=== PATIENT | female | born 1990 | race Caucasian/White ===

== ENCOUNTER 2017-07-22 17:06 | Inpatient (IN) | payer OTHER ==
[2017-07-22] MEDS: SOD CHLORIDE 0.9% 500 ML IV (18:46)
[2017-07-22 18:48] LABS: ADD UMIC NO; UR ASCORBIC ACID NEGATIVE (NEGATIVE); UR BILIRUBIN (Dip) 2+ mg/dL (NEGATIVE); UR BLOOD (Dip) NEGATIVE (NEGATIVE); UR CLARITY CLEAR (CLEAR); UR COLOR AMBER (YELLOW); UR GLUCOSE (Dip) NEGATIVE (NEGATIVE); UR KETONES (Dip) NEGATIVE (NEGATIVE); UR LEUKOCYTE ESTERASE (Dip) NEGATIVE Leu/ul (NEGATIVE); UR NITRITE (Dip) NEGATIVE (NEGATIVE); UR SPECIFIC GRAVITY (Dip) 1.013 (1.003-1.030); UR TOTAL PROTEIN (Dip) NEGATIVE (NEGATIVE); UR UROBILINOGEN (Dip) 1+ mg/dL (NEGATIVE)
[2017-07-22 18:49] LABS: ADD MAN DIFF? NO
[2017-07-22 18:52] LABS: WHITE BLOOD COUNT 7.3 10^3/ul (4.8-10.8)
[2017-07-22 18:52] LABS: BASOPHILS % 0.4 % (0.0-2.0); EOSINOPHILS # 0.1 10^3/ul (0.0-0.5); EOSINOPHILS % 0.7 % (0.0-7.0); HEMATOCRIT 25.1 % (37.0-47.0); HEMOGLOBIN 8.4 g/dl (12.0-16.0); LYMPHOCYTES # 1.6 10^3/ul (0.8-2.9); LYMPHOCYTES % 21.1 % (15.0-51.0); MEAN CORPUSCULAR HEMOGLOBIN 32.1 pg (29.0-33.0); MEAN CORPUSCULAR HGB CONC 33.5 g/dl (32.0-37.0); MEAN CORPUSCULAR VOLUME 95.8 fl (82.0-101.0); MEAN PLATELET VOLUME 10.7 fl (7.4-10.4); MONOCYTE # 0.9 10^3/ul (0.3-0.9); MONOCYTES % 11.9 % (0.0-11.0); NEUTROPHIL # 4.8 10^3/ul (1.6-7.5); NEUTROPHILS % 65.4 % (39.0-77.0); PLATELET COUNT 130 10^3/UL (140-415); RED BLOOD COUNT 2.62 10^6/ul (4.20-5.40); RED CELL DISTRIBUTION WIDTH 19.2 % (11.5-14.5)
[2017-07-22 18:54] LABS: POSITIVE DIFF @See below
[2017-07-22 19:12] LABS: ALANINE AMINOTRANSFERASE 34 IU/L (13-69); ALBUMIN 3.2 g/dl (3.3-4.9); ALBUMIN/GLOBULIN RATIO 0.84; ALKALINE PHOSPHATASE 199 IU/L (42-121); ANION GAP 19 (8-16); ASPARTATE AMINO TRANSFERASE 57 IU/L (15-46); BILIRUBIN,INDIRECT 4.4 mg/dl (0-1.1); BILIRUBIN,TOTAL 15.3 mg/dl (0.2-1.3); BLOOD UREA NITROGEN 3 mg/dl (7-20); CALCIUM 9.1 mg/dl (8.4-10.2); CARBON DIOXIDE 21 mmol/L (21-31); CHLORIDE 102 mmol/L (97-110); CREATININE 0.75 mg/dl (0.44-1.00); GLUCOSE 91 mg/dl (70-220); INR 2.75; LIPASE 28 U/L (23-300); POTASSIUM 4.7 mmol/L (3.5-5.1); PROTIME 29.5 Sec (12.2-14.2); PT RATIO 2.3; SODIUM 137 mmol/L (135-144)
[2017-07-22 19:13] LABS: AMMONIA 48 umol/l (9-30)
[2017-07-22 19:15] LABS: LACTIC ACID 3.4 mmol/L (0.5-2.0)
[2017-07-22 19:23] LABS: TROPONIN-I 0.014 ng/ml (0.00-0.12)
[2017-07-22] MEDS: LACTULOSE 30ML CUP PO (19:28)
[2017-07-22] MEDS: KETOCONAZOLE 2% 15 GM CR TOP (20:15)
[2017-07-22] MEDS ORDERED: traMADol 50 MG TAB PO (22:30)
[2017-07-23] MEDS: PANTOPRAZOLE (EC) 40 MG TAB PO ×2 (06:00→07:30)
[2017-07-23] MEDS: LACTULOSE 30ML CUP PO ×6 (06:00→22:00)
[2017-07-23] MEDS: LEVOTHYROXINE 50 MCG TAB PO ×2 (07:00→07:29)
[2017-07-23 07:12] LABS: AMMONIA 46 umol/l (9-30)
[2017-07-23 07:18] LABS: ANION GAP 13 (8-16); BLOOD UREA NITROGEN 3 mg/dl (7-20); CALCIUM 9.2 mg/dl (8.4-10.2); CARBON DIOXIDE 23 mmol/L (21-31); CHLORIDE 106 mmol/L (97-110); CREATININE 0.69 mg/dl (0.44-1.00); GLUCOSE 75 mg/dl (70-220); POTASSIUM 4.7 mmol/L (3.5-5.1); SODIUM 137 mmol/L (135-144)
[2017-07-23] MEDS: FUROSEMIDE 40 MG INJ IV (07:33)
[2017-07-23] MEDS: THIAMINE 100 MG TAB PO (08:19)
[2017-07-23] MEDS: PROPRANOLOL 20 MG TAB PO ×2 (08:19→21:00)
[2017-07-23] MEDS: SPIRONOLACTONE 50 MG TAB PO (08:19)
[2017-07-23] MEDS: RIFAXIMIN 550 MG TAB PO ×2 (08:19→21:00)
[2017-07-23] MEDS: FOLIC ACID 1 MG TAB PO (08:19)
[2017-07-23] MEDS ORDERED: SOD CHLORIDE 0.9% 1,000 ML IV (23:00)
[2017-07-24] MEDS: SOD CHLORIDE 0.9% 500 ML IV ×3 (00:38→20:15)
[2017-07-24 05:49] LABS: AADO2 Arterial 187.3 mmHg (7.0-24.0); Allen Test ACCEPTAB; Arterial Blood Gas Oxygen Sat 97.6 mmHG (95.0-98.0); Arterial COHb 0.6 % (0.0-3.0); Arterial HCO3 21.6 mmol/L (22.0-26.0); Arterial MetHb 0 % (0.0-1.5); Arterial Total Hemglobin 9.4 g/dl (12.0-18.0); Arterial pCO2 28.5 mmhg (35-45); MODE NASAL CANNULA; Site Left Radial
[2017-07-24 06:19] LABS: ADD MAN DIFF? NO
[2017-07-24 06:21] LABS: WHITE BLOOD COUNT 9.9 10^3/ul (4.8-10.8)
[2017-07-24 06:21] LABS: BASOPHILS % 0.3 % (0.0-2.0); EOSINOPHILS % 0.1 % (0.0-7.0); HEMATOCRIT 25.3 % (37.0-47.0); HEMOGLOBIN 8.6 g/dl (12.0-16.0); LYMPHOCYTES # 2.7 10^3/ul (0.8-2.9); LYMPHOCYTES % 27.2 % (15.0-51.0); MEAN CORPUSCULAR HEMOGLOBIN 32.3 pg (29.0-33.0); MEAN CORPUSCULAR VOLUME 95.1 fl (82.0-101.0); MONOCYTE # 1.3 10^3/ul (0.3-0.9); MONOCYTES % 13.1 % (0.0-11.0); NEUTROPHIL # 5.7 10^3/ul (1.6-7.5); NEUTROPHILS % 57.6 % (39.0-77.0); PLATELET COUNT 204 10^3/UL (140-415); RED BLOOD COUNT 2.66 10^6/ul (4.20-5.40); RED CELL DISTRIBUTION WIDTH 19.7 % (11.5-14.5)
[2017-07-24 06:49] LABS: ALANINE AMINOTRANSFERASE 39 IU/L (13-69); ALBUMIN 3.4 g/dl (3.3-4.9); ALBUMIN/GLOBULIN RATIO 0.77; ALKALINE PHOSPHATASE 199 IU/L (42-121); ANION GAP 19 (8-16); ASPARTATE AMINO TRANSFERASE 90 IU/L (15-46); BILIRUBIN,INDIRECT 5.1 mg/dl (0-1.1); BILIRUBIN,TOTAL 17.2 mg/dl (0.2-1.3); BLOOD UREA NITROGEN 6 mg/dl (7-20); CALCIUM 9.7 mg/dl (8.4-10.2); CARBON DIOXIDE 22 mmol/L (21-31); CHLORIDE 105 mmol/L (97-110); CREATININE 0.92 mg/dl (0.44-1.00); GLUCOSE 72 mg/dl (70-220); POTASSIUM 4.3 mmol/L (3.5-5.1); SODIUM 142 mmol/L (135-144); TOTAL PROTEIN 7.8 g/dl (6.1-8.1)
[2017-07-24] MEDS: BISACODYL 10 MG SUPP PR (06:51)
[2017-07-24] MEDS: FUROSEMIDE 40 MG INJ IV (06:59)
[2017-07-24 07:02] LABS: AMMONIA 66 umol/l (9-30)
[2017-07-24] MEDS: PANTOPRAZOLE (EC) 40 MG TAB PO (12:58)
[2017-07-24] MEDS: RIFAXIMIN 550 MG TAB PO ×2 (12:58→21:36)
[2017-07-24] MEDS: THIAMINE 100 MG TAB PO (12:58)
[2017-07-24] MEDS: SPIRONOLACTONE 50 MG TAB PO (12:59)
[2017-07-24] MEDS: LEVOTHYROXINE 50 MCG TAB PO (12:59)
[2017-07-24] MEDS: PROPRANOLOL 20 MG TAB PO ×2 (12:59→21:45)
[2017-07-24] MEDS: LACTULOSE 30ML CUP PO ×2 (13:00→21:36)
[2017-07-24] MEDS: FOLIC ACID 1 MG TAB PO (13:00)
[2017-07-25] MEDS: SOD CHLORIDE 0.9% 500 ML IV ×2 (06:15→21:09)
[2017-07-25] MEDS: PANTOPRAZOLE (EC) 40 MG TAB PO (06:48)
[2017-07-25] MEDS: LACTULOSE 30ML CUP PO ×4 (06:48→21:06)
[2017-07-25] MEDS: FUROSEMIDE 40 MG INJ IV (06:50)
[2017-07-25 08:17] LABS: ADD MAN DIFF? NO
[2017-07-25 08:20] LABS: WHITE BLOOD COUNT 8.7 10^3/ul (4.8-10.8)
[2017-07-25 08:20] LABS: BASOPHILS % 0.5 % (0.0-2.0); EOSINOPHILS # 0.1 10^3/ul (0.0-0.5); EOSINOPHILS % 0.6 % (0.0-7.0); HEMATOCRIT 27.1 % (37.0-47.0); HEMOGLOBIN 9.2 g/dl (12.0-16.0); LYMPHOCYTES # 2.2 10^3/ul (0.8-2.9); LYMPHOCYTES % 25.8 % (15.0-51.0); MEAN CORPUSCULAR HEMOGLOBIN 31.7 pg (29.0-33.0); MEAN CORPUSCULAR HGB CONC 33.9 g/dl (32.0-37.0); MEAN CORPUSCULAR VOLUME 93.4 fl (82.0-101.0); MEAN PLATELET VOLUME 10.8 fl (7.4-10.4); MONOCYTES % 11.9 % (0.0-11.0); NEUTROPHIL # 5.1 10^3/ul (1.6-7.5); NEUTROPHILS % 59.2 % (39.0-77.0); PLATELET COUNT 182 10^3/UL (140-415); RED CELL DISTRIBUTION WIDTH 19.9 % (11.5-14.5)
[2017-07-25 09:09] LABS: ANION GAP 20 (8-16); BLOOD UREA NITROGEN 9 mg/dl (7-20); CALCIUM 9.2 mg/dl (8.4-10.2); CARBON DIOXIDE 22 mmol/L (21-31); CHLORIDE 106 mmol/L (97-110); GLUCOSE 90 mg/dl (70-220); POTASSIUM 3.6 mmol/L (3.5-5.1); SODIUM 144 mmol/L (135-144)
[2017-07-25] MEDS: PROPRANOLOL 20 MG TAB PO ×2 (10:53→22:14)
[2017-07-25] MEDS: SPIRONOLACTONE 50 MG TAB PO (10:54)
[2017-07-25] MEDS: RIFAXIMIN 550 MG TAB PO ×2 (10:54→22:23)
[2017-07-25] MEDS: FOLIC ACID 1 MG TAB PO (10:54)
[2017-07-25] MEDS: THIAMINE 100 MG TAB PO (10:54)
[2017-07-25] MEDS: MEROPENEM 1 GM/50ML(PMX) 50 ML IVPB ×2 (10:55→22:00)
[2017-07-25] MEDS: D5W-0.45 NACL + KCL 20 MEQ 1,000 ML IV ×2 (10:57→21:10)
[2017-07-25] MEDS: LEVOTHYROXINE 50 MCG TAB PO (10:58)
[2017-07-26] MEDS: LACTULOSE 30ML CUP PO ×6 (01:05→21:37)
[2017-07-26] MEDS: SOD CHLORIDE 0.9% 500 ML IV (02:45)
[2017-07-26] MEDS: FUROSEMIDE 40 MG INJ IV (05:36)
[2017-07-26] MEDS: PANTOPRAZOLE (EC) 40 MG TAB PO (05:36)
[2017-07-26 05:46] LABS: ADD MAN DIFF? NO
[2017-07-26 05:50] LABS: WHITE BLOOD COUNT 5.6 10^3/ul (4.8-10.8)
[2017-07-26 05:50] LABS: ABNORMAL IP MESSAGE 1; BASOPHILS % 0.2 % (0.0-2.0); EOSINOPHILS % 0.5 % (0.0-7.0); HEMATOCRIT 15.8 % (37.0-47.0); LYMPHOCYTES # 1.4 10^3/ul (0.8-2.9); LYMPHOCYTES % 24.2 % (15.0-51.0); MEAN CORPUSCULAR HEMOGLOBIN 33.1 pg (29.0-33.0); MEAN CORPUSCULAR HGB CONC 32.3 g/dl (32.0-37.0); MEAN CORPUSCULAR VOLUME 102.6 fl (82.0-101.0); MEAN PLATELET VOLUME 10.6 fl (7.4-10.4); MONOCYTE # 0.7 10^3/ul (0.3-0.9); MONOCYTES % 11.6 % (0.0-11.0); NEUTROPHIL # 3.5 10^3/ul (1.6-7.5); NEUTROPHILS % 62.1 % (39.0-77.0); NUCLEATED RED BLOOD CELLS% 0.4 /100WBC (0.0-0.0); PLATELET COUNT 90 10^3/UL (140-415); RED BLOOD COUNT 1.54 10^6/ul (4.20-5.40)
[2017-07-26 06:13] LABS: POSITIVE DIFF @See below
[2017-07-26 06:17] LABS: HEMOGLOBIN 5.1 g/dl (12.0-16.0)
[2017-07-26 06:19] LABS: PATH REVIEWED BY Y
[2017-07-26 07:03] LABS: ANISOCYTOSIS 1+ (0-0); BAND NEUTROPHILS #M 0.1 10^3/ul (0.0-0.6); BAND NEUTROPHILS % (M) 3 % (0-4); BURR CELLS 3+ (0-0); EOSINOPHILS % (M) 1 % (0-7); GIANT THROMBO% (M) 1 % (0-0); LYMPHOCYTES #M 0.9 10^3/ul (0.8-2.9); LYMPHOCYTES % (M) 17 % (15-51); METAMYELOCYTES %M 1 % (0-0); MONOCYTES % (M) 1 % (0-11); PLATELET ESTIMATE DECREASED; POIKILOCYTOSIS 3+ (0-0); POLYCHROMASIA 3+ (0-0); REACTIVE LYMPHOCYTES% (M) 1 % (0-0); SEG NEUT #M 4.3 10^3/ul (1.7-7.5); SEGMENTED NEUTROPHILS (M) % 76 % (39-77); SMUDGE%M 6 % (0-0)
[2017-07-26 07:23] LABS: ANION GAP 17 (8-16); BLOOD UREA NITROGEN 10 mg/dl (7-20); CALCIUM 8.5 mg/dl (8.4-10.2); CARBON DIOXIDE 21 mmol/L (21-31); CHLORIDE 110 mmol/L (97-110); CREATININE 1.16 mg/dl (0.44-1.00); GLUCOSE 139 mg/dl (70-220); POTASSIUM 3.3 mmol/L (3.5-5.1); SODIUM 145 mmol/L (135-144)
[2017-07-26] MEDS: LEVOTHYROXINE 50 MCG TAB PO (08:00)
[2017-07-26] MEDS: THIAMINE 100 MG TAB PO (09:11)
[2017-07-26] MEDS: SPIRONOLACTONE 50 MG TAB PO (09:12)
[2017-07-26] MEDS: FOLIC ACID 1 MG TAB PO (09:12)
[2017-07-26] MEDS: RIFAXIMIN 550 MG TAB PO ×2 (09:12→21:38)
[2017-07-26] MEDS: MEROPENEM 1 GM/50ML(PMX) 50 ML IVPB ×2 (09:48→21:38)
[2017-07-26] MEDS: PROPRANOLOL 20 MG TAB PO ×2 (09:48→21:37)
[2017-07-26 11:02] LABS: ADD MAN DIFF? NO
[2017-07-26 11:04] LABS: BASOPHILS % 0.2 % (0.0-2.0); EOSINOPHILS % 0.5 % (0.0-7.0); HEMATOCRIT 21.8 % (37.0-47.0); LYMPHOCYTES # 2.1 10^3/ul (0.8-2.9); MEAN CORPUSCULAR HEMOGLOBIN 32.9 pg (29.0-33.0); MEAN CORPUSCULAR HGB CONC 34.9 g/dl (32.0-37.0); MEAN CORPUSCULAR VOLUME 94.4 fl (82.0-101.0); MEAN PLATELET VOLUME 11.7 fl (7.4-10.4); MONOCYTE # 1.1 10^3/ul (0.3-0.9); MONOCYTES % 12.7 % (0.0-11.0); NEUTROPHILS % 59.7 % (39.0-77.0); NUCLEATED RED BLOOD CELLS% 0.2 /100WBC (0.0-0.0); PLATELET COUNT 142 10^3/UL (140-415); RED BLOOD COUNT 2.31 10^6/ul (4.20-5.40); RED CELL DISTRIBUTION WIDTH 20.2 % (11.5-14.5)
[2017-07-26 11:04] LABS: WHITE BLOOD COUNT 8.3 10^3/ul (4.8-10.8)
[2017-07-26 11:09] LABS: HEMOGLOBIN 7.6 g/dl (12.0-16.0)
[2017-07-26] MEDS: D5W-0.45 NACL + KCL 20 MEQ 1,000 ML IV (13:24)
[2017-07-26] MEDS: POTASSIUM CHLORIDE 250 ML IVPB (14:37)
[2017-07-26] MEDS: LIDOCAINE 1% (MPF) 5 ML VIAL SC (19:05)
[2017-07-26] MEDS: SOD CHLORIDE 0.9% 100 ML (19:15)
[2017-07-27] MEDS: LACTULOSE 30ML CUP PO ×6 (00:58→20:42)
[2017-07-27] MEDS: D5W-0.45 NACL + KCL 20 MEQ 1,000 ML IV ×3 (00:58→21:24)
[2017-07-27 05:34] LABS: ADD MAN DIFF? NO
[2017-07-27 05:43] LABS: WHITE BLOOD COUNT 7.7 10^3/ul (4.8-10.8)
[2017-07-27 05:43] LABS: BASOPHILS % 0.4 % (0.0-2.0); EOSINOPHILS # 0.1 10^3/ul (0.0-0.5); HEMATOCRIT 23.9 % (37.0-47.0); HEMOGLOBIN 8.3 g/dl (12.0-16.0); LYMPHOCYTES # 1.8 10^3/ul (0.8-2.9); LYMPHOCYTES % 23.8 % (15.0-51.0); MEAN CORPUSCULAR HEMOGLOBIN 32.8 pg (29.0-33.0); MEAN CORPUSCULAR HGB CONC 34.7 g/dl (32.0-37.0); MEAN CORPUSCULAR VOLUME 94.5 fl (82.0-101.0); MEAN PLATELET VOLUME 10.8 fl (7.4-10.4); MONOCYTE # 0.8 10^3/ul (0.3-0.9); MONOCYTES % 10.1 % (0.0-11.0); NEUTROPHIL # 4.8 10^3/ul (1.6-7.5); NEUTROPHILS % 62.5 % (39.0-77.0); PLATELET COUNT 149 10^3/UL (140-415); RED BLOOD COUNT 2.53 10^6/ul (4.20-5.40); RED CELL DISTRIBUTION WIDTH 21.4 % (11.5-14.5)
[2017-07-27] MEDS: FUROSEMIDE 40 MG INJ IV (06:01)
[2017-07-27 06:02] LABS: AMMONIA 75 umol/l (9-30)
[2017-07-27] MEDS: PANTOPRAZOLE (EC) 40 MG TAB PO (06:02)
[2017-07-27] MEDS: LEVOTHYROXINE 50 MCG TAB PO (06:02)
[2017-07-27 06:19] LABS: ALANINE AMINOTRANSFERASE 35 IU/L (13-69); ALBUMIN/GLOBULIN RATIO 0.66; ALKALINE PHOSPHATASE 162 IU/L (42-121); ANION GAP 14 (8-16); ASPARTATE AMINO TRANSFERASE 90 IU/L (15-46); BILIRUBIN,INDIRECT 4.6 mg/dl (0-1.1); BILIRUBIN,TOTAL 16.5 mg/dl (0.2-1.3); BLOOD UREA NITROGEN 8 mg/dl (7-20); CALCIUM 9.3 mg/dl (8.4-10.2); CARBON DIOXIDE 23 mmol/L (21-31); CHLORIDE 115 mmol/L (97-110); CREATININE 0.98 mg/dl (0.44-1.00); GLUCOSE 148 mg/dl (70-220); POTASSIUM 3.5 mmol/L (3.5-5.1); SODIUM 148 mmol/L (135-144); TOTAL PROTEIN 7.5 g/dl (6.1-8.1)
[2017-07-27 06:20] LABS: ANION GAP 18 (8-16); BLOOD UREA NITROGEN 9 mg/dl (7-20); CARBON DIOXIDE 21 mmol/L (21-31); CHLORIDE 113 mmol/L (97-110); CREATININE 0.97 mg/dl (0.44-1.00); GLUCOSE 149 mg/dl (70-220); MAGNESIUM 1.1 mg/dl (1.7-2.5); POTASSIUM 3.5 mmol/L (3.5-5.1); SODIUM 148 mmol/L (135-144)
[2017-07-27] MEDS: MEROPENEM 1 GM/50ML(PMX) 50 ML IVPB ×2 (08:49→20:42)
[2017-07-27] MEDS: SPIRONOLACTONE 50 MG TAB PO (08:49)
[2017-07-27] MEDS: THIAMINE 100 MG TAB PO (08:49)
[2017-07-27] MEDS: FOLIC ACID 1 MG TAB PO (08:49)
[2017-07-27] MEDS: RIFAXIMIN 550 MG TAB PO ×2 (08:49→20:43)
[2017-07-27] MEDS: PROPRANOLOL 20 MG TAB PO ×2 (08:49→20:43)
[2017-07-27] MEDS: MAGNESIUM SULFATE 3 GM in DEXTROSE 5% 100 ML IVPB (18:36)
[2017-07-28] MEDS: LACTULOSE 30ML CUP PO ×6 (00:03→20:20)
[2017-07-28 05:11] LABS: ADD MAN DIFF? NO
[2017-07-28 05:19] LABS: BASOPHILS % 0.4 % (0.0-2.0); EOSINOPHILS # 0.1 10^3/ul (0.0-0.5); EOSINOPHILS % 1.4 % (0.0-7.0); HEMATOCRIT 23.9 % (37.0-47.0); HEMOGLOBIN 7.9 g/dl (12.0-16.0); LYMPHOCYTES # 1.2 10^3/ul (0.8-2.9); LYMPHOCYTES % 20.9 % (15.0-51.0); MEAN CORPUSCULAR HEMOGLOBIN 32.2 pg (29.0-33.0); MEAN CORPUSCULAR HGB CONC 33.1 g/dl (32.0-37.0); MEAN CORPUSCULAR VOLUME 97.6 fl (82.0-101.0); MEAN PLATELET VOLUME 10.9 fl (7.4-10.4); MONOCYTE # 0.5 10^3/ul (0.3-0.9); MONOCYTES % 9.5 % (0.0-11.0); NEUTROPHIL # 3.8 10^3/ul (1.6-7.5); PLATELET COUNT 143 10^3/UL (140-415); RED BLOOD COUNT 2.45 10^6/ul (4.20-5.40); RED CELL DISTRIBUTION WIDTH 21.5 % (11.5-14.5)
[2017-07-28 05:19] LABS: WHITE BLOOD COUNT 5.7 10^3/ul (4.8-10.8)
[2017-07-28] MEDS: FUROSEMIDE 40 MG INJ IV (05:44)
[2017-07-28] MEDS: PANTOPRAZOLE (EC) 40 MG TAB PO (05:44)
[2017-07-28 05:48] LABS: MAGNESIUM 2.1 mg/dl (1.7-2.5)
[2017-07-28] MEDS: LEVOTHYROXINE 50 MCG TAB PO (06:04)
[2017-07-28 06:34] LABS: ANION GAP 13 (8-16); BLOOD UREA NITROGEN 8 mg/dl (7-20); CALCIUM 8.8 mg/dl (8.4-10.2); CARBON DIOXIDE 22 mmol/L (21-31); CHLORIDE 119 mmol/L (97-110); CREATININE 0.74 mg/dl (0.44-1.00); GLUCOSE 134 mg/dl (70-220); POTASSIUM 3.7 mmol/L (3.5-5.1); SODIUM 150 mmol/L (135-144)
[2017-07-28] MEDS: PROPRANOLOL 20 MG TAB PO ×2 (08:32→20:20)
[2017-07-28] MEDS: THIAMINE 100 MG TAB PO (08:33)
[2017-07-28] MEDS: MEROPENEM 1 GM/50ML(PMX) 50 ML IVPB ×2 (08:33→20:10)
[2017-07-28] MEDS: FOLIC ACID 1 MG TAB PO (08:33)
[2017-07-28] MEDS: SPIRONOLACTONE 50 MG TAB PO (08:33)
[2017-07-28] MEDS: RIFAXIMIN 550 MG TAB PO ×2 (08:33→20:18)
[2017-07-28] MEDS: D5W-0.45 NACL + KCL 20 MEQ 1,000 ML IV (11:53)
[2017-07-28] MEDS: D5W + KCL 20 MEQ 1,000 ML IV ×2 (16:00→23:21)
[2017-07-28 17:56] LABS: SODIUM,URINE RANDOM 171 mmol/L (30-90)
[2017-07-28 18:54] LABS: OSMOLALITY,URINE 466 mOsm/kg (250-1200)
[2017-07-29] MEDS: LACTULOSE 30ML CUP PO ×6 (00:10→21:38)
[2017-07-29 04:58] LABS: ADD MAN DIFF? NO
[2017-07-29 05:13] LABS: WHITE BLOOD COUNT 7.5 10^3/ul (4.8-10.8)
[2017-07-29 05:13] LABS: ABNORMAL IP MESSAGE 1; BASOPHILS % 0.5 % (0.0-2.0); EOSINOPHILS # 0.1 10^3/ul (0.0-0.5); EOSINOPHILS % 1.3 % (0.0-7.0); HEMATOCRIT 25.6 % (37.0-47.0); HEMOGLOBIN 8.5 g/dl (12.0-16.0); LYMPHOCYTES # 1.3 10^3/ul (0.8-2.9); LYMPHOCYTES % 17.5 % (15.0-51.0); MEAN CORPUSCULAR HEMOGLOBIN 32.7 pg (29.0-33.0); MEAN CORPUSCULAR HGB CONC 33.2 g/dl (32.0-37.0); MEAN CORPUSCULAR VOLUME 98.5 fl (82.0-101.0); MEAN PLATELET VOLUME 11.5 fl (7.4-10.4); MONOCYTE # 0.8 10^3/ul (0.3-0.9); NEUTROPHIL # 5.2 10^3/ul (1.6-7.5); NEUTROPHILS % 69.1 % (39.0-77.0); PLATELET COUNT 158 10^3/UL (140-415); RED CELL DISTRIBUTION WIDTH 22.1 % (11.5-14.5)
[2017-07-29 05:17] LABS: POSITIVE DIFF @See below
[2017-07-29] MEDS: FUROSEMIDE 40 MG INJ IV (05:18)
[2017-07-29] MEDS: PANTOPRAZOLE (EC) 40 MG TAB PO (05:18)
[2017-07-29 05:32] LABS: AMMONIA 72 umol/l (9-30)
[2017-07-29 05:33] LABS: ANION GAP 15 (8-16); BLOOD UREA NITROGEN 8 mg/dl (7-20); CALCIUM 9.3 mg/dl (8.4-10.2); CARBON DIOXIDE 21 mmol/L (21-31); CHLORIDE 120 mmol/L (97-110); CREATININE 0.77 mg/dl (0.44-1.00); GLUCOSE 113 mg/dl (70-220); POTASSIUM 3.8 mmol/L (3.5-5.1); SODIUM 152 mmol/L (135-144)
[2017-07-29 06:18] LABS: THYROID STIMULATING HORMONE 0.887 MIU/L (0.465-4.680)
[2017-07-29] MEDS: LEVOTHYROXINE 50 MCG TAB PO (06:25)
[2017-07-29] MEDS: D5W + KCL 20 MEQ 1,000 ML IV ×2 (06:26→17:57)
[2017-07-29 07:47] LABS: OSMOLALITY 308 mOsm/kg (280-295)
[2017-07-29] MEDS: MEROPENEM 1 GM/50ML(PMX) 50 ML IVPB ×2 (11:02→21:38)
[2017-07-29] MEDS: SPIRONOLACTONE 50 MG TAB PO (11:02)
[2017-07-29] MEDS: RIFAXIMIN 550 MG TAB PO ×2 (11:02→21:40)
[2017-07-29] MEDS: FOLIC ACID 1 MG TAB PO (11:02)
[2017-07-29] MEDS: THIAMINE 100 MG TAB PO (11:02)
[2017-07-29] MEDS: PROPRANOLOL 20 MG TAB PO ×2 (11:09→21:00)
[2017-07-29 13:41] LABS: INR 2.85; PT RATIO 2.4
[2017-07-29 14:38] LABS: PROTIME 30.7 Sec (11.9-14.9)
[2017-07-29] MEDS ORDERED: LORAZEPAM 2 MG INJ IV (20:30)
[2017-07-29] MEDS: LORAZEPAM 2 MG INJ IV (21:00)
[2017-07-30] MEDS: LACTULOSE 30ML CUP PO ×6 (00:27→20:50)
[2017-07-30 05:14] LABS: ADD MAN DIFF? NO
[2017-07-30 05:18] LABS: WHITE BLOOD COUNT 9.8 10^3/ul (4.8-10.8)
[2017-07-30 05:18] LABS: BASOPHIL # 0.1 10^3/ul (0.0-0.1); BASOPHILS % 0.7 % (0.0-2.0); EOSINOPHILS # 0.2 10^3/ul (0.0-0.5); EOSINOPHILS % 1.9 % (0.0-7.0); HEMATOCRIT 25.9 % (37.0-47.0); HEMOGLOBIN 8.7 g/dl (12.0-16.0); LYMPHOCYTES # 1.7 10^3/ul (0.8-2.9); LYMPHOCYTES % 17.8 % (15.0-51.0); MEAN CORPUSCULAR HEMOGLOBIN 32.8 pg (29.0-33.0); MEAN CORPUSCULAR HGB CONC 33.6 g/dl (32.0-37.0); MEAN CORPUSCULAR VOLUME 97.7 fl (82.0-101.0); MEAN PLATELET VOLUME 11.5 fl (7.4-10.4); MONOCYTE # 0.7 10^3/ul (0.3-0.9); MONOCYTES % 7.6 % (0.0-11.0); NEUTROPHIL # 6.9 10^3/ul (1.6-7.5); NEUTROPHILS % 71.2 % (39.0-77.0); PLATELET COUNT 167 10^3/UL (140-415); RED BLOOD COUNT 2.65 10^6/ul (4.20-5.40); RED CELL DISTRIBUTION WIDTH 21.2 % (11.5-14.5)
[2017-07-30] MEDS: D5W + KCL 20 MEQ 1,000 ML IV ×2 (05:40→17:08)
[2017-07-30] MEDS: PANTOPRAZOLE (EC) 40 MG TAB PO (05:53)
[2017-07-30] MEDS: FUROSEMIDE 40 MG INJ IV (05:53)
[2017-07-30] MEDS: LEVOTHYROXINE 50 MCG TAB PO (06:00)
[2017-07-30 06:02] LABS: PHOSPHORUS 2.6 mg/dl (2.5-4.9)
[2017-07-30 06:02] LABS: MAGNESIUM 1.5 mg/dl (1.7-2.5)
[2017-07-30 06:08] LABS: ALANINE AMINOTRANSFERASE 36 IU/L (13-69); ALBUMIN 2.8 g/dl (3.3-4.9); ALBUMIN/GLOBULIN RATIO 0.58; ALKALINE PHOSPHATASE 151 IU/L (42-121); ANION GAP 13 (8-16); ASPARTATE AMINO TRANSFERASE 98 IU/L (15-46); BILIRUBIN,INDIRECT 3.9 mg/dl (0-1.1); BILIRUBIN,TOTAL 16.3 mg/dl (0.2-1.3); BLOOD UREA NITROGEN 9 mg/dl (7-20); CALCIUM 9.6 mg/dl (8.4-10.2); CARBON DIOXIDE 23 mmol/L (21-31); CHLORIDE 110 mmol/L (97-110); CREATININE 0.71 mg/dl (0.44-1.00); GLUCOSE 139 mg/dl (70-220); POTASSIUM 3.9 mmol/L (3.5-5.1); SODIUM 142 mmol/L (135-144); TOTAL PROTEIN 7.6 g/dl (6.1-8.1)
[2017-07-30] MEDS: PROPRANOLOL 20 MG TAB PO ×2 (09:38→20:50)
[2017-07-30] MEDS: SPIRONOLACTONE 50 MG TAB PO (09:38)
[2017-07-30] MEDS: MEROPENEM 1 GM/50ML(PMX) 50 ML IVPB ×2 (09:39→20:50)
[2017-07-30] MEDS: THIAMINE 100 MG TAB PO (09:39)
[2017-07-30] MEDS: RIFAXIMIN 550 MG TAB PO ×2 (09:39→20:51)
[2017-07-30] MEDS: FOLIC ACID 1 MG TAB PO (09:39)
[2017-07-30] MEDS: ALBUMIN HUMAN 25% 100 ML IV (11:07)
[2017-07-30] MEDS: MAGNESIUM SULFATE 2 GM/50 ML 50 ML IVPB (11:09)
[2017-07-30 14:02] LABS: AMMONIA 56 umol/l (9-30)
[2017-07-30] MEDS: FUROSEMIDE 20 MG INJ IV (14:08)
[2017-07-30 20:34] LABS: AMMONIA 80 umol/l (9-30)
[2017-07-31] MEDS: LACTULOSE 30ML CUP PO ×6 (00:20→20:42)
[2017-07-31 04:46] LABS: ADD MAN DIFF? NO
[2017-07-31 04:55] LABS: WHITE BLOOD COUNT 11.6 10^3/ul (4.8-10.8)
[2017-07-31 04:55] LABS: BASOPHIL # 0.1 10^3/ul (0.0-0.1); BASOPHILS % 0.7 % (0.0-2.0); EOSINOPHILS # 0.3 10^3/ul (0.0-0.5); EOSINOPHILS % 2.7 % (0.0-7.0); HEMATOCRIT 27.4 % (37.0-47.0); HEMOGLOBIN 9.2 g/dl (12.0-16.0); LYMPHOCYTES # 1.8 10^3/ul (0.8-2.9); LYMPHOCYTES % 15.8 % (15.0-51.0); MEAN CORPUSCULAR HEMOGLOBIN 32.2 pg (29.0-33.0); MEAN CORPUSCULAR HGB CONC 33.6 g/dl (32.0-37.0); MEAN CORPUSCULAR VOLUME 95.8 fl (82.0-101.0); MEAN PLATELET VOLUME 10.9 fl (7.4-10.4); MONOCYTE # 0.9 10^3/ul (0.3-0.9); MONOCYTES % 7.7 % (0.0-11.0); NEUTROPHIL # 8.4 10^3/ul (1.6-7.5); NEUTROPHILS % 72.1 % (39.0-77.0); PLATELET COUNT 171 10^3/UL (140-415); RED BLOOD COUNT 2.86 10^6/ul (4.20-5.40)
[2017-07-31 05:17] LABS: ANION GAP 13 (8-16); BLOOD UREA NITROGEN 9 mg/dl (7-20); CALCIUM 9.6 mg/dl (8.4-10.2); CARBON DIOXIDE 24 mmol/L (21-31); CHLORIDE 100 mmol/L (97-110); GLUCOSE 137 mg/dl (70-220); POTASSIUM 4.2 mmol/L (3.5-5.1); SODIUM 133 mmol/L (135-144)
[2017-07-31 05:35] LABS: AMPHETAMINE/METHAMPHETAMINE Negative (NEGATIVE); CANNABINOIDS Negative (NEGATIVE)
[2017-07-31 05:55] LABS: BARBITURATES Negative (NEGATIVE); BENZODIAZEPINES Negative (NEGATIVE); COCAINE Negative (NEGATIVE); OPIATES Negative (NEGATIVE)
[2017-07-31] MEDS: D5W + KCL 20 MEQ 1,000 ML IV ×2 (06:05→11:21)
[2017-07-31] MEDS: FUROSEMIDE 40 MG INJ IV (06:05)
[2017-07-31] MEDS: PANTOPRAZOLE (EC) 40 MG TAB PO (06:05)
[2017-07-31] MEDS: LEVOTHYROXINE 50 MCG TAB PO (06:45)
[2017-07-31] MEDS: SPIRONOLACTONE 50 MG TAB PO (08:22)
[2017-07-31] MEDS: THIAMINE 100 MG TAB PO (08:22)
[2017-07-31] MEDS: RIFAXIMIN 550 MG TAB PO ×2 (08:22→20:42)
[2017-07-31] MEDS: FOLIC ACID 1 MG TAB PO (08:22)
[2017-07-31] MEDS: MEROPENEM 1 GM/50ML(PMX) 50 ML IVPB ×2 (08:22→20:42)
[2017-07-31] MEDS: PROPRANOLOL 20 MG TAB PO ×2 (08:23→20:43)
[2017-07-31] MEDS ORDERED: NYSTATIN 30 GM POWDER BTL TOP (10:30)
[2017-07-31 11:35] LABS: ADD UMIC YES; UR ASCORBIC ACID NEGATIVE (NEGATIVE); UR BILIRUBIN (Dip) NEGATIVE (NEGATIVE); UR BLOOD (Dip) 1+ mg/dL (NEGATIVE); UR CLARITY CLEAR (CLEAR); UR COLOR AMBER (YELLOW); UR GLUCOSE (Dip) NEGATIVE (NEGATIVE); UR KETONES (Dip) NEGATIVE (NEGATIVE); UR LEUKOCYTE ESTERASE (Dip) NEGATIVE Leu/ul (NEGATIVE); UR MUCUS FEW /HPF (NONE SEEN); UR NITRITE (Dip) NEGATIVE (NEGATIVE); UR RBC 6 /HPF (0-5); UR SPECIFIC GRAVITY (Dip) 1.005 (1.003-1.030); UR TOTAL PROTEIN (Dip) NEGATIVE (NEGATIVE); UR UROBILINOGEN (Dip) NEGATIVE (NEGATIVE); UR WBC 1 /HPF (0-5)
[2017-07-31] MEDS: LISINOPRIL 5 MG TAB NGT (12:04)
[2017-07-31] MEDS: NYSTATIN 30 GM POWDER BTL TOP ×2 (12:05→20:42)
[2017-08-01] MEDS: LACTULOSE 30ML CUP PO ×6 (01:27→21:35)
[2017-08-01] MEDS: D5W + KCL 20 MEQ 1,000 ML IV ×3 (01:28→21:37)
[2017-08-01] MEDS: FUROSEMIDE 40 MG INJ IV (05:54)
[2017-08-01] MEDS: PANTOPRAZOLE (EC) 40 MG TAB PO (05:54)
[2017-08-01 06:00] LABS: ADD MAN DIFF? NO
[2017-08-01] MEDS: LEVOTHYROXINE 50 MCG TAB PO (06:00)
[2017-08-01 06:14] LABS: BASOPHIL # 0.1 10^3/ul (0.0-0.1); BASOPHILS % 0.8 % (0.0-2.0); EOSINOPHILS # 0.3 10^3/ul (0.0-0.5); EOSINOPHILS % 2.6 % (0.0-7.0); HEMATOCRIT 29.5 % (37.0-47.0); HEMOGLOBIN 10.2 g/dl (12.0-16.0); LYMPHOCYTES # 1.9 10^3/ul (0.8-2.9); LYMPHOCYTES % 14.5 % (15.0-51.0); MEAN CORPUSCULAR HEMOGLOBIN 32.5 pg (29.0-33.0); MEAN CORPUSCULAR HGB CONC 34.6 g/dl (32.0-37.0); MEAN CORPUSCULAR VOLUME 93.9 fl (82.0-101.0); MEAN PLATELET VOLUME 11.2 fl (7.4-10.4); MONOCYTE # 1.1 10^3/ul (0.3-0.9); MONOCYTES % 8.5 % (0.0-11.0); NEUTROPHIL # 9.5 10^3/ul (1.6-7.5); NEUTROPHILS % 71.7 % (39.0-77.0); PLATELET COUNT 209 10^3/UL (140-415); RED BLOOD COUNT 3.14 10^6/ul (4.20-5.40); RED CELL DISTRIBUTION WIDTH 19.8 % (11.5-14.5)
[2017-08-01 06:14] LABS: WHITE BLOOD COUNT 13.3 10^3/ul (4.8-10.8)
[2017-08-01 06:34] LABS: AMMONIA 61 umol/l (9-30)
[2017-08-01 06:41] LABS: ANION GAP 14 (8-16); BLOOD UREA NITROGEN 13 mg/dl (7-20); CALCIUM 9.8 mg/dl (8.4-10.2); CARBON DIOXIDE 24 mmol/L (21-31); CHLORIDE 99 mmol/L (97-110); CREATININE 1.02 mg/dl (0.44-1.00); GLUCOSE 175 mg/dl (70-220); MAGNESIUM 1.8 mg/dl (1.7-2.5); POTASSIUM 4.2 mmol/L (3.5-5.1); SODIUM 133 mmol/L (135-144)
[2017-08-01] MEDS: RIFAXIMIN 550 MG TAB PO ×2 (09:02→21:36)
[2017-08-01] MEDS: FOLIC ACID 1 MG TAB PO (09:02)
[2017-08-01] MEDS: SPIRONOLACTONE 50 MG TAB PO (09:02)
[2017-08-01] MEDS: LISINOPRIL 5 MG TAB NGT (09:02)
[2017-08-01] MEDS: THIAMINE 100 MG TAB PO (09:02)
[2017-08-01] MEDS: PROPRANOLOL 20 MG TAB PO ×2 (09:03→21:36)
[2017-08-01] MEDS: NYSTATIN 30 GM POWDER BTL TOP ×2 (09:03→21:36)
[2017-08-01] MEDS: MEROPENEM 1 GM/50ML(PMX) 50 ML IVPB ×2 (09:03→21:35)
[2017-08-01 15:42] LABS: ALBUMIN 3.2 g/dl (3.3-4.9); ALKALINE PHOSPHATASE 165 IU/L (42-121)
[2017-08-01 15:42] LABS: ALANINE AMINOTRANSFERASE 36 IU/L (13-69)
[2017-08-02] MEDS: LACTULOSE 30ML CUP PO ×6 (01:13→20:36)
[2017-08-02] MEDS: FUROSEMIDE 40 MG INJ IV (05:03)
[2017-08-02] MEDS: PANTOPRAZOLE (EC) 40 MG TAB PO (05:03)
[2017-08-02 06:05] LABS: AADO2 Arterial 25.8 mmHg (7.0-24.0); Allen Test ACCEPTAB; Arterial Base Excess -2.5 mmol/L (-3.0-3); Arterial Blood Gas Oxygen Sat 96.7 mmHG (95.0-98.0); Arterial COHb 1.3 % (0.0-3.0); Arterial Fraction of Oxyhgb 95.3 % (93.0-99.0); Arterial HCO3 20.7 mmol/L (22.0-26.0); Arterial MetHb 0.1 % (0.0-1.5); Arterial Total Hemglobin 11.9 g/dl (12.0-18.0); Arterial pCO2 30.8 mmhg (35-45); MODE ROOM AIR; Site Right Radial
[2017-08-02] MEDS: LEVOTHYROXINE 50 MCG TAB PO (06:24)
[2017-08-02 06:32] LABS: ADD MAN DIFF? NO
[2017-08-02 06:49] LABS: BASOPHIL # 0.1 10^3/ul (0.0-0.1); BASOPHILS % 0.9 % (0.0-2.0); EOSINOPHILS # 0.4 10^3/ul (0.0-0.5); EOSINOPHILS % 2.6 % (0.0-7.0); HEMATOCRIT 29.9 % (37.0-47.0); HEMOGLOBIN 10.5 g/dl (12.0-16.0); LYMPHOCYTES # 2.2 10^3/ul (0.8-2.9); LYMPHOCYTES % 14.2 % (15.0-51.0); MEAN CORPUSCULAR HEMOGLOBIN 33.1 pg (29.0-33.0); MEAN CORPUSCULAR HGB CONC 35.1 g/dl (32.0-37.0); MEAN CORPUSCULAR VOLUME 94.3 fl (82.0-101.0); MEAN PLATELET VOLUME 11.4 fl (7.4-10.4); MONOCYTE # 1.4 10^3/ul (0.3-0.9); MONOCYTES % 9.3 % (0.0-11.0); NEUTROPHIL # 10.7 10^3/ul (1.6-7.5); NEUTROPHILS % 70.6 % (39.0-77.0); PLATELET COUNT 213 10^3/UL (140-415); RED BLOOD COUNT 3.17 10^6/ul (4.20-5.40); RED CELL DISTRIBUTION WIDTH 19.9 % (11.5-14.5)
[2017-08-02 06:49] LABS: WHITE BLOOD COUNT 15.2 10^3/ul (4.8-10.8)
[2017-08-02 07:01] LABS: INR 2.12; PROTIME 24.3 Sec (11.9-14.9); PT RATIO 1.9
[2017-08-02 07:02] LABS: PARTIAL THROMBOPLASTIN TIME 48.8 Sec (25.0-35.0)
[2017-08-02 07:03] LABS: ALANINE AMINOTRANSFERASE 36 IU/L (13-69); ALBUMIN 3.3 g/dl (3.3-4.9); ALBUMIN/GLOBULIN RATIO 0.68; ALKALINE PHOSPHATASE 198 IU/L (42-121); ASPARTATE AMINO TRANSFERASE 138 IU/L (15-46); BILIRUBIN,INDIRECT 4.3 mg/dl (0-1.1); BILIRUBIN,TOTAL 18.3 mg/dl (0.2-1.3); BLOOD UREA NITROGEN 20 mg/dl (7-20); CALCIUM 9.8 mg/dl (8.4-10.2); CARBON DIOXIDE 23 mmol/L (21-31); CHLORIDE 101 mmol/L (97-110); CREATININE 1.23 mg/dl (0.44-1.00); GLUCOSE 167 mg/dl (70-220); POTASSIUM 4.3 mmol/L (3.5-5.1); TOTAL PROTEIN 8.1 g/dl (6.1-8.1)
[2017-08-02 07:04] LABS: ANION GAP 14 (8-16); SODIUM 134 mmol/L (135-144)
[2017-08-02 07:18] LABS: PHOSPHORUS 3.1 mg/dl (2.5-4.9)
[2017-08-02] MEDS: SPIRONOLACTONE 50 MG TAB PO (08:59)
[2017-08-02] MEDS: MEROPENEM 1 GM/50ML(PMX) 50 ML IVPB ×2 (08:59→20:38)
[2017-08-02] MEDS: LISINOPRIL 5 MG TAB NGT (08:59)
[2017-08-02] MEDS: THIAMINE 100 MG TAB PO (09:00)
[2017-08-02] MEDS: FOLIC ACID 1 MG TAB PO (09:00)
[2017-08-02] MEDS: RIFAXIMIN 550 MG TAB PO ×2 (09:00→20:36)
[2017-08-02] MEDS: NYSTATIN 30 GM POWDER BTL TOP ×2 (09:00→20:37)
[2017-08-02] MEDS: PROPRANOLOL 20 MG TAB PO ×2 (09:00→20:37)
[2017-08-02] MEDS: DEXTROSE 5%-0.45% NACL 1,000 ML IV ×2 (10:42→22:06)
[2017-08-02] MEDS: BARIUM SULF 2% 450 ML BTL (BERRY SMOOTHIE) PO (12:30)
[2017-08-02] MEDS ORDERED: VANCOMYCIN IV PER PHARMACY XX (12:30)
[2017-08-02] MEDS: VANCOMYCIN 1.5 GM in SOD CHLORIDE 0.9% 250 ML IVPB (14:09)
[2017-08-02 15:19] LABS: HIV 1&2 ANTIBODY NEGATIVE (NEGATIVE)
[2017-08-03] MEDS: LACTULOSE 30ML CUP PO ×6 (00:45→21:10)
[2017-08-03] MEDS: VANCOMYCIN 1 GM in NS 250 ML IVPB ×2 (01:35→13:19)
[2017-08-03 05:00] LABS: AADO2 Arterial 17.2 mmHg (7.0-24.0); Allen Test ACCEPTAB; Arterial Base Excess -2.7 mmol/L (-3.0-3); Arterial Blood Gas Oxygen Sat 96.3 mmHG (95.0-98.0); Arterial COHb 0.7 % (0.0-3.0); Arterial Fraction of Oxyhgb 95.3 % (93.0-99.0); Arterial HCO3 21.5 mmol/L (22.0-26.0); Arterial MetHb 0.3 % (0.0-1.5); Arterial Total Hemglobin 10.8 g/dl (12.0-18.0); Arterial pCO2 35.4 mmhg (35-45); MODE ROOM AIR; Site Right Radial
[2017-08-03] MEDS: PANTOPRAZOLE (EC) 40 MG TAB PO (05:15)
[2017-08-03] MEDS: FUROSEMIDE 40 MG INJ IV (05:16)
[2017-08-03 05:32] LABS: ADD MAN DIFF? NO
[2017-08-03 05:50] LABS: WHITE BLOOD COUNT 14.7 10^3/ul (4.8-10.8)
[2017-08-03 05:50] LABS: ABNORMAL IP MESSAGE 1; BASOPHIL # 0.2 10^3/ul (0.0-0.1); BASOPHILS % 1.1 % (0.0-2.0); EOSINOPHILS # 0.4 10^3/ul (0.0-0.5); HEMATOCRIT 28.2 % (37.0-47.0); HEMOGLOBIN 9.7 g/dl (12.0-16.0); LYMPHOCYTES # 2.1 10^3/ul (0.8-2.9); LYMPHOCYTES % 14.4 % (15.0-51.0); MEAN CORPUSCULAR HEMOGLOBIN 32.7 pg (29.0-33.0); MEAN CORPUSCULAR HGB CONC 34.4 g/dl (32.0-37.0); MEAN CORPUSCULAR VOLUME 94.9 fl (82.0-101.0); MEAN PLATELET VOLUME 11.4 fl (7.4-10.4); MONOCYTE # 1.6 10^3/ul (0.3-0.9); MONOCYTES % 10.8 % (0.0-11.0); NEUTROPHIL # 10.1 10^3/ul (1.6-7.5); NEUTROPHILS % 68.5 % (39.0-77.0); PLATELET COUNT 187 10^3/UL (140-415); RED BLOOD COUNT 2.97 10^6/ul (4.20-5.40); RED CELL DISTRIBUTION WIDTH 19.5 % (11.5-14.5)
[2017-08-03 06:10] LABS: INR 1.99; PROTIME 23.1 Sec (11.9-14.9); PT RATIO 1.8
[2017-08-03 06:16] LABS: PHOSPHORUS 3.6 mg/dl (2.5-4.9)
[2017-08-03 06:16] LABS: MAGNESIUM 1.9 mg/dl (1.7-2.5)
[2017-08-03 06:21] LABS: POSITIVE DIFF @See below
[2017-08-03] MEDS: LEVOTHYROXINE 50 MCG TAB PO (06:29)
[2017-08-03 06:36] LABS: ALANINE AMINOTRANSFERASE 36 IU/L (13-69); ALBUMIN 2.9 g/dl (3.3-4.9); ALBUMIN/GLOBULIN RATIO 0.58; ALKALINE PHOSPHATASE 170 IU/L (42-121); ANION GAP 13 (8-16); ASPARTATE AMINO TRANSFERASE 137 IU/L (15-46); BILIRUBIN,INDIRECT 3.9 mg/dl (0-1.1); BILIRUBIN,TOTAL 16.7 mg/dl (0.2-1.3); BLOOD UREA NITROGEN 24 mg/dl (7-20); CARBON DIOXIDE 23 mmol/L (21-31); CHLORIDE 104 mmol/L (97-110); CREATININE 1.21 mg/dl (0.44-1.00); GLUCOSE 138 mg/dl (70-220); POTASSIUM 4.2 mmol/L (3.5-5.1); SODIUM 136 mmol/L (135-144); TOTAL PROTEIN 7.9 g/dl (6.1-8.1)
[2017-08-03] MEDS: THIAMINE 100 MG TAB PO (09:01)
[2017-08-03] MEDS: SPIRONOLACTONE 50 MG TAB PO (09:02)
[2017-08-03] MEDS: FOLIC ACID 1 MG TAB PO (09:02)
[2017-08-03] MEDS: RIFAXIMIN 550 MG TAB PO ×2 (09:02→21:12)
[2017-08-03] MEDS: PROPRANOLOL 20 MG TAB PO ×2 (09:02→21:11)
[2017-08-03] MEDS: LISINOPRIL 5 MG TAB NGT (09:02)
[2017-08-03] MEDS: NYSTATIN 30 GM POWDER BTL TOP ×2 (09:03→21:12)
[2017-08-03] MEDS: MEROPENEM 1 GM/50ML(PMX) 50 ML IVPB ×2 (09:05→21:10)
[2017-08-03] MEDS: DEXTROSE 5% 1,000 ML IV ×2 (09:05→21:15)
[2017-08-03] MEDS: DEXTROSE 5%-0.45% NACL 1,000 ML IV (11:40)
[2017-08-03] MEDS: FUROSEMIDE 20 MG INJ IV (17:45)
[2017-08-03] MEDS: ALBUMIN HUMAN 25% 100 ML IV (17:45)
[2017-08-04] MEDS: LACTULOSE 30ML CUP PO ×6 (00:17→20:15)
[2017-08-04 01:52] LABS: VANCOMYCIN,TROUGH 42.2 ug/ml (10.0-20.0)
[2017-08-04] MEDS: LEVOTHYROXINE 50 MCG TAB PO (05:11)
[2017-08-04] MEDS: FUROSEMIDE 40 MG INJ IV (05:11)
[2017-08-04] MEDS: PANTOPRAZOLE (EC) 40 MG TAB PO (05:11)
[2017-08-04 05:46] LABS: ADD MAN DIFF? NO
[2017-08-04 05:54] LABS: WHITE BLOOD COUNT 11.5 10^3/ul (4.8-10.8)
[2017-08-04 05:54] LABS: BASOPHIL # 0.1 10^3/ul (0.0-0.1); BASOPHILS % 0.9 % (0.0-2.0); EOSINOPHILS # 0.3 10^3/ul (0.0-0.5); EOSINOPHILS % 2.7 % (0.0-7.0); HEMATOCRIT 27.2 % (37.0-47.0); HEMOGLOBIN 9.3 g/dl (12.0-16.0); LYMPHOCYTES # 1.6 10^3/ul (0.8-2.9); LYMPHOCYTES % 14.1 % (15.0-51.0); MEAN CORPUSCULAR HEMOGLOBIN 32.5 pg (29.0-33.0); MEAN CORPUSCULAR HGB CONC 34.2 g/dl (32.0-37.0); MEAN CORPUSCULAR VOLUME 95.1 fl (82.0-101.0); MEAN PLATELET VOLUME 11.9 fl (7.4-10.4); MONOCYTE # 1.2 10^3/ul (0.3-0.9); MONOCYTES % 10.7 % (0.0-11.0); NEUTROPHILS % 69.9 % (39.0-77.0); PLATELET COUNT 156 10^3/UL (140-415); RED BLOOD COUNT 2.86 10^6/ul (4.20-5.40); RED CELL DISTRIBUTION WIDTH 19.2 % (11.5-14.5)
[2017-08-04 06:14] LABS: MAGNESIUM 1.8 mg/dl (1.7-2.5)
[2017-08-04 06:14] LABS: PHOSPHORUS 2.8 mg/dl (2.5-4.9)
[2017-08-04 06:16] LABS: INR 1.89; PROTIME 22.1 Sec (11.9-14.9); PT RATIO 1.7
[2017-08-04 06:17] LABS: ALANINE AMINOTRANSFERASE 41 IU/L (13-69); ALBUMIN 3.1 g/dl (3.3-4.9); ALKALINE PHOSPHATASE 160 IU/L (42-121); ANION GAP 13 (8-16); ASPARTATE AMINO TRANSFERASE 132 IU/L (15-46); BILIRUBIN,TOTAL 16.7 mg/dl (0.2-1.3); BLOOD UREA NITROGEN 23 mg/dl (7-20); CARBON DIOXIDE 24 mmol/L (21-31); CHLORIDE 103 mmol/L (97-110); CREATININE 1.23 mg/dl (0.44-1.00); GLUCOSE 171 mg/dl (70-220); PARTIAL THROMBOPLASTIN TIME 50.5 Sec (25.0-35.0); SODIUM 136 mmol/L (135-144); TOTAL PROTEIN 7.5 g/dl (6.1-8.1)
[2017-08-04] MEDS: SPIRONOLACTONE 50 MG TAB PO (08:52)
[2017-08-04] MEDS: THIAMINE 100 MG TAB PO (08:53)
[2017-08-04] MEDS: PROPRANOLOL 20 MG TAB PO ×2 (08:53→20:20)
[2017-08-04] MEDS: RIFAXIMIN 550 MG TAB PO ×2 (08:53→20:15)
[2017-08-04] MEDS: LISINOPRIL 5 MG TAB NGT (08:54)
[2017-08-04] MEDS: FOLIC ACID 1 MG TAB PO (08:54)
[2017-08-04] MEDS: NYSTATIN 30 GM POWDER BTL TOP ×2 (08:54→20:17)
[2017-08-04] MEDS: MEROPENEM 1 GM/50ML(PMX) 50 ML IVPB ×2 (09:45→20:15)
[2017-08-05] MEDS: LACTULOSE 30ML CUP PO ×6 (00:30→20:54)
[2017-08-05] MEDS: PANTOPRAZOLE 40 MG INJ IV (05:44)
[2017-08-05] MEDS: FUROSEMIDE 40 MG INJ IV (05:46)
[2017-08-05] MEDS: LEVOTHYROXINE 50 MCG TAB PO (05:50)
[2017-08-05 05:55] LABS: ADD MAN DIFF? NO
[2017-08-05] MEDS ORDERED: VANCOMYCIN 1 GM in NS 250 ML IVPB (06:00)
[2017-08-05 06:26] LABS: WHITE BLOOD COUNT 12.4 10^3/ul (4.8-10.8)
[2017-08-05 06:26] LABS: BASOPHIL # 0.1 10^3/ul (0.0-0.1); EOSINOPHILS # 0.3 10^3/ul (0.0-0.5); EOSINOPHILS % 2.1 % (0.0-7.0); HEMATOCRIT 27.5 % (37.0-47.0); HEMOGLOBIN 9.5 g/dl (12.0-16.0); MEAN CORPUSCULAR HGB CONC 34.5 g/dl (32.0-37.0); MEAN CORPUSCULAR VOLUME 95.5 fl (82.0-101.0); MEAN PLATELET VOLUME 11.8 fl (7.4-10.4); MONOCYTE # 1.3 10^3/ul (0.3-0.9); MONOCYTES % 10.2 % (0.0-11.0); NEUTROPHIL # 8.5 10^3/ul (1.6-7.5); NEUTROPHILS % 68.7 % (39.0-77.0); PLATELET COUNT 184 10^3/UL (140-415); RED BLOOD COUNT 2.88 10^6/ul (4.20-5.40); RED CELL DISTRIBUTION WIDTH 19.1 % (11.5-14.5)
[2017-08-05 06:37] LABS: INR 1.91; PROTIME 22.3 Sec (11.9-14.9); PT RATIO 1.7
[2017-08-05 06:38] LABS: PARTIAL THROMBOPLASTIN TIME 46.7 Sec (25.0-35.0)
[2017-08-05 06:52] LABS: ALANINE AMINOTRANSFERASE 40 IU/L (13-69); ALBUMIN 3.2 g/dl (3.3-4.9); ALBUMIN/GLOBULIN RATIO 0.66; ALKALINE PHOSPHATASE 166 IU/L (42-121); ANION GAP 13 (8-16); ASPARTATE AMINO TRANSFERASE 138 IU/L (15-46); BILIRUBIN,INDIRECT 4.2 mg/dl (0-1.1); BILIRUBIN,TOTAL 16.5 mg/dl (0.2-1.3); BLOOD UREA NITROGEN 25 mg/dl (7-20); CALCIUM 10.8 mg/dl (8.4-10.2); CARBON DIOXIDE 24 mmol/L (21-31); CHLORIDE 108 mmol/L (97-110); CREATININE 1.45 mg/dl (0.44-1.00); GLUCOSE 146 mg/dl (70-220); POTASSIUM 3.7 mmol/L (3.5-5.1); SODIUM 141 mmol/L (135-144)
[2017-08-05] MEDS: THIAMINE 100 MG TAB PO (09:00)
[2017-08-05] MEDS: MEROPENEM 1 GM/50ML(PMX) 50 ML IVPB ×2 (09:33→20:54)
[2017-08-05] MEDS: SPIRONOLACTONE 50 MG TAB PO (09:34)
[2017-08-05] MEDS: LISINOPRIL 5 MG TAB NGT (09:34)
[2017-08-05] MEDS: FOLIC ACID 1 MG TAB PO (09:34)
[2017-08-05] MEDS: RIFAXIMIN 550 MG TAB PO ×2 (09:34→20:54)
[2017-08-05] MEDS: NYSTATIN 30 GM POWDER BTL TOP ×2 (09:35→20:55)
[2017-08-05 13:43] LABS: AMMONIA 56 umol/l (9-30)
[2017-08-05] MEDS: PROPRANOLOL 20 MG TAB PO (14:09)
[2017-08-06] MEDS: LACTULOSE 30ML CUP PO ×6 (01:30→22:01)
[2017-08-06] MEDS: FUROSEMIDE 40 MG TAB PO (05:50)
[2017-08-06] MEDS: PANTOPRAZOLE 40 MG INJ IV (05:51)
[2017-08-06] MEDS: VANCOMYCIN 1 GM in NS 250 ML IVPB (05:51)
[2017-08-06] MEDS: LEVOTHYROXINE 50 MCG TAB PO (06:40)
[2017-08-06] MEDS: RIFAXIMIN 550 MG TAB PO ×2 (09:22→22:01)
[2017-08-06] MEDS: SPIRONOLACTONE 50 MG TAB PO (09:22)
[2017-08-06] MEDS: LISINOPRIL 5 MG TAB NGT (09:22)
[2017-08-06] MEDS: FOLIC ACID 1 MG TAB PO (09:23)
[2017-08-06] MEDS: MEROPENEM 1 GM/50ML(PMX) 50 ML IVPB ×2 (09:24→21:52)
[2017-08-06] MEDS: NYSTATIN 30 GM POWDER BTL TOP ×2 (09:42→22:01)
[2017-08-06] MEDS: THIAMINE 100 MG TAB PO (09:42)
[2017-08-06] MEDS: HALOPERIDOL 5 MG INJ IM (21:52)
[2017-08-07] MEDS ORDERED: LORAZEPAM 2 MG INJ IM (02:30)
[2017-08-07] MEDS: DIPHENHYDRAMINE 50 MG INJ IV (02:55)
[2017-08-07] MEDS: LACTULOSE 30ML CUP PO ×6 (03:13→20:45)
[2017-08-07] MEDS: LORAZEPAM 2 MG INJ IV (03:29)
[2017-08-07] MEDS: FUROSEMIDE 40 MG TAB PO (06:00)
[2017-08-07 06:19] LABS: AMMONIA 46 umol/l (9-30)
[2017-08-07 06:33] LABS: CREATININE 1.93 mg/dl (0.44-1.00)
[2017-08-07 06:33] LABS: BLOOD UREA NITROGEN 40 mg/dl (7-20)
[2017-08-07] MEDS: PANTOPRAZOLE 40 MG INJ IV (06:44)
[2017-08-07] MEDS: LEVOTHYROXINE 50 MCG TAB PO (06:44)
[2017-08-07] MEDS: FOLIC ACID 1 MG TAB PO (08:38)
[2017-08-07] MEDS: RIFAXIMIN 550 MG TAB PO ×2 (08:38→20:45)
[2017-08-07] MEDS: THIAMINE 100 MG TAB PO (08:39)
[2017-08-07] MEDS: MEROPENEM 1 GM/50ML(PMX) 50 ML IVPB ×2 (08:43→20:45)
[2017-08-07] MEDS: LISINOPRIL 5 MG TAB NGT (08:44)
[2017-08-07] MEDS: SPIRONOLACTONE 50 MG TAB PO (08:45)
[2017-08-07] MEDS: NYSTATIN 30 GM POWDER BTL TOP ×2 (08:50→20:46)
[2017-08-08] MEDS: LACTULOSE 30ML CUP PO ×6 (02:20→20:41)
[2017-08-08] MEDS ORDERED: ALBUMIN HUMAN 25% 250 ML IV (05:00)
[2017-08-08 05:12] LABS: ADD MAN DIFF? NO
[2017-08-08 05:18] LABS: WHITE BLOOD COUNT 9.8 10^3/ul (4.8-10.8)
[2017-08-08 05:18] LABS: BASOPHIL # 0.1 10^3/ul (0.0-0.1); BASOPHILS % 0.8 % (0.0-2.0); EOSINOPHILS # 0.1 10^3/ul (0.0-0.5); EOSINOPHILS % 1.2 % (0.0-7.0); HEMATOCRIT 27.1 % (37.0-47.0); HEMOGLOBIN 8.9 g/dl (12.0-16.0); LYMPHOCYTES # 1.9 10^3/ul (0.8-2.9); LYMPHOCYTES % 19.2 % (15.0-51.0); MEAN CORPUSCULAR HGB CONC 32.8 g/dl (32.0-37.0); MEAN CORPUSCULAR VOLUME 100.4 fl (82.0-101.0); MEAN PLATELET VOLUME 11.7 fl (7.4-10.4); MONOCYTE # 1.2 10^3/ul (0.3-0.9); MONOCYTES % 12.1 % (0.0-11.0); NEUTROPHIL # 6.4 10^3/ul (1.6-7.5); NEUTROPHILS % 65.5 % (39.0-77.0); PLATELET COUNT 168 10^3/UL (140-415); RED CELL DISTRIBUTION WIDTH 20.7 % (11.5-14.5)
[2017-08-08 05:36] LABS: VANCOMYCIN,RANDOM 16.4 ug/ml
[2017-08-08 05:58] LABS: ANION GAP 16 (8-16); BLOOD UREA NITROGEN 50 mg/dl (7-20); CALCIUM 11.3 mg/dl (8.4-10.2); CARBON DIOXIDE 24 mmol/L (21-31); CHLORIDE 128 mmol/L (97-110); CREATININE 2.25 mg/dl (0.44-1.00); GLUCOSE 191 mg/dl (70-220); POTASSIUM 4.2 mmol/L (3.5-5.1)
[2017-08-08] MEDS: FUROSEMIDE 40 MG TAB PO (06:05)
[2017-08-08] MEDS: PANTOPRAZOLE 40 MG INJ IV (06:05)
[2017-08-08] MEDS: ALBUMIN HUMAN 25% 100 ML IV ×2 (06:08→21:23)
[2017-08-08] MEDS: LEVOTHYROXINE 50 MCG TAB PO (06:14)
[2017-08-08] MEDS ORDERED: VITAMIN A & D 5 GM OINT PACKET TOP (06:25)
[2017-08-08 06:27] LABS: SODIUM 164 mmol/L (135-144)
[2017-08-08] MEDS: DEXTROSE 5% WATER 500 ML BAG IV (06:55)
[2017-08-08] MEDS: FOLIC ACID 1 MG TAB PO (08:23)
[2017-08-08] MEDS: MEROPENEM 1 GM/50ML(PMX) 50 ML IVPB (08:23)
[2017-08-08] MEDS: THIAMINE 100 MG TAB PO (08:23)
[2017-08-08] MEDS: RIFAXIMIN 550 MG TAB PO ×2 (08:23→20:42)
[2017-08-08] MEDS: NYSTATIN 30 GM POWDER BTL TOP ×2 (08:24→21:24)
[2017-08-08] MEDS: LISINOPRIL 5 MG TAB NGT (08:25)
[2017-08-08] MEDS: SPIRONOLACTONE 50 MG TAB PO (08:25)
[2017-08-08 08:59] LABS: ANION GAP 17 (8-16); BLOOD UREA NITROGEN 48 mg/dl (7-20); CALCIUM 11.2 mg/dl (8.4-10.2); CARBON DIOXIDE 23 mmol/L (21-31); CHLORIDE 127 mmol/L (97-110); CREATININE 2.33 mg/dl (0.44-1.00); GLUCOSE 241 mg/dl (70-220)
[2017-08-08 09:07] LABS: SODIUM 163 mmol/L (135-144)
[2017-08-08] MEDS: DEXTROSE 5% 1,000 ML IV ×2 (09:22→18:52)
[2017-08-08 11:21] LABS: SODIUM 164 mmol/L (135-144)
[2017-08-08 11:39] LABS: AMMONIA 52 umol/l (9-30)
[2017-08-08 15:35] LABS: SODIUM 162 mmol/L (135-144)
[2017-08-08] MEDS: ERTAPENEM SODIUM 1 GM in SOD CHLORIDE 0.9% 100 ML IVPB (15:53)
[2017-08-08 18:50] LABS: SODIUM 159 mmol/L (135-144)
[2017-08-08] MEDS: VANCOMYCIN 1 GM in DEXTROSE 5% 250 ML IVPB (18:53)
[2017-08-08 22:31] LABS: SODIUM 159 mmol/L (135-144)
[2017-08-09] MEDS: LACTULOSE 30ML CUP PO ×6 (01:20→20:40)
[2017-08-09] MEDS: ALBUMIN HUMAN 25% 100 ML IV ×2 (02:44→08:38)
[2017-08-09] MEDS: DEXTROSE 5% 1,000 ML IV ×2 (02:45→13:13)
[2017-08-09 03:20] LABS: SODIUM 161 mmol/L (135-144)
[2017-08-09 06:23] LABS: ADD MAN DIFF? NO
[2017-08-09 06:39] LABS: WHITE BLOOD COUNT 7.3 10^3/ul (4.8-10.8)
[2017-08-09 06:39] LABS: BASOPHIL # 0.1 10^3/ul (0.0-0.1); BASOPHILS % 0.8 % (0.0-2.0); EOSINOPHILS # 0.2 10^3/ul (0.0-0.5); EOSINOPHILS % 2.2 % (0.0-7.0); HEMATOCRIT 24.9 % (37.0-47.0); HEMOGLOBIN 7.9 g/dl (12.0-16.0); LYMPHOCYTES # 1.7 10^3/ul (0.8-2.9); MEAN CORPUSCULAR HEMOGLOBIN 32.6 pg (29.0-33.0); MEAN CORPUSCULAR HGB CONC 31.7 g/dl (32.0-37.0); MEAN CORPUSCULAR VOLUME 102.9 fl (82.0-101.0); MEAN PLATELET VOLUME 11.5 fl (7.4-10.4); MONOCYTE # 0.9 10^3/ul (0.3-0.9); MONOCYTES % 11.8 % (0.0-11.0); NEUTROPHIL # 4.4 10^3/ul (1.6-7.5); NEUTROPHILS % 60.2 % (39.0-77.0); PLATELET COUNT 149 10^3/UL (140-415); RED BLOOD COUNT 2.42 10^6/ul (4.20-5.40); RED CELL DISTRIBUTION WIDTH 20.7 % (11.5-14.5)
[2017-08-09 06:58] LABS: ANION GAP 19 (8-16); BLOOD UREA NITROGEN 48 mg/dl (7-20); CALCIUM 11.6 mg/dl (8.4-10.2); CARBON DIOXIDE 23 mmol/L (21-31); CHLORIDE 124 mmol/L (97-110); CREATININE 2.27 mg/dl (0.44-1.00); GLUCOSE 149 mg/dl (70-220); POTASSIUM 3.9 mmol/L (3.5-5.1)
[2017-08-09] MEDS: FUROSEMIDE 40 MG TAB PO (06:58)
[2017-08-09] MEDS: PANTOPRAZOLE 40 MG INJ IV (06:58)
[2017-08-09] MEDS: LEVOTHYROXINE 50 MCG TAB PO (06:58)
[2017-08-09 07:19] LABS: SODIUM 162 mmol/L (135-144)
[2017-08-09 07:21] LABS: SODIUM 163 mmol/L (135-144)
[2017-08-09] MEDS: THIAMINE 100 MG TAB PO (08:38)
[2017-08-09] MEDS: RIFAXIMIN 550 MG TAB PO ×2 (08:38→20:40)
[2017-08-09] MEDS: SPIRONOLACTONE 50 MG TAB PO (08:38)
[2017-08-09] MEDS: FOLIC ACID 1 MG TAB PO (08:38)
[2017-08-09] MEDS: NYSTATIN 30 GM POWDER BTL TOP ×2 (08:39→20:41)
[2017-08-09] MEDS: LISINOPRIL 5 MG TAB NGT (08:39)
[2017-08-09 10:59] LABS: SODIUM 160 mmol/L (135-144)
[2017-08-09 14:34] LABS: SODIUM 160 mmol/L (135-144)
[2017-08-09] MEDS: ERTAPENEM SODIUM 1 GM in SOD CHLORIDE 0.9% 100 ML IVPB (17:19)
[2017-08-09 18:24] LABS: SODIUM 157 mmol/L (135-144)
[2017-08-09 23:03] LABS: SODIUM 155 mmol/L (135-144)
[2017-08-10] MEDS: LACTULOSE 30ML CUP PO ×6 (01:52→21:25)
[2017-08-10] MEDS: DEXTROSE 5% 1,000 ML IV ×3 (01:53→21:26)
[2017-08-10] MEDS: LORAZEPAM 2 MG INJ IV (01:53)
[2017-08-10 02:44] LABS: SODIUM 156 mmol/L (135-144)
[2017-08-10] MEDS: PANTOPRAZOLE 40 MG INJ IV (05:22)
[2017-08-10] MEDS: FUROSEMIDE 40 MG TAB PO (07:02)
[2017-08-10] MEDS: LEVOTHYROXINE 50 MCG TAB PO (07:37)
[2017-08-10] MEDS: LISINOPRIL 5 MG TAB NGT (09:00)
[2017-08-10] MEDS: THIAMINE 100 MG TAB PO (09:00)
[2017-08-10] MEDS: SPIRONOLACTONE 50 MG TAB PO (09:00)
[2017-08-10] MEDS: RIFAXIMIN 550 MG TAB PO ×2 (09:00→21:26)
[2017-08-10] MEDS: NYSTATIN 30 GM POWDER BTL TOP ×2 (09:00→21:27)
[2017-08-10] MEDS: FOLIC ACID 1 MG TAB PO (09:00)
[2017-08-10 09:29] LABS: ADD MAN DIFF? NO
[2017-08-10 09:48] LABS: BASOPHILS % 0.6 % (0.0-2.0); EOSINOPHILS # 0.2 10^3/ul (0.0-0.5); EOSINOPHILS % 2.7 % (0.0-7.0); LYMPHOCYTES # 1.6 10^3/ul (0.8-2.9); MEAN CORPUSCULAR HEMOGLOBIN 32.3 pg (29.0-33.0); MEAN CORPUSCULAR HGB CONC 31.8 g/dl (32.0-37.0); MEAN CORPUSCULAR VOLUME 101.4 fl (82.0-101.0); MEAN PLATELET VOLUME 11.6 fl (7.4-10.4); MONOCYTE # 0.6 10^3/ul (0.3-0.9); MONOCYTES % 8.4 % (0.0-11.0); NEUTROPHIL # 4.5 10^3/ul (1.6-7.5); NEUTROPHILS % 64.4 % (39.0-77.0); RED BLOOD COUNT 2.17 10^6/ul (4.20-5.40); RED CELL DISTRIBUTION WIDTH 20.1 % (11.5-14.5)
[2017-08-10 09:49] LABS: POSITIVE DIFF @See below
[2017-08-10 09:57] LABS: PHOSPHORUS 3.8 mg/dl (2.5-4.9)
[2017-08-10 09:57] LABS: MAGNESIUM 2.4 mg/dl (1.7-2.5)
[2017-08-10 10:00] LABS: ALANINE AMINOTRANSFERASE 41 IU/L (13-69); ALBUMIN 3.3 g/dl (3.3-4.9); ALBUMIN/GLOBULIN RATIO 0.84; ALKALINE PHOSPHATASE 103 IU/L (42-121); ANION GAP 19 (8-16); ASPARTATE AMINO TRANSFERASE 92 IU/L (15-46); BILIRUBIN,INDIRECT 2.7 mg/dl (0-1.1); BILIRUBIN,TOTAL 7.1 mg/dl (0.2-1.3); BLOOD UREA NITROGEN 38 mg/dl (7-20); CALCIUM 11.3 mg/dl (8.4-10.2); CARBON DIOXIDE 21 mmol/L (21-31); CHLORIDE 119 mmol/L (97-110); CREATININE 1.88 mg/dl (0.44-1.00); GLUCOSE 186 mg/dl (70-220); POTASSIUM 3.6 mmol/L (3.5-5.1); SODIUM 155 mmol/L (135-144); TOTAL PROTEIN 7.2 g/dl (6.1-8.1)
[2017-08-10 10:23] LABS: AMMONIA 45 umol/l (9-30)
[2017-08-10 10:28] LABS: PLATELET COUNT 117 10^3/UL (140-415)
[2017-08-10 11:30] LABS: HEMATOCRIT 22.3 % (37.0-47.0); HEMOGLOBIN 7.2 g/dl (12.0-16.0)
[2017-08-10] MEDS: ERTAPENEM SODIUM 1 GM in SOD CHLORIDE 0.9% 100 ML IVPB (17:09)
[2017-08-11] MEDS: LACTULOSE 30ML CUP PO ×6 (02:33→20:58)
[2017-08-11] MEDS: DEXTROSE 5% 1,000 ML IV ×3 (05:00→22:19)
[2017-08-11] MEDS: FUROSEMIDE 40 MG TAB PO (06:00)
[2017-08-11] MEDS: PANTOPRAZOLE 40 MG INJ IV (06:09)
[2017-08-11] MEDS: LEVOTHYROXINE 50 MCG TAB PO (07:00)
[2017-08-11 09:07] LABS: HEMATOCRIT 21.7 % (37.0-47.0); HEMOGLOBIN 7.1 g/dl (12.0-16.0); MEAN CORPUSCULAR HEMOGLOBIN 33.2 pg (29.0-33.0); MEAN CORPUSCULAR HGB CONC 32.7 g/dl (32.0-37.0); MEAN CORPUSCULAR VOLUME 101.4 fl (82.0-101.0); MEAN PLATELET VOLUME 11.2 fl (7.4-10.4); PLATELET COUNT 103 10^3/UL (140-415); RED BLOOD COUNT 2.14 10^6/ul (4.20-5.40); RED CELL DISTRIBUTION WIDTH 19.3 % (11.5-14.5)
[2017-08-11 09:22] LABS: ADD MAN DIFF? YES; POSITIVE DIFF @See below
[2017-08-11 09:27] LABS: PROTIME 22.2 Sec (11.9-14.9); PT RATIO 1.7
[2017-08-11 09:28] LABS: PARTIAL THROMBOPLASTIN TIME 46.8 Sec (25.0-35.0)
[2017-08-11 09:34] LABS: AMMONIA 49 umol/l (9-30)
[2017-08-11 09:34] LABS: ALANINE AMINOTRANSFERASE 32 IU/L (13-69); ALBUMIN 2.9 g/dl (3.3-4.9); ALBUMIN/GLOBULIN RATIO 0.78; ALKALINE PHOSPHATASE 109 IU/L (42-121); ANION GAP 14 (8-16); ASPARTATE AMINO TRANSFERASE 82 IU/L (15-46); BILIRUBIN,INDIRECT 2.5 mg/dl (0-1.1); BILIRUBIN,TOTAL 6.6 mg/dl (0.2-1.3); BLOOD UREA NITROGEN 37 mg/dl (7-20); CALCIUM 11.1 mg/dl (8.4-10.2); CARBON DIOXIDE 21 mmol/L (21-31); CHLORIDE 116 mmol/L (97-110); CREATININE 1.89 mg/dl (0.44-1.00); GLUCOSE 173 mg/dl (70-220); POTASSIUM 3.8 mmol/L (3.5-5.1); SODIUM 147 mmol/L (135-144); TOTAL PROTEIN 6.6 g/dl (6.1-8.1)
[2017-08-11] MEDS: NYSTATIN 30 GM POWDER BTL TOP ×2 (09:56→20:59)
[2017-08-11] MEDS: RIFAXIMIN 550 MG TAB PO ×2 (09:56→20:58)
[2017-08-11] MEDS: FOLIC ACID 1 MG TAB PO (09:56)
[2017-08-11] MEDS: SPIRONOLACTONE 50 MG TAB PO (09:56)
[2017-08-11] MEDS: THIAMINE 100 MG TAB PO (09:56)
[2017-08-11 10:17] LABS: ANISOCYTOSIS 1+ (0-0); BAND NEUTROPHILS #M 0.1 10^3/ul (0.0-0.6); BAND NEUTROPHILS % (M) 2 % (0-4); EOSINOPHILS % (M) 7 % (0-7); LYMPHOCYTES #M 1.1 10^3/ul (0.8-2.9); LYMPHOCYTES % (M) 17 % (15-51); MONOCYTE #M 0.4 10^3/ul (0.3-0.9); MONOCYTES % (M) 6 % (0-11); PLATELET ESTIMATE DECREASED; POIKILOCYTOSIS 2+ (0-0); POLYCHROMASIA 3+ (0-0); SCHISTOCYTES 1+ (0-0); SEG NEUT #M 4.8 10^3/ul (1.7-7.5); SEGMENTED NEUTROPHILS (M) % 68 % (39-77); SMUDGE%M 2 % (0-0)
[2017-08-11 10:31] LABS: MAGNESIUM 2.3 mg/dl (1.7-2.5)
[2017-08-11 10:31] LABS: PHOSPHORUS 3.5 mg/dl (2.5-4.9)
[2017-08-12] MEDS: DEXTROSE 5% 1,000 ML IV ×3 (01:00→21:40)
[2017-08-12] MEDS: LACTULOSE 30ML CUP PO ×6 (01:55→21:39)
[2017-08-12] MEDS: FUROSEMIDE 40 MG TAB PO (05:37)
[2017-08-12] MEDS: PANTOPRAZOLE 40 MG INJ IV (05:42)
[2017-08-12] MEDS: LEVOTHYROXINE 50 MCG TAB PO (07:00)
[2017-08-12 08:49] LABS: ADD MAN DIFF? NO
[2017-08-12 08:56] LABS: ABNORMAL IP MESSAGE 1; BASOPHILS % 0.3 % (0.0-2.0); EOSINOPHILS # 0.3 10^3/ul (0.0-0.5); EOSINOPHILS % 4.3 % (0.0-7.0); HEMATOCRIT 21.4 % (37.0-47.0); LYMPHOCYTES # 1.5 10^3/ul (0.8-2.9); MEAN CORPUSCULAR HEMOGLOBIN 32.6 pg (29.0-33.0); MEAN CORPUSCULAR HGB CONC 32.7 g/dl (32.0-37.0); MEAN CORPUSCULAR VOLUME 99.5 fl (82.0-101.0); MEAN PLATELET VOLUME 11.8 fl (7.4-10.4); MONOCYTE # 0.5 10^3/ul (0.3-0.9); NEUTROPHIL # 4.6 10^3/ul (1.6-7.5); NEUTROPHILS % 65.8 % (39.0-77.0); PLATELET COUNT 93 10^3/UL (140-415); RED BLOOD COUNT 2.15 10^6/ul (4.20-5.40); RED CELL DISTRIBUTION WIDTH 18.8 % (11.5-14.5)
[2017-08-12 09:02] LABS: POSITIVE DIFF @See below
[2017-08-12] MEDS: RIFAXIMIN 550 MG TAB PO ×2 (09:04→21:39)
[2017-08-12] MEDS: THIAMINE 100 MG TAB PO (09:04)
[2017-08-12] MEDS: SPIRONOLACTONE 50 MG TAB PO (09:04)
[2017-08-12] MEDS: FOLIC ACID 1 MG TAB PO (09:04)
[2017-08-12] MEDS: NYSTATIN 30 GM POWDER BTL TOP ×2 (09:04→21:41)
[2017-08-12 09:25] LABS: PHOSPHORUS 3.2 mg/dl (2.5-4.9)
[2017-08-12 09:25] LABS: MAGNESIUM 2.2 mg/dl (1.7-2.5)
[2017-08-12 09:26] LABS: ALANINE AMINOTRANSFERASE 33 IU/L (13-69); ALBUMIN 2.7 g/dl (3.3-4.9); ALBUMIN/GLOBULIN RATIO 0.77; ALKALINE PHOSPHATASE 116 IU/L (42-121); ANION GAP 15 (8-16); ASPARTATE AMINO TRANSFERASE 76 IU/L (15-46); BILIRUBIN,INDIRECT 2.4 mg/dl (0-1.1); BILIRUBIN,TOTAL 6.2 mg/dl (0.2-1.3); BLOOD UREA NITROGEN 37 mg/dl (7-20); CALCIUM 10.4 mg/dl (8.4-10.2); CARBON DIOXIDE 20 mmol/L (21-31); CHLORIDE 110 mmol/L (97-110); CREATININE 1.82 mg/dl (0.44-1.00); GLUCOSE 181 mg/dl (70-220); POTASSIUM 3.6 mmol/L (3.5-5.1); SODIUM 141 mmol/L (135-144); TOTAL PROTEIN 6.2 g/dl (6.1-8.1)
[2017-08-12 09:37] LABS: AMMONIA 56 umol/l (9-30)
[2017-08-13] MEDS: LACTULOSE 30ML CUP PO ×6 (01:27→20:14)
[2017-08-13] MEDS: PANTOPRAZOLE 40 MG INJ IV (05:31)
[2017-08-13] MEDS: FUROSEMIDE 40 MG TAB PO (05:32)
[2017-08-13 07:42] LABS: ABNORMAL IP MESSAGE 1; MEAN CORPUSCULAR HEMOGLOBIN 32.8 pg (29.0-33.0); MEAN CORPUSCULAR HGB CONC 33.5 g/dl (32.0-37.0); MEAN PLATELET VOLUME 12.4 fl (7.4-10.4); PLATELET COUNT 84 10^3/UL (140-415); RED BLOOD COUNT 2.04 10^6/ul (4.20-5.40); RED CELL DISTRIBUTION WIDTH 18.3 % (11.5-14.5)
[2017-08-13 07:42] LABS: WHITE BLOOD COUNT 6.1 10^3/ul (4.8-10.8)
[2017-08-13 07:47] LABS: POSITIVE DIFF @See below
[2017-08-13 07:49] LABS: ADD MAN DIFF? YES; HEMOGLOBIN 6.7 g/dl (12.0-16.0)
[2017-08-13 08:00] LABS: ALANINE AMINOTRANSFERASE 34 IU/L (13-69); ALBUMIN 2.6 g/dl (3.3-4.9); ALBUMIN/GLOBULIN RATIO 0.76; ALKALINE PHOSPHATASE 118 IU/L (42-121); ANION GAP 14 (8-16); ASPARTATE AMINO TRANSFERASE 67 IU/L (15-46); BILIRUBIN,INDIRECT 2.5 mg/dl (0-1.1); BILIRUBIN,TOTAL 6.8 mg/dl (0.2-1.3); BLOOD UREA NITROGEN 32 mg/dl (7-20); CALCIUM 10.2 mg/dl (8.4-10.2); CARBON DIOXIDE 19 mmol/L (21-31); CHLORIDE 109 mmol/L (97-110); CREATININE 1.49 mg/dl (0.44-1.00); GLUCOSE 172 mg/dl (70-220); POTASSIUM 3.7 mmol/L (3.5-5.1); SODIUM 138 mmol/L (135-144)
[2017-08-13] MEDS: NYSTATIN 30 GM POWDER BTL TOP ×2 (09:00→20:15)
[2017-08-13] MEDS: RIFAXIMIN 550 MG TAB PO ×2 (09:24→20:14)
[2017-08-13] MEDS: FOLIC ACID 1 MG TAB PO (09:24)
[2017-08-13] MEDS: THIAMINE 100 MG TAB PO (09:24)
[2017-08-13] MEDS: SPIRONOLACTONE 50 MG TAB PO (09:29)
[2017-08-13] MEDS: LEVOTHYROXINE 50 MCG TAB PO (09:29)
[2017-08-13 09:49] LABS: ANISOCYTOSIS 1+ (0-0); BAND NEUTROPHILS #M 0.1 10^3/ul (0.0-0.6); BAND NEUTROPHILS % (M) 3 % (0-4); BURR CELLS 2+ (0-0); EOSINOPHILS % (M) 3 % (0-7); LYMPHOCYTES % (M) 17 % (15-51); MONOCYTE #M 0.1 10^3/ul (0.3-0.9); MONOCYTES % (M) 3 % (0-11); PLATELET ESTIMATE DECREASED; POIKILOCYTOSIS 2+ (0-0); SEG NEUT #M 4.5 10^3/ul (1.7-7.5); SEGMENTED NEUTROPHILS (M) % 73 % (39-77); SMUDGE%M 5 % (0-0)
[2017-08-13] MEDS: DEXTROSE 5% 1,000 ML IV (10:50)
[2017-08-13 11:00] LABS: IMMEDIATE SPIN CROSSMATCH 1 1
[2017-08-13 17:02] LABS: WEST NILE VIRUS ANTIBODY (IGG) <1.30 index; WEST NILE VIRUS ANTIBODY (IGM) <0.90 index
[2017-08-14] MEDS: LACTULOSE 30ML CUP PO ×6 (00:51→20:47)
[2017-08-14] MEDS: HALOPERIDOL 5 MG INJ IV (02:02)
[2017-08-14] MEDS: LORAZEPAM 2 MG INJ IV (02:02)
[2017-08-14] MEDS: PANTOPRAZOLE 40 MG INJ IV (06:12)
[2017-08-14] MEDS: FUROSEMIDE 40 MG TAB PO (06:17)
[2017-08-14 07:32] LABS: ADD MAN DIFF? NO
[2017-08-14 07:39] LABS: BASOPHILS % 0.3 % (0.0-2.0); EOSINOPHILS # 0.3 10^3/ul (0.0-0.5); EOSINOPHILS % 3.6 % (0.0-7.0); HEMATOCRIT 25.2 % (37.0-47.0); LYMPHOCYTES # 1.2 10^3/ul (0.8-2.9); LYMPHOCYTES % 15.7 % (15.0-51.0); MEAN CORPUSCULAR HEMOGLOBIN 32.7 pg (29.0-33.0); MEAN CORPUSCULAR HGB CONC 33.7 g/dl (32.0-37.0); MEAN CORPUSCULAR VOLUME 96.9 fl (82.0-101.0); MEAN PLATELET VOLUME 12.7 fl (7.4-10.4); MONOCYTE # 0.6 10^3/ul (0.3-0.9); MONOCYTES % 8.2 % (0.0-11.0); NEUTROPHIL # 5.4 10^3/ul (1.6-7.5); NEUTROPHILS % 71.7 % (39.0-77.0); PLATELET COUNT 104 10^3/UL (140-415); RED CELL DISTRIBUTION WIDTH 19.9 % (11.5-14.5)
[2017-08-14 07:39] LABS: WHITE BLOOD COUNT 7.5 10^3/ul (4.8-10.8)
[2017-08-14 07:48] LABS: HEMOGLOBIN 8.5 g/dl (12.0-16.0)
[2017-08-14 07:57] LABS: MAGNESIUM 2.2 mg/dl (1.7-2.5)
[2017-08-14 07:57] LABS: PHOSPHORUS 3.4 mg/dl (2.5-4.9)
[2017-08-14 08:09] LABS: ALANINE AMINOTRANSFERASE 35 IU/L (13-69); ALBUMIN 2.9 g/dl (3.3-4.9); ALKALINE PHOSPHATASE 126 IU/L (42-121); ANION GAP 14 (8-16); ASPARTATE AMINO TRANSFERASE 77 IU/L (15-46); BILIRUBIN,INDIRECT 2.9 mg/dl (0-1.1); BILIRUBIN,TOTAL 9.4 mg/dl (0.2-1.3); BLOOD UREA NITROGEN 27 mg/dl (7-20); CALCIUM 11.6 mg/dl (8.4-10.2); CARBON DIOXIDE 21 mmol/L (21-31); CHLORIDE 117 mmol/L (97-110); CREATININE 1.44 mg/dl (0.44-1.00); GLUCOSE 165 mg/dl (70-220); POTASSIUM 4.1 mmol/L (3.5-5.1); SODIUM 148 mmol/L (135-144)
[2017-08-14 08:28] LABS: AMMONIA 61 umol/l (9-30)
[2017-08-14] MEDS: THIAMINE 100 MG TAB PO (09:07)
[2017-08-14] MEDS: SPIRONOLACTONE 50 MG TAB PO (09:08)
[2017-08-14] MEDS: RIFAXIMIN 550 MG TAB PO ×2 (09:09→20:47)
[2017-08-14] MEDS: FOLIC ACID 1 MG TAB PO (09:10)
[2017-08-14] MEDS: NYSTATIN 30 GM POWDER BTL TOP ×2 (09:11→20:48)
[2017-08-14] MEDS: LEVOTHYROXINE 50 MCG TAB PO (10:10)
[2017-08-14] MEDS: HALOPERIDOL 5 MG INJ IM (13:54)
[2017-08-15] MEDS: LORAZEPAM 2 MG INJ IV
[2017-08-15] MEDS: LACTULOSE 30ML CUP PO ×6 (02:29→21:38)
[2017-08-15] MEDS: FUROSEMIDE 40 MG TAB PO (05:45)
[2017-08-15] MEDS: PANTOPRAZOLE 40 MG INJ IV (05:53)
[2017-08-15] MEDS: LEVOTHYROXINE 50 MCG TAB PO (06:51)
[2017-08-15] MEDS: RIFAXIMIN 550 MG TAB PO ×2 (09:07→21:38)
[2017-08-15] MEDS: NYSTATIN 30 GM POWDER BTL TOP ×2 (09:09→21:39)
[2017-08-15] MEDS: FOLIC ACID 1 MG TAB PO (09:09)
[2017-08-15] MEDS: THIAMINE 100 MG TAB PO (09:09)
[2017-08-15] MEDS: SPIRONOLACTONE 50 MG TAB PO (09:09)
[2017-08-15 09:10] LABS: ADD MAN DIFF? NO
[2017-08-15 09:25] LABS: WHITE BLOOD COUNT 8.8 10^3/ul (4.8-10.8)
[2017-08-15 09:25] LABS: BASOPHILS % 0.5 % (0.0-2.0); EOSINOPHILS # 0.3 10^3/ul (0.0-0.5); EOSINOPHILS % 3.2 % (0.0-7.0); HEMATOCRIT 27.7 % (37.0-47.0); HEMOGLOBIN 9.2 g/dl (12.0-16.0); LYMPHOCYTES # 1.5 10^3/ul (0.8-2.9); LYMPHOCYTES % 17.4 % (15.0-51.0); MEAN CORPUSCULAR HEMOGLOBIN 33.1 pg (29.0-33.0); MEAN CORPUSCULAR HGB CONC 33.2 g/dl (32.0-37.0); MEAN CORPUSCULAR VOLUME 99.6 fl (82.0-101.0); MEAN PLATELET VOLUME 11.6 fl (7.4-10.4); MONOCYTE # 0.7 10^3/ul (0.3-0.9); NEUTROPHIL # 6.2 10^3/ul (1.6-7.5); NEUTROPHILS % 70.6 % (39.0-77.0); PLATELET COUNT 121 10^3/UL (140-415); RED BLOOD COUNT 2.78 10^6/ul (4.20-5.40); RED CELL DISTRIBUTION WIDTH 20.2 % (11.5-14.5)
[2017-08-15 09:34] LABS: INR 1.71; PROTIME 20.4 Sec (11.9-14.9); PT RATIO 1.6
[2017-08-15 09:35] LABS: PARTIAL THROMBOPLASTIN TIME 41.9 Sec (25.0-35.0)
[2017-08-15 09:37] LABS: AMMONIA 51 umol/l (9-30)
[2017-08-15 09:40] LABS: ALANINE AMINOTRANSFERASE 35 IU/L (13-69); ALBUMIN 3.3 g/dl (3.3-4.9); ALBUMIN/GLOBULIN RATIO 0.73; ALKALINE PHOSPHATASE 127 IU/L (42-121); ANION GAP 18 (8-16); ASPARTATE AMINO TRANSFERASE 94 IU/L (15-46); BILIRUBIN,INDIRECT 3.1 mg/dl (0-1.1); BILIRUBIN,TOTAL 9.2 mg/dl (0.2-1.3); BLOOD UREA NITROGEN 28 mg/dl (7-20); CALCIUM 12.3 mg/dl (8.4-10.2); CARBON DIOXIDE 20 mmol/L (21-31); CHLORIDE 125 mmol/L (97-110); CREATININE 1.61 mg/dl (0.44-1.00); GLUCOSE 198 mg/dl (70-220); POTASSIUM 4.2 mmol/L (3.5-5.1); SODIUM 159 mmol/L (135-144); TOTAL PROTEIN 7.8 g/dl (6.1-8.1)
[2017-08-15 11:12] LABS: MAGNESIUM 2.1 mg/dl (1.7-2.5)
[2017-08-15] MEDS: DEXTROSE 5% 1,000 ML IV (21:55)
[2017-08-16] MEDS: LACTULOSE 30ML CUP PO ×6 (01:58→21:35)
[2017-08-16] MEDS: PANTOPRAZOLE 40 MG INJ IV (06:40)
[2017-08-16] MEDS: FUROSEMIDE 40 MG TAB PO (06:40)
[2017-08-16] MEDS: LEVOTHYROXINE 50 MCG TAB PO (06:40)
[2017-08-16] MEDS: NYSTATIN 30 GM POWDER BTL TOP ×2 (09:00→21:38)
[2017-08-16 09:03] LABS: ADD MAN DIFF? NO
[2017-08-16 09:07] LABS: BASOPHILS % 0.3 % (0.0-2.0); EOSINOPHILS # 0.2 10^3/ul (0.0-0.5); EOSINOPHILS % 2.4 % (0.0-7.0); HEMATOCRIT 26.2 % (37.0-47.0); HEMOGLOBIN 8.8 g/dl (12.0-16.0); LYMPHOCYTES # 1.7 10^3/ul (0.8-2.9); LYMPHOCYTES % 17.2 % (15.0-51.0); MEAN CORPUSCULAR HEMOGLOBIN 33.5 pg (29.0-33.0); MEAN CORPUSCULAR HGB CONC 33.6 g/dl (32.0-37.0); MEAN CORPUSCULAR VOLUME 99.6 fl (82.0-101.0); MEAN PLATELET VOLUME 12.4 fl (7.4-10.4); MONOCYTE # 0.8 10^3/ul (0.3-0.9); MONOCYTES % 8.5 % (0.0-11.0); NEUTROPHIL # 6.9 10^3/ul (1.6-7.5); NEUTROPHILS % 71.3 % (39.0-77.0); PLATELET COUNT 139 10^3/UL (140-415); RED BLOOD COUNT 2.63 10^6/ul (4.20-5.40); RED CELL DISTRIBUTION WIDTH 20.3 % (11.5-14.5)
[2017-08-16 09:07] LABS: WHITE BLOOD COUNT 9.7 10^3/ul (4.8-10.8)
[2017-08-16 09:35] LABS: AMMONIA 50 umol/l (9-30)
[2017-08-16 09:41] LABS: ALANINE AMINOTRANSFERASE 36 IU/L (13-69); ALBUMIN 3.2 g/dl (3.3-4.9); ALBUMIN/GLOBULIN RATIO 0.72; ALKALINE PHOSPHATASE 124 IU/L (42-121); ANION GAP 18 (8-16); ASPARTATE AMINO TRANSFERASE 99 IU/L (15-46); BILIRUBIN,TOTAL 8.1 mg/dl (0.2-1.3); BLOOD UREA NITROGEN 31 mg/dl (7-20); CALCIUM 12.6 mg/dl (8.4-10.2); CARBON DIOXIDE 21 mmol/L (21-31); CHLORIDE 127 mmol/L (97-110); CREATININE 1.85 mg/dl (0.44-1.00); GLUCOSE 209 mg/dl (70-220); POTASSIUM 4.4 mmol/L (3.5-5.1); TOTAL PROTEIN 7.6 g/dl (6.1-8.1)
[2017-08-16 09:49] LABS: SODIUM 162 mmol/L (135-144)
[2017-08-16] MEDS: SPIRONOLACTONE 50 MG TAB PO (13:32)
[2017-08-16] MEDS: THIAMINE 100 MG TAB PO (13:32)
[2017-08-16] MEDS: FOLIC ACID 1 MG TAB PO (13:32)
[2017-08-16] MEDS: RIFAXIMIN 550 MG TAB PO ×2 (13:33→21:35)
[2017-08-16] MEDS: DEXTROSE 5% 1,000 ML IV (18:13)
[2017-08-16] MEDS: LACTOBACILLUS RHAMNOSUS CAP PO (21:36)
[2017-08-17] MEDS: LACTULOSE 30ML CUP PO ×6 (01:46→21:18)
[2017-08-17] MEDS: FUROSEMIDE 40 MG TAB PO (06:00)
[2017-08-17] MEDS: PANTOPRAZOLE 40 MG INJ IV (06:01)
[2017-08-17] MEDS: LEVOTHYROXINE 50 MCG TAB PO (07:00)
[2017-08-17] MEDS: NYSTATIN 30 GM POWDER BTL TOP ×2 (09:00→21:19)
[2017-08-17] MEDS: RIFAXIMIN 550 MG TAB PO ×2 (12:08→21:18)
[2017-08-17] MEDS: SPIRONOLACTONE 50 MG TAB PO (12:08)
[2017-08-17] MEDS: THIAMINE 100 MG TAB PO (12:08)
[2017-08-17] MEDS: ZINC SULFATE 220 MG CAP PO (12:08)
[2017-08-17] MEDS: LACTOBACILLUS RHAMNOSUS CAP PO ×2 (12:08→21:18)
[2017-08-17] MEDS: FOLIC ACID 1 MG TAB PO (12:08)
[2017-08-17] MEDS: DEXTROSE 5% 1,000 ML IV (12:28)
[2017-08-18] MEDS: LACTULOSE 30ML CUP PO ×6 (00:28→20:45)
[2017-08-18] MEDS: DEXTROSE 5% 1,000 ML IV ×2 (02:11→14:35)
[2017-08-18] MEDS: FUROSEMIDE 40 MG TAB PO (05:56)
[2017-08-18] MEDS: PANTOPRAZOLE 40 MG INJ IV (05:56)
[2017-08-18] MEDS: LEVOTHYROXINE 50 MCG TAB PO (06:52)
[2017-08-18] MEDS: SPIRONOLACTONE 50 MG TAB PO (08:33)
[2017-08-18] MEDS: NYSTATIN 30 GM POWDER BTL TOP ×2 (08:33→20:45)
[2017-08-18] MEDS: LACTOBACILLUS RHAMNOSUS CAP PO ×2 (08:33→20:45)
[2017-08-18] MEDS: FOLIC ACID 1 MG TAB PO (08:33)
[2017-08-18] MEDS: THIAMINE 100 MG TAB PO (08:33)
[2017-08-18] MEDS: RIFAXIMIN 550 MG TAB PO ×2 (08:33→20:44)
[2017-08-18] MEDS: ZINC SULFATE 220 MG CAP PO (08:34)
[2017-08-18 09:05] LABS: ADD MAN DIFF? NO
[2017-08-18 09:10] LABS: BASOPHILS % 0.3 % (0.0-2.0); EOSINOPHILS # 0.4 10^3/ul (0.0-0.5); EOSINOPHILS % 5.1 % (0.0-7.0); HEMATOCRIT 23.8 % (37.0-47.0); HEMOGLOBIN 7.8 g/dl (12.0-16.0); LYMPHOCYTES # 1.5 10^3/ul (0.8-2.9); LYMPHOCYTES % 20.2 % (15.0-51.0); MEAN CORPUSCULAR HEMOGLOBIN 32.5 pg (29.0-33.0); MEAN CORPUSCULAR HGB CONC 32.8 g/dl (32.0-37.0); MEAN CORPUSCULAR VOLUME 99.2 fl (82.0-101.0); MEAN PLATELET VOLUME 12.3 fl (7.4-10.4); MONOCYTE # 0.6 10^3/ul (0.3-0.9); MONOCYTES % 7.5 % (0.0-11.0); NEUTROPHILS % 66.6 % (39.0-77.0); PLATELET COUNT 119 10^3/UL (140-415); RED CELL DISTRIBUTION WIDTH 19.4 % (11.5-14.5)
[2017-08-18 09:10] LABS: WHITE BLOOD COUNT 7.5 10^3/ul (4.8-10.8)
[2017-08-18 09:24] LABS: INR 1.74; PROTIME 20.7 Sec (11.9-14.9); PT RATIO 1.6
[2017-08-18 09:31] LABS: ALBUMIN/GLOBULIN RATIO 0.61; ANION GAP 16 (8-16)
[2017-08-18 09:32] LABS: ALANINE AMINOTRANSFERASE 43 IU/L (13-69); ALKALINE PHOSPHATASE 133 IU/L (42-121); ASPARTATE AMINO TRANSFERASE 94 IU/L (15-46); BILIRUBIN,INDIRECT 2.4 mg/dl (0-1.1); BLOOD UREA NITROGEN 38 mg/dl (7-20); CALCIUM 10.8 mg/dl (8.4-10.2); CARBON DIOXIDE 18 mmol/L (21-31); CHLORIDE 121 mmol/L (97-110); GLUCOSE 184 mg/dl (70-220); POTASSIUM 3.9 mmol/L (3.5-5.1); SODIUM 151 mmol/L (135-144); TOTAL PROTEIN 7.1 g/dl (6.1-8.1)
[2017-08-18 09:33] LABS: ALBUMIN 2.7 g/dl (3.3-4.9)
[2017-08-18] MEDS: LORATADINE 10 MG TAB PO (14:35)
[2017-08-18 16:41] LABS: AMMONIA 35 umol/l (9-30)
[2017-08-19] MEDS: LACTULOSE 30ML CUP PO ×6 (01:31→21:00)
[2017-08-19] MEDS: DEXTROSE 5% 1,000 ML IV (04:38)
[2017-08-19] MEDS: FUROSEMIDE 40 MG TAB PO (06:11)
[2017-08-19] MEDS: PANTOPRAZOLE 40 MG INJ IV (06:11)
[2017-08-19] MEDS: LEVOTHYROXINE 50 MCG TAB PO (06:28)
[2017-08-19] MEDS: LORATADINE 10 MG TAB PO (08:59)
[2017-08-19] MEDS: ZINC SULFATE 220 MG CAP PO (08:59)
[2017-08-19] MEDS: FOLIC ACID 1 MG TAB PO (08:59)
[2017-08-19] MEDS: SPIRONOLACTONE 50 MG TAB PO (09:00)
[2017-08-19] MEDS: LACTOBACILLUS RHAMNOSUS CAP PO ×2 (09:00→20:59)
[2017-08-19] MEDS: RIFAXIMIN 550 MG TAB PO ×2 (09:00→20:59)
[2017-08-19] MEDS: NYSTATIN 30 GM POWDER BTL TOP ×2 (09:00→21:00)
[2017-08-19 09:40] LABS: ADD MAN DIFF? NO
[2017-08-19 09:45] LABS: WHITE BLOOD COUNT 5.7 10^3/ul (4.8-10.8)
[2017-08-19 09:45] LABS: BASOPHILS % 0.2 % (0.0-2.0); EOSINOPHILS # 0.4 10^3/ul (0.0-0.5); EOSINOPHILS % 6.7 % (0.0-7.0); HEMATOCRIT 22.6 % (37.0-47.0); HEMOGLOBIN 7.5 g/dl (12.0-16.0); LYMPHOCYTES # 1.3 10^3/ul (0.8-2.9); LYMPHOCYTES % 22.5 % (15.0-51.0); MEAN CORPUSCULAR HEMOGLOBIN 33.5 pg (29.0-33.0); MEAN CORPUSCULAR HGB CONC 33.2 g/dl (32.0-37.0); MEAN CORPUSCULAR VOLUME 100.9 fl (82.0-101.0); MEAN PLATELET VOLUME 12.5 fl (7.4-10.4); MONOCYTE # 0.4 10^3/ul (0.3-0.9); MONOCYTES % 7.2 % (0.0-11.0); NEUTROPHIL # 3.6 10^3/ul (1.6-7.5); PLATELET COUNT 106 10^3/UL (140-415); RED BLOOD COUNT 2.24 10^6/ul (4.20-5.40); RED CELL DISTRIBUTION WIDTH 18.7 % (11.5-14.5)
[2017-08-19 09:51] LABS: POSITIVE DIFF @See below
[2017-08-19 10:11] LABS: ANION GAP 13 (8-16); BLOOD UREA NITROGEN 34 mg/dl (7-20); CALCIUM 10.2 mg/dl (8.4-10.2); CARBON DIOXIDE 18 mmol/L (21-31); CHLORIDE 115 mmol/L (97-110); CREATININE 2.17 mg/dl (0.44-1.00); GLUCOSE 161 mg/dl (70-220); POTASSIUM 3.6 mmol/L (3.5-5.1); SODIUM 142 mmol/L (135-144)
[2017-08-19 10:12] LABS: INR 1.81; PROTIME 21.4 Sec (11.9-14.9); PT RATIO 1.7
[2017-08-19 10:13] LABS: PARTIAL THROMBOPLASTIN TIME 43.9 Sec (25.0-35.0)
[2017-08-19] MEDS: THIAMINE 100 MG TAB PO (15:18)
[2017-08-19] MEDS: ALBUMIN HUMAN 5% 250 ML IV ×2 (15:19→16:35)
[2017-08-20] MEDS: LACTULOSE 30ML CUP PO ×6 (01:08→21:56)
[2017-08-20] MEDS: FUROSEMIDE 40 MG TAB PO (06:00)
[2017-08-20 06:06] LABS: ADD MAN DIFF? NO
[2017-08-20] MEDS: PANTOPRAZOLE 40 MG INJ IV (06:13)
[2017-08-20] MEDS: LEVOTHYROXINE 50 MCG TAB PO (06:13)
[2017-08-20 06:48] LABS: BASOPHILS % 0.2 % (0.0-2.0); EOSINOPHILS # 0.4 10^3/ul (0.0-0.5); EOSINOPHILS % 6.4 % (0.0-7.0); HEMATOCRIT 22.3 % (37.0-47.0); HEMOGLOBIN 7.4 g/dl (12.0-16.0); LYMPHOCYTES # 1.3 10^3/ul (0.8-2.9); LYMPHOCYTES % 23.7 % (15.0-51.0); MEAN CORPUSCULAR HEMOGLOBIN 33.3 pg (29.0-33.0); MEAN CORPUSCULAR HGB CONC 33.2 g/dl (32.0-37.0); MEAN CORPUSCULAR VOLUME 100.5 fl (82.0-101.0); MEAN PLATELET VOLUME 12.3 fl (7.4-10.4); MONOCYTE # 0.4 10^3/ul (0.3-0.9); MONOCYTES % 7.5 % (0.0-11.0); NEUTROPHIL # 3.4 10^3/ul (1.6-7.5); NEUTROPHILS % 61.6 % (39.0-77.0); PLATELET COUNT 100 10^3/UL (140-415); RED BLOOD COUNT 2.22 10^6/ul (4.20-5.40); RED CELL DISTRIBUTION WIDTH 18.8 % (11.5-14.5)
[2017-08-20 06:48] LABS: WHITE BLOOD COUNT 5.4 10^3/ul (4.8-10.8)
[2017-08-20 07:05] LABS: POSITIVE DIFF @See below
[2017-08-20 07:12] LABS: AMMONIA 56 umol/l (9-30)
[2017-08-20 07:36] LABS: ANION GAP 13 (8-16); BLOOD UREA NITROGEN 29 mg/dl (7-20); CALCIUM 10.4 mg/dl (8.4-10.2); CARBON DIOXIDE 18 mmol/L (21-31); CHLORIDE 118 mmol/L (97-110); CREATININE 1.85 mg/dl (0.44-1.00); GLUCOSE 132 mg/dl (70-220); POTASSIUM 3.9 mmol/L (3.5-5.1); SODIUM 145 mmol/L (135-144)
[2017-08-20] MEDS: ZINC SULFATE 220 MG CAP PO (09:14)
[2017-08-20] MEDS: LACTOBACILLUS RHAMNOSUS CAP PO ×2 (09:14→21:56)
[2017-08-20] MEDS: LORATADINE 10 MG TAB PO (09:14)
[2017-08-20] MEDS: THIAMINE 100 MG TAB PO (09:14)
[2017-08-20] MEDS: RIFAXIMIN 550 MG TAB PO ×2 (09:14→21:56)
[2017-08-20] MEDS: FOLIC ACID 1 MG TAB PO (09:14)
[2017-08-20] MEDS: NYSTATIN 30 GM POWDER BTL TOP ×2 (09:17→21:58)
[2017-08-20] MEDS: SPIRONOLACTONE 50 MG TAB PO (09:18)
[2017-08-20 16:53] LABS: ADD UMIC YES; UR ASCORBIC ACID 40 mg/dL (NEGATIVE); UR BACTERIA FEW /HPF (NONE SEEN); UR BILIRUBIN (Dip) NEGATIVE (NEGATIVE); UR BLOOD (Dip) NEGATIVE (NEGATIVE); UR CLARITY CLEAR (CLEAR); UR COLOR AMBER (YELLOW); UR GLUCOSE (Dip) NEGATIVE (NEGATIVE); UR KETONES (Dip) NEGATIVE (NEGATIVE); UR LEUKOCYTE ESTERASE (Dip) 2+ Leu/ul (NEGATIVE); UR MUCUS FEW /HPF (NONE SEEN); UR NITRITE (Dip) POSITIVE (NEGATIVE); UR RBC 4 /HPF (0-5); UR SPECIFIC GRAVITY (Dip) 1.017 (1.003-1.030); UR TOTAL PROTEIN (Dip) NEGATIVE (NEGATIVE); UR UROBILINOGEN (Dip) 1+ mg/dL (NEGATIVE); UR WBC 39 /HPF (0-5)
[2017-08-21] MEDS: LACTULOSE 30ML CUP PO ×5 (01:35→17:00)
[2017-08-21] MEDS: PANTOPRAZOLE 40 MG INJ IV (05:59)
[2017-08-21] MEDS: FUROSEMIDE 40 MG TAB PO (06:00)
[2017-08-21] MEDS: LEVOTHYROXINE 50 MCG TAB PO (06:05)
[2017-08-21 07:54] LABS: ADD MAN DIFF? NO
[2017-08-21 07:59] LABS: BASOPHILS % 0.2 % (0.0-2.0); EOSINOPHILS # 0.3 10^3/ul (0.0-0.5); EOSINOPHILS % 5.2 % (0.0-7.0); HEMATOCRIT 21.5 % (37.0-47.0); HEMOGLOBIN 7.2 g/dl (12.0-16.0); LYMPHOCYTES # 1.3 10^3/ul (0.8-2.9); LYMPHOCYTES % 24.8 % (15.0-51.0); MEAN CORPUSCULAR HEMOGLOBIN 33.2 pg (29.0-33.0); MEAN CORPUSCULAR HGB CONC 33.5 g/dl (32.0-37.0); MEAN CORPUSCULAR VOLUME 99.1 fl (82.0-101.0); MEAN PLATELET VOLUME 12.6 fl (7.4-10.4); MONOCYTE # 0.4 10^3/ul (0.3-0.9); NEUTROPHIL # 3.3 10^3/ul (1.6-7.5); NEUTROPHILS % 61.2 % (39.0-77.0); PLATELET COUNT 107 10^3/UL (140-415); RED BLOOD COUNT 2.17 10^6/ul (4.20-5.40)
[2017-08-21 07:59] LABS: WHITE BLOOD COUNT 5.4 10^3/ul (4.8-10.8)
[2017-08-21 08:27] LABS: PHOSPHORUS 3.1 mg/dl (2.5-4.9)
[2017-08-21 08:31] LABS: ALANINE AMINOTRANSFERASE 41 IU/L (13-69); ALBUMIN 2.6 g/dl (3.3-4.9); ALBUMIN/GLOBULIN RATIO 0.63; ALKALINE PHOSPHATASE 147 IU/L (42-121); ANION GAP 13 (8-16); ASPARTATE AMINO TRANSFERASE 69 IU/L (15-46); BILIRUBIN,TOTAL 4.4 mg/dl (0.2-1.3); BLOOD UREA NITROGEN 26 mg/dl (7-20); CALCIUM 10.9 mg/dl (8.4-10.2); CARBON DIOXIDE 18 mmol/L (21-31); CHLORIDE 121 mmol/L (97-110); CREATININE 1.71 mg/dl (0.44-1.00); GLUCOSE 130 mg/dl (70-220); POTASSIUM 3.9 mmol/L (3.5-5.1); SODIUM 148 mmol/L (135-144); TOTAL PROTEIN 6.7 g/dl (6.1-8.1)
[2017-08-21] MEDS: FOLIC ACID 1 MG TAB PO (08:39)
[2017-08-21] MEDS: LORATADINE 10 MG TAB PO (08:39)
[2017-08-21] MEDS: SPIRONOLACTONE 50 MG TAB PO (08:39)
[2017-08-21] MEDS: NYSTATIN 30 GM POWDER BTL TOP ×2 (08:39→21:00)
[2017-08-21] MEDS: LACTOBACILLUS RHAMNOSUS CAP PO (08:39)
[2017-08-21] MEDS: ZINC SULFATE 220 MG CAP PO (08:39)
[2017-08-21] MEDS: RIFAXIMIN 550 MG TAB PO (08:39)
[2017-08-21 08:42] LABS: AMMONIA 61 umol/l (9-30)
[2017-08-21 08:44] LABS: FREE T4 (FREE THYROXINE) 1.59 ng/dl (0.79-2.35)
[2017-08-21 10:05] LABS: FREE T3 2.69 pg/ml (2.77-5.27)
[2017-08-21] MEDS: THIAMINE 100 MG TAB PO (10:05)
[2017-08-21] MEDS: MEROPENEM 500MG/50 ML (PMX) 50 ML IVPB (14:33)
[2017-08-21 15:48] LABS: RAPID PLASMA REAGIN NONREACTIVE (NR)
[2017-08-22] MEDS: LACTULOSE 30ML CUP PO ×7 (00:02→20:45)
[2017-08-22] MEDS: MEROPENEM 500MG/50 ML (PMX) 50 ML IVPB ×3 (00:03→14:50)
[2017-08-22] MEDS: LACTOBACILLUS RHAMNOSUS CAP PO ×3 (00:03→20:45)
[2017-08-22] MEDS: RIFAXIMIN 550 MG TAB PO ×3 (00:03→20:45)
[2017-08-22] MEDS: PANTOPRAZOLE 40 MG INJ IV (06:02)
[2017-08-22] MEDS: FUROSEMIDE 40 MG TAB PO (06:03)
[2017-08-22] MEDS: LEVOTHYROXINE 50 MCG TAB PO (06:03)
[2017-08-22 06:10] LABS: ADD MAN DIFF? NO
[2017-08-22 06:15] LABS: WHITE BLOOD COUNT 6.3 10^3/ul (4.8-10.8)
[2017-08-22 06:15] LABS: BASOPHILS % 0.3 % (0.0-2.0); EOSINOPHILS # 0.4 10^3/ul (0.0-0.5); EOSINOPHILS % 6.2 % (0.0-7.0); HEMATOCRIT 23.7 % (37.0-47.0); HEMOGLOBIN 7.8 g/dl (12.0-16.0); LYMPHOCYTES # 1.5 10^3/ul (0.8-2.9); MEAN CORPUSCULAR HEMOGLOBIN 33.6 pg (29.0-33.0); MEAN CORPUSCULAR HGB CONC 32.9 g/dl (32.0-37.0); MEAN CORPUSCULAR VOLUME 102.2 fl (82.0-101.0); MEAN PLATELET VOLUME 12.1 fl (7.4-10.4); MONOCYTE # 0.5 10^3/ul (0.3-0.9); MONOCYTES % 7.7 % (0.0-11.0); NEUTROPHIL # 3.9 10^3/ul (1.6-7.5); NEUTROPHILS % 61.2 % (39.0-77.0); PLATELET COUNT 126 10^3/UL (140-415); RED BLOOD COUNT 2.32 10^6/ul (4.20-5.40); RED CELL DISTRIBUTION WIDTH 19.2 % (11.5-14.5)
[2017-08-22 06:36] LABS: POSITIVE DIFF @See below
[2017-08-22 06:44] LABS: AMMONIA 55 umol/l (9-30)
[2017-08-22 06:46] LABS: ALANINE AMINOTRANSFERASE 38 IU/L (13-69); ALBUMIN 2.8 g/dl (3.3-4.9); ALKALINE PHOSPHATASE 126 IU/L (42-121); ANION GAP 12 (8-16); ASPARTATE AMINO TRANSFERASE 71 IU/L (15-46); BILIRUBIN,INDIRECT 2.2 mg/dl (0-1.1); BILIRUBIN,TOTAL 4.7 mg/dl (0.2-1.3); BLOOD UREA NITROGEN 24 mg/dl (7-20); CALCIUM 11.1 mg/dl (8.4-10.2); CARBON DIOXIDE 18 mmol/L (21-31); CHLORIDE 121 mmol/L (97-110); CREATININE 1.63 mg/dl (0.44-1.00); GLUCOSE 108 mg/dl (70-220); POTASSIUM 4.4 mmol/L (3.5-5.1); SODIUM 147 mmol/L (135-144); TOTAL PROTEIN 6.8 g/dl (6.1-8.1)
[2017-08-22 08:22] LABS: MAGNESIUM 1.9 mg/dl (1.7-2.5)
[2017-08-22 08:22] LABS: PHOSPHORUS 3.7 mg/dl (2.5-4.9)
[2017-08-22] MEDS: THIAMINE 100 MG TAB PO (09:21)
[2017-08-22] MEDS: FOLIC ACID 1 MG TAB PO (09:21)
[2017-08-22] MEDS: ZINC SULFATE 220 MG CAP PO (09:21)
[2017-08-22] MEDS: LORATADINE 10 MG TAB PO (09:23)
[2017-08-22] MEDS: SPIRONOLACTONE 50 MG TAB PO (09:24)
[2017-08-22] MEDS: NYSTATIN 30 GM POWDER BTL TOP ×2 (09:27→22:32)
[2017-08-22] MEDS: ERTAPENEM SODIUM 1 GM in SOD CHLORIDE 0.9% 100 ML IVPB (19:59)
[2017-08-23] MEDS: LACTULOSE 30ML CUP PO ×6 (01:07→22:06)
[2017-08-23] MEDS: PANTOPRAZOLE 40 MG INJ IV (05:34)
[2017-08-23] MEDS: FUROSEMIDE 40 MG TAB PO (05:35)
[2017-08-23] MEDS: LEVOTHYROXINE 50 MCG TAB PO (05:46)
[2017-08-23 08:51] LABS: WHITE BLOOD COUNT 4.8 10^3/ul (4.8-10.8)
[2017-08-23 08:51] LABS: HEMATOCRIT 22.5 % (37.0-47.0); HEMOGLOBIN 7.4 g/dl (12.0-16.0); MEAN CORPUSCULAR HEMOGLOBIN 33.2 pg (29.0-33.0); MEAN CORPUSCULAR HGB CONC 32.9 g/dl (32.0-37.0); MEAN CORPUSCULAR VOLUME 100.9 fl (82.0-101.0); MEAN PLATELET VOLUME 12.3 fl (7.4-10.4); PLATELET COUNT 110 10^3/UL (140-415); RED BLOOD COUNT 2.23 10^6/ul (4.20-5.40); RED CELL DISTRIBUTION WIDTH 18.5 % (11.5-14.5)
[2017-08-23] MEDS: THIAMINE 100 MG TAB PO (08:56)
[2017-08-23] MEDS: LORATADINE 10 MG TAB PO (08:56)
[2017-08-23] MEDS: RIFAXIMIN 550 MG TAB PO ×2 (08:56→22:06)
[2017-08-23] MEDS: LACTOBACILLUS RHAMNOSUS CAP PO ×2 (08:56→22:05)
[2017-08-23] MEDS: ZINC SULFATE 220 MG CAP PO (08:56)
[2017-08-23] MEDS: FOLIC ACID 1 MG TAB PO (08:56)
[2017-08-23] MEDS: SPIRONOLACTONE 50 MG TAB PO (08:56)
[2017-08-23] MEDS: NYSTATIN 30 GM POWDER BTL TOP ×2 (08:58→21:00)
[2017-08-23 09:04] LABS: ADD MAN DIFF? YES; POSITIVE DIFF @See below
[2017-08-23 09:12] LABS: AMMONIA 60 umol/l (9-30)
[2017-08-23 09:54] LABS: ALANINE AMINOTRANSFERASE 39 IU/L (13-69); ALBUMIN 2.6 g/dl (3.3-4.9); ALBUMIN/GLOBULIN RATIO 0.66; ALKALINE PHOSPHATASE 114 IU/L (42-121); ANION GAP 14 (8-16); ASPARTATE AMINO TRANSFERASE 64 IU/L (15-46); BILIRUBIN,INDIRECT 1.8 mg/dl (0-1.1); BILIRUBIN,TOTAL 3.8 mg/dl (0.2-1.3); BLOOD UREA NITROGEN 19 mg/dl (7-20); CALCIUM 10.7 mg/dl (8.4-10.2); CARBON DIOXIDE 17 mmol/L (21-31); CHLORIDE 110 mmol/L (97-110); CREATININE 1.51 mg/dl (0.44-1.00); GLUCOSE 135 mg/dl (70-220); POTASSIUM 3.9 mmol/L (3.5-5.1); SODIUM 137 mmol/L (135-144); TOTAL PROTEIN 6.5 g/dl (6.1-8.1)
[2017-08-23 10:25] LABS: ANISOCYTOSIS 2+ (0-0); BAND NEUTROPHILS #M 0.4 10^3/ul (0.0-0.6); BAND NEUTROPHILS % (M) 9 % (0-4); BASOPHILS % (M) 1 % (0-2); BURR CELLS 2+ (0-0); EOSINOPHILS % (M) 9 % (0-7); ERYTHROBLAST% (NRBC) (M) 1 % (0-0); LYMPHOCYTES #M 1.3 10^3/ul (0.8-2.9); LYMPHOCYTES % (M) 28 % (15-51); METAMYELOCYTES %M 2 % (0-0); MONOCYTE #M 0.1 10^3/ul (0.3-0.9); MONOCYTES % (M) 3 % (0-11); PLATELET ESTIMATE DECREASED; POIKILOCYTOSIS 2+ (0-0); SEG NEUT #M 2.2 10^3/ul (1.7-7.5); SEGMENTED NEUTROPHILS (M) % 45 % (39-77); SMUDGE%M 7 % (0-0)
[2017-08-23 11:44] LABS: PHOSPHORUS 3.4 mg/dl (2.5-4.9)
[2017-08-23 11:44] LABS: MAGNESIUM 1.5 mg/dl (1.7-2.5)
[2017-08-23] MEDS: ERTAPENEM SODIUM 1 GM in SOD CHLORIDE 0.9% 100 ML IVPB (17:58)
[2017-08-24] MEDS: LACTULOSE 30ML CUP PO ×6 (01:06→20:40)
[2017-08-24] MEDS: PANTOPRAZOLE 40 MG INJ IV (05:55)
[2017-08-24] MEDS: FUROSEMIDE 40 MG TAB PO (05:58)
[2017-08-24] MEDS: LEVOTHYROXINE 50 MCG TAB PO (06:05)
[2017-08-24 07:33] LABS: ADD MAN DIFF? NO
[2017-08-24 07:38] LABS: BASOPHILS % 0.4 % (0.0-2.0); EOSINOPHILS # 0.3 10^3/ul (0.0-0.5); HEMATOCRIT 21.8 % (37.0-47.0); HEMOGLOBIN 7.4 g/dl (12.0-16.0); LYMPHOCYTES # 1.1 10^3/ul (0.8-2.9); LYMPHOCYTES % 22.9 % (15.0-51.0); MEAN CORPUSCULAR HEMOGLOBIN 33.2 pg (29.0-33.0); MEAN CORPUSCULAR HGB CONC 33.9 g/dl (32.0-37.0); MEAN CORPUSCULAR VOLUME 97.8 fl (82.0-101.0); MEAN PLATELET VOLUME 12.4 fl (7.4-10.4); MONOCYTE # 0.4 10^3/ul (0.3-0.9); MONOCYTES % 8.7 % (0.0-11.0); NEUTROPHIL # 2.9 10^3/ul (1.6-7.5); NEUTROPHILS % 61.2 % (39.0-77.0); PLATELET COUNT 114 10^3/UL (140-415); RED BLOOD COUNT 2.23 10^6/ul (4.20-5.40)
[2017-08-24 07:38] LABS: WHITE BLOOD COUNT 4.8 10^3/ul (4.8-10.8)
[2017-08-24 08:06] LABS: MAGNESIUM 1.4 mg/dl (1.7-2.5)
[2017-08-24 08:06] LABS: PHOSPHORUS 3.5 mg/dl (2.5-4.9)
[2017-08-24 08:07] LABS: ALANINE AMINOTRANSFERASE 40 IU/L (13-69); ALBUMIN 2.7 g/dl (3.3-4.9); ALBUMIN/GLOBULIN RATIO 0.71; ALKALINE PHOSPHATASE 123 IU/L (42-121); ANION GAP 13 (8-16); ASPARTATE AMINO TRANSFERASE 59 IU/L (15-46); BILIRUBIN,INDIRECT 1.6 mg/dl (0-1.1); BILIRUBIN,TOTAL 2.9 mg/dl (0.2-1.3); BLOOD UREA NITROGEN 15 mg/dl (7-20); CALCIUM 10.3 mg/dl (8.4-10.2); CARBON DIOXIDE 17 mmol/L (21-31); CHLORIDE 109 mmol/L (97-110); CREATININE 1.46 mg/dl (0.44-1.00); GLUCOSE 128 mg/dl (70-220); SODIUM 135 mmol/L (135-144); TOTAL PROTEIN 6.5 g/dl (6.1-8.1)
[2017-08-24 08:16] LABS: AMMONIA 62 umol/l (9-30)
[2017-08-24] MEDS: NYSTATIN 30 GM POWDER BTL TOP ×2 (09:00→20:43)
[2017-08-24] MEDS: SPIRONOLACTONE 50 MG TAB PO (09:00)
[2017-08-24] MEDS: RIFAXIMIN 550 MG TAB PO ×2 (10:08→20:40)
[2017-08-24] MEDS: ZINC SULFATE 220 MG CAP PO (10:08)
[2017-08-24] MEDS: LACTOBACILLUS RHAMNOSUS CAP PO ×2 (10:08→20:40)
[2017-08-24] MEDS: FOLIC ACID 1 MG TAB PO (10:09)
[2017-08-24] MEDS: THIAMINE 100 MG TAB PO (10:09)
[2017-08-24] MEDS: LORATADINE 10 MG TAB PO (10:10)
[2017-08-24] MEDS: MAGNESIUM SULFATE 3 GM in DEXTROSE 5% 100 ML IVPB (11:25)
[2017-08-24] MEDS: ERTAPENEM SODIUM 1 GM in SOD CHLORIDE 0.9% 100 ML IVPB (17:49)
[2017-08-25] MEDS: LACTULOSE 30ML CUP PO ×6 (01:06→20:47)
[2017-08-25] MEDS: FUROSEMIDE 40 MG TAB PO (05:43)
[2017-08-25] MEDS: PANTOPRAZOLE (EC) 40 MG TAB PO (05:43)
[2017-08-25] MEDS: LEVOTHYROXINE 50 MCG TAB PO (05:44)
[2017-08-25 05:51] LABS: ADD MAN DIFF? NO
[2017-08-25 05:54] LABS: BASOPHILS % 0.2 % (0.0-2.0); EOSINOPHILS # 0.2 10^3/ul (0.0-0.5); EOSINOPHILS % 4.4 % (0.0-7.0); HEMATOCRIT 22.1 % (37.0-47.0); HEMOGLOBIN 7.6 g/dl (12.0-16.0); LYMPHOCYTES # 1.3 10^3/ul (0.8-2.9); LYMPHOCYTES % 22.9 % (15.0-51.0); MEAN CORPUSCULAR HEMOGLOBIN 32.9 pg (29.0-33.0); MEAN CORPUSCULAR HGB CONC 34.4 g/dl (32.0-37.0); MEAN CORPUSCULAR VOLUME 95.7 fl (82.0-101.0); MEAN PLATELET VOLUME 12.4 fl (7.4-10.4); MONOCYTE # 0.5 10^3/ul (0.3-0.9); MONOCYTES % 8.5 % (0.0-11.0); NEUTROPHIL # 3.5 10^3/ul (1.6-7.5); NEUTROPHILS % 63.1 % (39.0-77.0); PLATELET COUNT 122 10^3/UL (140-415); RED BLOOD COUNT 2.31 10^6/ul (4.20-5.40); RED CELL DISTRIBUTION WIDTH 17.5 % (11.5-14.5)
[2017-08-25 05:54] LABS: WHITE BLOOD COUNT 5.5 10^3/ul (4.8-10.8)
[2017-08-25 06:16] LABS: PHOSPHORUS 3.4 mg/dl (2.5-4.9)
[2017-08-25 06:19] LABS: ALANINE AMINOTRANSFERASE 37 IU/L (13-69); ALBUMIN 2.7 g/dl (3.3-4.9); ALBUMIN/GLOBULIN RATIO 0.71; ALKALINE PHOSPHATASE 123 IU/L (42-121); ANION GAP 14 (8-16); ASPARTATE AMINO TRANSFERASE 57 IU/L (15-46); BILIRUBIN,INDIRECT 1.5 mg/dl (0-1.1); BILIRUBIN,TOTAL 2.5 mg/dl (0.2-1.3); BLOOD UREA NITROGEN 13 mg/dl (7-20); CALCIUM 9.9 mg/dl (8.4-10.2); CARBON DIOXIDE 17 mmol/L (21-31); CHLORIDE 107 mmol/L (97-110); CREATININE 1.34 mg/dl (0.44-1.00); GLUCOSE 156 mg/dl (70-220); POTASSIUM 3.8 mmol/L (3.5-5.1); SODIUM 134 mmol/L (135-144); TOTAL PROTEIN 6.5 g/dl (6.1-8.1)
[2017-08-25 06:34] LABS: AMMONIA 62 umol/l (9-30)
[2017-08-25] MEDS: LACTOBACILLUS RHAMNOSUS CAP PO ×2 (09:02→20:47)
[2017-08-25] MEDS: FOLIC ACID 1 MG TAB PO (09:03)
[2017-08-25] MEDS: RIFAXIMIN 550 MG TAB PO ×2 (09:03→20:46)
[2017-08-25] MEDS: ZINC SULFATE 220 MG CAP PO (09:03)
[2017-08-25] MEDS: THIAMINE 100 MG TAB PO (09:03)
[2017-08-25] MEDS: LORATADINE 10 MG TAB PO (09:03)
[2017-08-25] MEDS: SPIRONOLACTONE 50 MG TAB PO (09:04)
[2017-08-25] MEDS: NYSTATIN 30 GM POWDER BTL TOP ×2 (09:09→20:48)
[2017-08-25] MEDS: ERTAPENEM SODIUM 1 GM in SOD CHLORIDE 0.9% 100 ML IVPB (18:03)
[2017-08-26] MEDS: LACTULOSE 30ML CUP PO ×6 (01:04→21:28)
[2017-08-26] MEDS: PANTOPRAZOLE (EC) 40 MG TAB PO (05:06)
[2017-08-26] MEDS: FUROSEMIDE 40 MG TAB PO (05:10)
[2017-08-26] MEDS: LEVOTHYROXINE 50 MCG TAB PO (05:11)
[2017-08-26 06:23] LABS: ADD MAN DIFF? NO
[2017-08-26 06:39] LABS: BASOPHILS % 0.3 % (0.0-2.0); EOSINOPHILS # 0.2 10^3/ul (0.0-0.5); EOSINOPHILS % 3.9 % (0.0-7.0); HEMATOCRIT 20.8 % (37.0-47.0); HEMOGLOBIN 7.1 g/dl (12.0-16.0); LYMPHOCYTES # 1.2 10^3/ul (0.8-2.9); LYMPHOCYTES % 20.7 % (15.0-51.0); MEAN CORPUSCULAR HEMOGLOBIN 33.3 pg (29.0-33.0); MEAN CORPUSCULAR HGB CONC 34.1 g/dl (32.0-37.0); MEAN CORPUSCULAR VOLUME 97.7 fl (82.0-101.0); MEAN PLATELET VOLUME 12.5 fl (7.4-10.4); MONOCYTE # 0.4 10^3/ul (0.3-0.9); MONOCYTES % 7.2 % (0.0-11.0); NEUTROPHILS % 67.2 % (39.0-77.0); PLATELET COUNT 117 10^3/UL (140-415); RED BLOOD COUNT 2.13 10^6/ul (4.20-5.40); RED CELL DISTRIBUTION WIDTH 18.1 % (11.5-14.5)
[2017-08-26 06:39] LABS: WHITE BLOOD COUNT 5.9 10^3/ul (4.8-10.8)
[2017-08-26 06:53] LABS: MAGNESIUM 1.6 mg/dl (1.7-2.5)
[2017-08-26 06:53] LABS: PHOSPHORUS 3.1 mg/dl (2.5-4.9)
[2017-08-26 06:56] LABS: ALANINE AMINOTRANSFERASE 32 IU/L (13-69); ALBUMIN 2.5 g/dl (3.3-4.9); ALBUMIN/GLOBULIN RATIO 0.65; ALKALINE PHOSPHATASE 124 IU/L (42-121); ANION GAP 16 (8-16); ASPARTATE AMINO TRANSFERASE 55 IU/L (15-46); BILIRUBIN,INDIRECT 1.6 mg/dl (0-1.1); BILIRUBIN,TOTAL 2.9 mg/dl (0.2-1.3); BLOOD UREA NITROGEN 13 mg/dl (7-20); CALCIUM 9.6 mg/dl (8.4-10.2); CARBON DIOXIDE 20 mmol/L (21-31); CHLORIDE 105 mmol/L (97-110); GLUCOSE 156 mg/dl (70-220); POTASSIUM 3.5 mmol/L (3.5-5.1); SODIUM 137 mmol/L (135-144); TOTAL PROTEIN 6.3 g/dl (6.1-8.1)
[2017-08-26 07:10] LABS: AMMONIA 62 umol/l (9-30)
[2017-08-26] MEDS: SPIRONOLACTONE 50 MG TAB PO (09:00)
[2017-08-26] MEDS: NYSTATIN 30 GM POWDER BTL TOP ×2 (09:00→21:00)
[2017-08-26] MEDS: ZINC SULFATE 220 MG CAP PO (09:09)
[2017-08-26] MEDS: LORATADINE 10 MG TAB PO (09:09)
[2017-08-26] MEDS: THIAMINE 100 MG TAB PO (09:10)
[2017-08-26] MEDS: FOLIC ACID 1 MG TAB PO (09:10)
[2017-08-26] MEDS: LACTOBACILLUS RHAMNOSUS CAP PO ×2 (09:10→21:28)
[2017-08-26] MEDS: RIFAXIMIN 550 MG TAB PO ×2 (11:02→21:00)
[2017-08-26] MEDS: MAGNESIUM SULFATE 2 GM/50 ML 50 ML IVPB (12:00)
[2017-08-26] MEDS: ERTAPENEM SODIUM 1 GM in SOD CHLORIDE 0.9% 100 ML IVPB ×2 (18:30→18:57)
[2017-08-27] MEDS: RIFAXIMIN 550 MG TAB PO ×3 (01:36→21:09)
[2017-08-27] MEDS: LACTULOSE 30ML CUP PO ×6 (01:36→21:09)
[2017-08-27] MEDS: LEVOTHYROXINE 50 MCG TAB PO (06:06)
[2017-08-27] MEDS: PANTOPRAZOLE (EC) 40 MG TAB PO (06:06)
[2017-08-27] MEDS: FUROSEMIDE 40 MG TAB PO (06:06)
[2017-08-27 06:41] LABS: WHITE BLOOD COUNT 6.8 10^3/ul (4.8-10.8)
[2017-08-27 06:41] LABS: HEMATOCRIT 20.6 % (37.0-47.0); HEMOGLOBIN 7.2 g/dl (12.0-16.0); MEAN CORPUSCULAR HEMOGLOBIN 33.6 pg (29.0-33.0); MEAN CORPUSCULAR VOLUME 96.3 fl (82.0-101.0); MEAN PLATELET VOLUME 12.1 fl (7.4-10.4); PLATELET COUNT 115 10^3/UL (140-415); RED BLOOD COUNT 2.14 10^6/ul (4.20-5.40); RED CELL DISTRIBUTION WIDTH 18.1 % (11.5-14.5)
[2017-08-27 07:32] LABS: ADD MAN DIFF? YES; POSITIVE DIFF @See below
[2017-08-27 07:34] LABS: ALANINE AMINOTRANSFERASE 32 IU/L (13-69); ALBUMIN 2.4 g/dl (3.3-4.9); ALBUMIN/GLOBULIN RATIO 0.63; ALKALINE PHOSPHATASE 138 IU/L (42-121); ANION GAP 15 (8-16); ASPARTATE AMINO TRANSFERASE 50 IU/L (15-46); BILIRUBIN,INDIRECT 1.7 mg/dl (0-1.1); BILIRUBIN,TOTAL 3.1 mg/dl (0.2-1.3); BLOOD UREA NITROGEN 13 mg/dl (7-20); CALCIUM 9.8 mg/dl (8.4-10.2); CARBON DIOXIDE 18 mmol/L (21-31); CHLORIDE 107 mmol/L (97-110); CREATININE 1.22 mg/dl (0.44-1.00); GLUCOSE 136 mg/dl (70-220); POTASSIUM 3.7 mmol/L (3.5-5.1); SODIUM 136 mmol/L (135-144); TOTAL PROTEIN 6.2 g/dl (6.1-8.1)
[2017-08-27 07:35] LABS: PHOSPHORUS 3.3 mg/dl (2.5-4.9)
[2017-08-27] MEDS: FOLIC ACID 1 MG TAB PO (09:19)
[2017-08-27] MEDS: LACTOBACILLUS RHAMNOSUS CAP PO ×2 (09:19→21:10)
[2017-08-27] MEDS: SPIRONOLACTONE 50 MG TAB PO (09:19)
[2017-08-27] MEDS: LORATADINE 10 MG TAB PO (09:19)
[2017-08-27] MEDS: NYSTATIN 30 GM POWDER BTL TOP ×2 (09:20→21:12)
[2017-08-27] MEDS: THIAMINE 100 MG TAB PO (09:20)
[2017-08-27] MEDS: ZINC SULFATE 220 MG CAP PO (09:20)
[2017-08-27 09:37] LABS: AMMONIA 94 umol/l (9-30)
[2017-08-27] MEDS: ALTEPLASE (CATHFLO) 2 MG INJ CATHETER (11:32)
[2017-08-27 12:14] LABS: ANISOCYTOSIS 2+ (0-0); BAND NEUTROPHILS #M 0.4 10^3/ul (0.0-0.6); BAND NEUTROPHILS % (M) 6 % (0-4); BURR CELLS 2+ (0-0); EOSINOPHILS % (M) 7 % (0-7); LYMPHOCYTES #M 1.3 10^3/ul (0.8-2.9); LYMPHOCYTES % (M) 20 % (15-51); MONOCYTE #M 0.2 10^3/ul (0.3-0.9); MONOCYTES % (M) 3 % (0-11); OVALOCYTES 1+ (0-0); PLATELET ESTIMATE DECREASED; POIKILOCYTOSIS 3+ (0-0); POLYCHROMASIA 1+ (0-0); SCHISTOCYTES 1+ (0-0); SEG NEUT #M 4.4 10^3/ul (1.7-7.5); SEGMENTED NEUTROPHILS (M) % 64 % (39-77); SMUDGE%M 8 % (0-0); TARGET CELLS 1+ (0-0)
[2017-08-27] MEDS: IVERMECTIN 3 MG TAB PO (17:01)
[2017-08-27] MEDS: LIDOCAINE 1% (MPF) 5 ML VIAL SC (17:30)
[2017-08-27] MEDS: SOD CHLORIDE 0.9% 100 ML (17:45)
[2017-08-27] MEDS ORDERED: DOXYCYCLINE 100 MG in SOD CHLORIDE 0.9% 250 ML IVPB (21:00)
[2017-08-27] MEDS: PERMETHRIN 5% 60 GM CR TOP (21:11)
[2017-08-27] MEDS: DOXYCYCLINE 100 MG in DEXTROSE 5% 250 ML IVPB (21:20)
[2017-08-28] MEDS: LACTULOSE 30ML CUP PO ×6 (01:22→21:50)
[2017-08-28] MEDS: FUROSEMIDE 40 MG TAB PO (05:11)
[2017-08-28] MEDS: PANTOPRAZOLE (EC) 40 MG TAB PO (05:11)
[2017-08-28] MEDS: LEVOTHYROXINE 50 MCG TAB PO (06:24)
[2017-08-28] MEDS: ZINC SULFATE 220 MG CAP PO (08:13)
[2017-08-28] MEDS: RIFAXIMIN 550 MG TAB PO ×2 (08:13→21:50)
[2017-08-28] MEDS: ERGOCALCIFEROL 50,000 UNIT CAP PO (08:14)
[2017-08-28] MEDS: LORATADINE 10 MG TAB PO (08:14)
[2017-08-28] MEDS: THIAMINE 100 MG TAB PO (08:14)
[2017-08-28] MEDS: LACTOBACILLUS RHAMNOSUS CAP PO ×2 (08:14→21:50)
[2017-08-28] MEDS: FOLIC ACID 1 MG TAB PO (08:14)
[2017-08-28] MEDS: SPIRONOLACTONE 50 MG TAB PO (08:14)
[2017-08-28] MEDS: NYSTATIN 30 GM POWDER BTL TOP ×2 (08:15→21:57)
[2017-08-28] MEDS: DOXYCYCLINE 100 MG in DEXTROSE 5% 250 ML IVPB ×2 (08:18→21:56)
[2017-08-29] MEDS: LACTULOSE 30ML CUP PO ×6 (01:00→21:01)
[2017-08-29] MEDS: PANTOPRAZOLE (EC) 40 MG TAB PO (05:56)
[2017-08-29] MEDS: FUROSEMIDE 40 MG TAB PO (05:58)
[2017-08-29] MEDS: LEVOTHYROXINE 50 MCG TAB PO (06:00)
[2017-08-29 06:56] LABS: ABNORMAL IP MESSAGE 1; HEMATOCRIT 18.5 % (37.0-47.0); MEAN CORPUSCULAR HEMOGLOBIN 33.3 pg (29.0-33.0); MEAN CORPUSCULAR HGB CONC 35.1 g/dl (32.0-37.0); MEAN CORPUSCULAR VOLUME 94.9 fl (82.0-101.0); PLATELET COUNT 106 10^3/UL (140-415); RED BLOOD COUNT 1.95 10^6/ul (4.20-5.40); RED CELL DISTRIBUTION WIDTH 17.4 % (11.5-14.5)
[2017-08-29 06:56] LABS: WHITE BLOOD COUNT 5.9 10^3/ul (4.8-10.8)
[2017-08-29 07:16] LABS: POSITIVE DIFF @See below
[2017-08-29 07:18] LABS: HEMOGLOBIN 6.5 g/dl (12.0-16.0)
[2017-08-29 07:19] LABS: ADD MAN DIFF? YES
[2017-08-29 07:30] LABS: MAGNESIUM 1.3 mg/dl (1.7-2.5)
[2017-08-29 07:53] LABS: ALANINE AMINOTRANSFERASE 31 IU/L (13-69); ALBUMIN 2.3 g/dl (3.3-4.9); ALBUMIN/GLOBULIN RATIO 0.67; ALKALINE PHOSPHATASE 153 IU/L (42-121); ANION GAP 13 (8-16); ASPARTATE AMINO TRANSFERASE 42 IU/L (15-46); BILIRUBIN,INDIRECT 1.4 mg/dl (0-1.1); BILIRUBIN,TOTAL 2.7 mg/dl (0.2-1.3); BLOOD UREA NITROGEN 14 mg/dl (7-20); CALCIUM 8.8 mg/dl (8.4-10.2); CARBON DIOXIDE 17 mmol/L (21-31); CHLORIDE 106 mmol/L (97-110); CREATININE 1.44 mg/dl (0.44-1.00); GLUCOSE 163 mg/dl (70-220); POTASSIUM 3.4 mmol/L (3.5-5.1); SODIUM 133 mmol/L (135-144); TOTAL PROTEIN 5.7 g/dl (6.1-8.1)
[2017-08-29] MEDS: DOXYCYCLINE 100 MG in DEXTROSE 5% 250 ML IVPB ×2 (08:34→21:47)
[2017-08-29] MEDS: THIAMINE 100 MG TAB PO (08:35)
[2017-08-29] MEDS: LORATADINE 10 MG TAB PO (08:35)
[2017-08-29] MEDS: SPIRONOLACTONE 50 MG TAB PO (08:35)
[2017-08-29] MEDS: RIFAXIMIN 550 MG TAB PO ×2 (08:35→21:00)
[2017-08-29] MEDS: LACTOBACILLUS RHAMNOSUS CAP PO ×2 (08:35→21:00)
[2017-08-29] MEDS: FOLIC ACID 1 MG TAB PO (08:35)
[2017-08-29] MEDS: ZINC SULFATE 220 MG CAP PO (08:35)
[2017-08-29] MEDS: NYSTATIN 30 GM POWDER BTL TOP ×2 (08:36→21:03)
[2017-08-29 09:45] LABS: ANISOCYTOSIS 2+ (0-0); BAND NEUTROPHILS #M 0.7 10^3/ul (0.0-0.6); BAND NEUTROPHILS % (M) 12 % (0-4); BURR CELLS 1+ (0-0); EOSINOPHILS % (M) 2 % (0-7); LYMPHOCYTES #M 1.6 10^3/ul (0.8-2.9); LYMPHOCYTES % (M) 28 % (15-51); MONOCYTES % (M) 1 % (0-11); PLATELET ESTIMATE DECREASED; POIKILOCYTOSIS 2+ (0-0); POLYCHROMASIA 1+ (0-0); REACTIVE LYMPHOCYTES #M 0.1 10^3/ul (0.0-0.0); REACTIVE LYMPHOCYTES% (M) 3 % (0-0); SEG NEUT #M 3.2 10^3/ul (1.7-7.5); SEGMENTED NEUTROPHILS (M) % 54 % (39-77); SMUDGE%M 3 % (0-0)
[2017-08-29] MEDS: POTASSIUM CHLORIDE (SR) 20 MEQ TAB PO (12:25)
[2017-08-29] MEDS: MAGNESIUM SULFATE 4 GM/100 ML 100 ML IVPB (12:26)
[2017-08-29 18:21] LABS: IMMEDIATE SPIN CROSSMATCH 1 2
[2017-08-30] MEDS: LACTULOSE 30ML CUP PO ×7 (03:13→21:41)
[2017-08-30] MEDS: PANTOPRAZOLE (EC) 40 MG TAB PO (05:53)
[2017-08-30] MEDS: FUROSEMIDE 40 MG TAB PO (05:53)
[2017-08-30] MEDS: LEVOTHYROXINE 50 MCG TAB PO (06:00)
[2017-08-30 06:32] LABS: ADD MAN DIFF? NO
[2017-08-30 06:46] LABS: BASOPHILS % 0.3 % (0.0-2.0); EOSINOPHILS # 0.2 10^3/ul (0.0-0.5); EOSINOPHILS % 1.8 % (0.0-7.0); HEMATOCRIT 26.8 % (37.0-47.0); HEMOGLOBIN 9.7 g/dl (12.0-16.0); LYMPHOCYTES # 1.5 10^3/ul (0.8-2.9); LYMPHOCYTES % 15.7 % (15.0-51.0); MEAN CORPUSCULAR HEMOGLOBIN 33.2 pg (29.0-33.0); MEAN CORPUSCULAR HGB CONC 36.2 g/dl (32.0-37.0); MEAN CORPUSCULAR VOLUME 91.8 fl (82.0-101.0); MEAN PLATELET VOLUME 11.8 fl (7.4-10.4); MONOCYTE # 0.6 10^3/ul (0.3-0.9); MONOCYTES % 6.7 % (0.0-11.0); PLATELET COUNT 113 10^3/UL (140-415); RED BLOOD COUNT 2.92 10^6/ul (4.20-5.40); RED CELL DISTRIBUTION WIDTH 15.9 % (11.5-14.5)
[2017-08-30 06:46] LABS: WHITE BLOOD COUNT 9.3 10^3/ul (4.8-10.8)
[2017-08-30 06:51] LABS: POSITIVE DIFF @See below
[2017-08-30 07:25] LABS: ANION GAP 16 (8-16); BLOOD UREA NITROGEN 13 mg/dl (7-20); CALCIUM 8.5 mg/dl (8.4-10.2); CARBON DIOXIDE 15 mmol/L (21-31); CHLORIDE 107 mmol/L (97-110); CREATININE 1.29 mg/dl (0.44-1.00); GLUCOSE 136 mg/dl (70-220); MAGNESIUM 2.2 mg/dl (1.7-2.5); POTASSIUM 4.3 mmol/L (3.5-5.1); SODIUM 134 mmol/L (135-144)
[2017-08-30] MEDS: SPIRONOLACTONE 50 MG TAB PO (08:51)
[2017-08-30] MEDS: FOLIC ACID 1 MG TAB PO (08:51)
[2017-08-30] MEDS: LORATADINE 10 MG TAB PO (08:52)
[2017-08-30] MEDS: RIFAXIMIN 550 MG TAB PO ×2 (08:52→21:41)
[2017-08-30] MEDS: THIAMINE 100 MG TAB PO (08:52)
[2017-08-30] MEDS: ZINC SULFATE 220 MG CAP PO (08:52)
[2017-08-30] MEDS: LACTOBACILLUS RHAMNOSUS CAP PO ×2 (08:52→21:41)
[2017-08-30] MEDS: NYSTATIN 30 GM POWDER BTL TOP ×2 (08:56→21:42)
[2017-08-30] MEDS: DOXYCYCLINE 100 MG in DEXTROSE 5% 250 ML IVPB ×2 (10:48→21:00)
[2017-08-30] MEDS: PHYTONADIONE 10 MG/ML INJ SC (21:38)
[2017-08-30] MEDS: morphine 4 MG/ML VIAL IV (22:22)
[2017-08-31] MEDS: LACTULOSE 30ML CUP PO ×6 (01:00→22:25)
[2017-08-31] MEDS: PANTOPRAZOLE (EC) 40 MG TAB PO (06:14)
[2017-08-31] MEDS: FUROSEMIDE 40 MG TAB PO (06:14)
[2017-08-31] MEDS: LEVOTHYROXINE 50 MCG TAB PO (06:14)
[2017-08-31] MEDS: SPIRONOLACTONE 50 MG TAB PO (08:41)
[2017-08-31] MEDS: DOXYCYCLINE 100 MG in DEXTROSE 5% 250 ML IVPB ×2 (08:41→22:26)
[2017-08-31] MEDS: LACTOBACILLUS RHAMNOSUS CAP PO ×2 (08:41→22:25)
[2017-08-31] MEDS: LORATADINE 10 MG TAB PO (08:42)
[2017-08-31] MEDS: THIAMINE 100 MG TAB PO (08:42)
[2017-08-31] MEDS: ZINC SULFATE 220 MG CAP PO (08:42)
[2017-08-31] MEDS: FOLIC ACID 1 MG TAB PO (08:42)
[2017-08-31] MEDS: RIFAXIMIN 550 MG TAB PO ×2 (08:42→22:25)
[2017-08-31] MEDS: NYSTATIN 30 GM POWDER BTL TOP ×2 (08:42→22:28)
[2017-08-31] MEDS: IBUPROFEN 400 MG TAB PO (15:46)
[2017-09-01] MEDS: LACTULOSE 30ML CUP PO ×4 (01:47→09:07)
[2017-09-01] MEDS: PANTOPRAZOLE (EC) 40 MG TAB PO ×2 (06:00)
[2017-09-01] MEDS: FUROSEMIDE 40 MG TAB PO (06:03)
[2017-09-01] MEDS: LEVOTHYROXINE 50 MCG TAB PO (06:05)
[2017-09-01] MEDS: SPIRONOLACTONE 50 MG TAB PO (09:06)
[2017-09-01] MEDS: LORATADINE 10 MG TAB PO (09:06)
[2017-09-01] MEDS: DOXYCYCLINE 100 MG in DEXTROSE 5% 250 ML IVPB (09:06)
[2017-09-01] MEDS: THIAMINE 100 MG TAB PO (09:07)
[2017-09-01] MEDS: FOLIC ACID 1 MG TAB PO (09:07)
[2017-09-01] MEDS: RIFAXIMIN 550 MG TAB PO (09:07)
[2017-09-01] MEDS: ZINC SULFATE 220 MG CAP PO (09:07)
[2017-09-01] MEDS: NYSTATIN 30 GM POWDER BTL TOP (09:08)
[2017-09-01] MEDS: LACTOBACILLUS RHAMNOSUS CAP PO (09:16)
== END 2017-09-01 13:15 | disposition home health service (06) | DRG 441 ==
LOC: MS1 08-03 20:39 → ICU 08-08 15:55 → MS4 08-21 20:18 → MS2 08-23 18:51 → E/R 17:06 → MS4 20:31 → MS2 08-23 19:35 → ICU 07-25 20:25 → MS4 08-09 23:56
PROC: 4A033R1 Measurement of Arterial Saturation, Peripheral, Percutaneous Approach (ICD-10-PCS; 2017-07-24)
PROC: 4A00X4Z Measurement of Central Nervous Electrical Activity, External Approach (ICD-10-PCS; principal; 2017-07-26)
PROC: 02HV33Z Insertion of Infusion Device into Superior Vena Cava, Percutaneous Approach (ICD-10-PCS; 2017-07-26)
PROC: B54NZZA Ultrasonography of Left Upper Extremity Veins, Guidance (ICD-10-PCS; 2017-07-26)
PROC: 30233N1 Transfusion of Nonautologous Red Blood Cells into Peripheral Vein, Percutaneous Approach (ICD-10-PCS; 2017-08-13)
DX: K72.01 Acute and subacute hepatic failure with coma (principal); A41.51 Sepsis due to Escherichia coli [E. coli]; N17.0 Acute kidney failure with tubular necrosis; K85.90 Acute pancreatitis without necrosis or infection, unspecified; G92 Toxic encephalopathy; K86.3 Pseudocyst of pancreas; I42.9 Cardiomyopathy, unspecified; E87.0 Hyperosmolality and hypernatremia; N39.0 Urinary tract infection, site not specified; K76.6 Portal hypertension; D68.4 Acquired coagulation factor deficiency; L03.317 Cellulitis of buttock; L03.116 Cellulitis of left lower limb; L03.115 Cellulitis of right lower limb; K70.31 Alcoholic cirrhosis of liver with ascites; F15.10 Other stimulant abuse, uncomplicated; Z16.12 Extended spectrum beta lactamase (ESBL) resistance; Z51.5 Encounter for palliative care; E03.9 Hypothyroidism, unspecified; Z78.1 Physical restraint status; D63.8 Anemia in other chronic diseases classified elsewhere; Z22.322 Carrier or suspected carrier of Methicillin resistant Staphylococcus aureus; R19.7 Diarrhea, unspecified; E83.42 Hypomagnesemia; E87.6 Hypokalemia; F10.20 Alcohol dependence, uncomplicated; R33.9 Retention of urine, unspecified; R25.1 Tremor, unspecified; R21 Rash and other nonspecific skin eruption
CPT/HCPCS: 36430; 36569; 36600; 70450; 70551; 71010; 74176; 76937; 80048; 80053; 80202; 80307; 81001; 81003; 82040; 82140; 82306; 82533; 82565; 82607; 82803; 82962; 83605; 83690; 83735; 83930; 83935; 84075; 84100; 84155; 84295; 84300; 84439; 84443; 84460; 84481; 84484; 84520; 84703; 85014; 85018; 85025; 85610; 85730; 86592; 86644; 86703; 86788; 86789; 86850; 86900; 86901; 86920; 87040; 87075; 87081; 87086; 92526; 92610; 93005; 93306; 93971; 94770; 95819; 97110; 97116; 97162; 97530; 99285-25; J1940

== ENCOUNTER 2017-09-06 08:10 | Inpatient (IN) | payer OTHER ==
[2017-09-06 12:56] LABS: ADD MAN DIFF? NO
[2017-09-06 12:57] LABS: BASOPHILS % 0.6 % (0.0-2.0); EOSINOPHILS # 0.2 10^3/ul (0.0-0.5); EOSINOPHILS % 3.4 % (0.0-7.0); HEMATOCRIT 28.7 % (37.0-47.0); HEMOGLOBIN 9.9 g/dl (12.0-16.0); LYMPHOCYTES # 1.3 10^3/ul (0.8-2.9); MEAN CORPUSCULAR HEMOGLOBIN 32.1 pg (29.0-33.0); MEAN CORPUSCULAR HGB CONC 34.5 g/dl (32.0-37.0); MEAN CORPUSCULAR VOLUME 93.2 fl (82.0-101.0); MEAN PLATELET VOLUME 11.4 fl (7.4-10.4); MONOCYTE # 0.4 10^3/ul (0.3-0.9); MONOCYTES % 6.2 % (0.0-11.0); NEUTROPHIL # 4.7 10^3/ul (1.6-7.5); NEUTROPHILS % 70.4 % (39.0-77.0); PLATELET COUNT 141 10^3/UL (140-415); RED BLOOD COUNT 3.08 10^6/ul (4.20-5.40); RED CELL DISTRIBUTION WIDTH 16.3 % (11.5-14.5)
[2017-09-06 12:57] LABS: WHITE BLOOD COUNT 6.7 10^3/ul (4.8-10.8)
[2017-09-06] MEDS: LIDOCAINE/MYLANTA 40 ML BTL PO ×2 (12:59→13:08)
[2017-09-06] MEDS: ONDANSETRON 4 MG INJ IV (13:00)
[2017-09-06] MEDS: METOCLOPRAMIDE 10 MG INJ IV ×2 (13:00→13:08)
[2017-09-06] MEDS: morphine 2 MG INJ IV (13:00)
[2017-09-06 13:12] LABS: ADD UMIC YES; UR ASCORBIC ACID 40 mg/dL (NEGATIVE); UR BILIRUBIN (Dip) NEGATIVE (NEGATIVE); UR BLOOD (Dip) NEGATIVE (NEGATIVE); UR CLARITY CLEAR (CLEAR); UR COLOR AMBER (YELLOW); UR GLUCOSE (Dip) NEGATIVE (NEGATIVE); UR KETONES (Dip) NEGATIVE (NEGATIVE); UR LEUKOCYTE ESTERASE (Dip) 2+ Leu/ul (NEGATIVE); UR NITRITE (Dip) NEGATIVE (NEGATIVE); UR RBC 1 /HPF (0-5); UR SPECIFIC GRAVITY (Dip) 1.015 (1.003-1.030); UR SQUAMOUS EPITHELIAL CELL FEW /HPF (FEW); UR TOTAL PROTEIN (Dip) NEGATIVE (NEGATIVE); UR UROBILINOGEN (Dip) NEGATIVE (NEGATIVE); UR WBC 8 /HPF (0-5)
[2017-09-06 13:16] LABS: ALANINE AMINOTRANSFERASE 37 IU/L (13-69); ALBUMIN 3.1 g/dl (3.3-4.9); ALBUMIN/GLOBULIN RATIO 0.72; ALKALINE PHOSPHATASE 253 IU/L (42-121); ANION GAP 13 (8-16); ASPARTATE AMINO TRANSFERASE 59 IU/L (15-46); BILIRUBIN,INDIRECT 1.8 mg/dl (0-1.1); BILIRUBIN,TOTAL 3.7 mg/dl (0.2-1.3); BLOOD UREA NITROGEN 13 mg/dl (7-20); CALCIUM 9.1 mg/dl (8.4-10.2); CARBON DIOXIDE 16 mmol/L (21-31); CHLORIDE 114 mmol/L (97-110); CREATININE 1.56 mg/dl (0.44-1.00); GLUCOSE 146 mg/dl (70-220); LIPASE 52 U/L (23-300); POTASSIUM 3.9 mmol/L (3.5-5.1); SODIUM 139 mmol/L (135-144); TOTAL PROTEIN 7.4 g/dl (6.1-8.1)
[2017-09-06 13:22] LABS: LACTIC ACID 2.7 mmol/L (0.5-2.0)
[2017-09-06] MEDS: CEFTRIAXONE 1 GM/50 ML (PMX) 50 ML IVPB (14:16)
[2017-09-06 14:22] LABS: AMMONIA 108 umol/l (9-30)
[2017-09-06] MEDS: morphine 4 MG/ML VIAL IV (14:34)
[2017-09-06] MEDS ORDERED: ONDANSETRON 4 MG INJ IV (15:30)
[2017-09-06] MEDS: LACTULOSE 30ML CUP PO ×3 (15:30→21:41)
[2017-09-06] MEDS: ALBUMIN HUMAN 25% 100 ML IV (17:01)
[2017-09-06 18:10] LABS: INR 1.64; PROTIME 19.8 Sec (11.9-14.9); PT RATIO 1.5
[2017-09-06 18:11] LABS: PARTIAL THROMBOPLASTIN TIME 42.2 Sec (25.0-35.0)
[2017-09-06] MEDS: ACETAMINOPHEN 325 MG TAB PO (20:11)
[2017-09-06] MEDS: LORAZEPAM 2 MG INJ IV (20:13)
[2017-09-06] MEDS: PROPRANOLOL 10 MG TAB PO (20:55)
[2017-09-06] MEDS ORDERED: PROPRANOLOL 20 MG TAB PO (21:00)
[2017-09-06] MEDS: RIFAXIMIN 550 MG TAB PO (21:41)
[2017-09-07] MEDS: ALBUMIN HUMAN 25% 100 ML IV ×3 (00:43→11:55)
[2017-09-07] MEDS: morphine 2 MG INJ IV (05:53)
[2017-09-07] MEDS: LACTULOSE 30ML CUP PO ×2 (05:59→14:00)
[2017-09-07] MEDS: PANTOPRAZOLE (EC) 40 MG TAB PO (05:59)
[2017-09-07] MEDS: LEVOTHYROXINE 50 MCG TAB PO (06:04)
[2017-09-07 06:29] LABS: INR 2.07; PROTIME 23.8 Sec (11.9-14.9); PT RATIO 1.9
[2017-09-07 06:30] LABS: PARTIAL THROMBOPLASTIN TIME 44.7 Sec (25.0-35.0)
[2017-09-07 06:46] LABS: ANION GAP 13 (8-16); BLOOD UREA NITROGEN 11 mg/dl (7-20); CALCIUM 9.6 mg/dl (8.4-10.2); CARBON DIOXIDE 16 mmol/L (21-31); CHLORIDE 115 mmol/L (97-110); GLUCOSE 95 mg/dl (70-220); POTASSIUM 3.8 mmol/L (3.5-5.1); SODIUM 140 mmol/L (135-144)
[2017-09-07] MEDS: RIFAXIMIN 550 MG TAB PO ×2 (09:00→11:51)
[2017-09-07] MEDS: PROPRANOLOL 10 MG TAB PO ×2 (09:00→11:52)
[2017-09-07] MEDS: INFLUENZA VIRUS VACCINE 0.5 ML SYG IM* (12:00)
== END 2017-09-07 19:11 | disposition home or self-care (01) | DRG 433 ==
LOC: MS3 15:27 → E/R 08:10 → MS1 09-07 09:50
DX: K74.60 Unspecified cirrhosis of liver (principal); N17.9 Acute kidney failure, unspecified; R18.8 Other ascites; K72.90 Hepatic failure, unspecified without coma; B35.8 Other dermatophytoses; N18.2 Chronic kidney disease, stage 2 (mild)
CPT/HCPCS: 36415; 76705; 80048; 80053; 81001; 82140; 83605; 83690; 85025; 85610; 85730; 87086; 90686; 96374; 96375; 96376; 99285-25

== ENCOUNTER 2017-09-10 11:59 | Inpatient (IN) | payer OTHER ==
[2017-09-10 12:54] LABS: ADD MAN DIFF? NO
[2017-09-10 12:58] LABS: BASOPHILS % 0.2 % (0.0-2.0); EOSINOPHILS # 0.1 10^3/ul (0.0-0.5); EOSINOPHILS % 2.9 % (0.0-7.0); HEMATOCRIT 21.8 % (37.0-47.0); HEMOGLOBIN 7.6 g/dl (12.0-16.0); LYMPHOCYTES # 0.9 10^3/ul (0.8-2.9); LYMPHOCYTES % 19.4 % (15.0-51.0); MEAN CORPUSCULAR HEMOGLOBIN 32.5 pg (29.0-33.0); MEAN CORPUSCULAR HGB CONC 34.9 g/dl (32.0-37.0); MEAN CORPUSCULAR VOLUME 93.2 fl (82.0-101.0); MEAN PLATELET VOLUME 10.9 fl (7.4-10.4); MONOCYTE # 0.3 10^3/ul (0.3-0.9); MONOCYTES % 6.5 % (0.0-11.0); NEUTROPHIL # 3.2 10^3/ul (1.6-7.5); NEUTROPHILS % 70.6 % (39.0-77.0); PLATELET COUNT 109 10^3/UL (140-415); RED BLOOD COUNT 2.34 10^6/ul (4.20-5.40); RED CELL DISTRIBUTION WIDTH 16.1 % (11.5-14.5)
[2017-09-10 12:58] LABS: WHITE BLOOD COUNT 4.5 10^3/ul (4.8-10.8)
[2017-09-10 13:09] LABS: PROTIME 24.1 Sec (11.9-14.9); PT RATIO 1.9
[2017-09-10 13:12] LABS: AMMONIA 97 umol/l (9-30)
[2017-09-10 13:12] LABS: ALANINE AMINOTRANSFERASE 33 IU/L (13-69); ALBUMIN 2.9 g/dl (3.3-4.9); ALBUMIN/GLOBULIN RATIO 0.85; ALKALINE PHOSPHATASE 137 IU/L (42-121); ANION GAP 17 (8-16); ASPARTATE AMINO TRANSFERASE 34 IU/L (15-46); BILIRUBIN,INDIRECT 1.7 mg/dl (0-1.1); BLOOD UREA NITROGEN 12 mg/dl (7-20); CALCIUM 9.2 mg/dl (8.4-10.2); CARBON DIOXIDE 15 mmol/L (21-31); CHLORIDE 113 mmol/L (97-110); CREATININE 1.31 mg/dl (0.44-1.00); GLUCOSE 168 mg/dl (70-220); LIPASE 23 U/L (23-300); POTASSIUM 4.5 mmol/L (3.5-5.1); SODIUM 140 mmol/L (135-144); TOTAL PROTEIN 6.3 g/dl (6.1-8.1)
[2017-09-10 13:28] LABS: TROPONIN-I < 0.012 ng/ml (0.00-0.12)
[2017-09-10] MEDS: LACTULOSE 30ML CUP PO ×3 (14:03→22:13)
[2017-09-10] MEDS: IBUPROFEN 800 MG TAB PO (14:05)
[2017-09-10] MEDS: CLOTRIMAZOLE 1% 30 ML TOPICAL SOLN TOP (14:30)
[2017-09-10] MEDS ORDERED: ACETAMINOPHEN 325 MG TAB PO (14:30)
[2017-09-10] MEDS ORDERED: ONDANSETRON 4 MG INJ IV (14:30)
[2017-09-10] MEDS: PIPER-TAZO 3.375 GM IV (PMX) 100 ML IVPB ×3 (15:54→23:23)
[2017-09-10] MEDS: IVERMECTIN 3 MG TAB PO (18:20)
[2017-09-10] MEDS: RIFAXIMIN 550 MG TAB PO (20:48)
[2017-09-10] MEDS: PERMETHRIN 5% 60 GM CR TOP (20:49)
[2017-09-10] MEDS: DAPTOMYCIN 420 MG in SOD CHLORIDE 0.9% 100 ML IVPB (20:49)
[2017-09-10] MEDS: morphine 2 MG INJ IV (21:08)
[2017-09-11] MEDS: morphine 2 MG INJ IV ×3 (01:09→22:28)
[2017-09-11] MEDS: LACTULOSE 30ML CUP PO ×3 (05:37→22:28)
[2017-09-11] MEDS: PIPER-TAZO 3.375 GM IV (PMX) 100 ML IVPB ×2 (05:37→13:09)
[2017-09-11 06:14] LABS: ADD MAN DIFF? NO
[2017-09-11 06:26] LABS: HAAIG REFLEX REFLEX FILED
[2017-09-11] MEDS: LEVOTHYROXINE 50 MCG TAB PO (06:37)
[2017-09-11 06:48] LABS: CREATINE KINASE 79 IU/L (23-200)
[2017-09-11 07:00] LABS: ALANINE AMINOTRANSFERASE 32 IU/L (13-69); ALBUMIN 2.4 g/dl (3.3-4.9); ALBUMIN/GLOBULIN RATIO 0.77; ALKALINE PHOSPHATASE 122 IU/L (42-121); ANION GAP 13 (8-16); ASPARTATE AMINO TRANSFERASE 30 IU/L (15-46); BILIRUBIN,INDIRECT 1.2 mg/dl (0-1.1); BILIRUBIN,TOTAL 2.3 mg/dl (0.2-1.3); BLOOD UREA NITROGEN 12 mg/dl (7-20); CALCIUM 8.8 mg/dl (8.4-10.2); CARBON DIOXIDE 14 mmol/L (21-31); CHLORIDE 117 mmol/L (97-110); CREATININE 1.37 mg/dl (0.44-1.00); GLUCOSE 93 mg/dl (70-220); POTASSIUM 4.3 mmol/L (3.5-5.1); SODIUM 140 mmol/L (135-144); TOTAL PROTEIN 5.5 g/dl (6.1-8.1)
[2017-09-11 07:28] LABS: WHITE BLOOD COUNT 4.8 10^3/ul (4.8-10.8)
[2017-09-11 07:28] LABS: ABNORMAL IP MESSAGE 1; EOSINOPHILS # 0.2 10^3/ul (0.0-0.5); EOSINOPHILS % 4.6 % (0.0-7.0); HEMATOCRIT 20.4 % (37.0-47.0); HEMOGLOBIN 7.1 g/dl (12.0-16.0); LYMPHOCYTES # 1.1 10^3/ul (0.8-2.9); LYMPHOCYTES % 22.3 % (15.0-51.0); MEAN CORPUSCULAR HGB CONC 34.8 g/dl (32.0-37.0); MEAN CORPUSCULAR VOLUME 91.9 fl (82.0-101.0); MONOCYTE # 0.3 10^3/ul (0.3-0.9); MONOCYTES % 6.3 % (0.0-11.0); NEUTROPHIL # 3.2 10^3/ul (1.6-7.5); NEUTROPHILS % 66.4 % (39.0-77.0); PLATELET COUNT 95 10^3/UL (140-415); RED BLOOD COUNT 2.22 10^6/ul (4.20-5.40); RED CELL DISTRIBUTION WIDTH 16.1 % (11.5-14.5)
[2017-09-11 07:29] LABS: POSITIVE DIFF @See below
[2017-09-11 08:56] LABS: HEPATITIS B SURFACE ANTIGEN NEGATIVE (NEGATIVE)
[2017-09-11 09:15] LABS: HEPATITIS B CORE ANTIBODY NEGATIVE (NEGATIVE); HEPATITIS C VIRAL ANTIBODY NEGATIVE (NEGATIVE)
[2017-09-11] MEDS: FLUCONAZOLE 200 MG TAB PO (09:47)
[2017-09-11] MEDS: RIFAXIMIN 550 MG TAB PO ×2 (09:47→21:26)
[2017-09-11] MEDS: CLOTRIMAZOLE 1% 30 ML TOPICAL SOLN TOP (13:03)
[2017-09-11 13:14] LABS: AADO2 Arterial 5.2 mmHg (7.0-24.0); Allen Test ACCEPTAB; Arterial Base Excess -12.1 mmol/L (-3.0-3); Arterial COHb 0.3 % (0.0-3.0); Arterial Fraction of Oxyhgb 96.5 % (93.0-99.0); Arterial HCO3 13.9 mmol/L (22.0-26.0); Arterial MetHb 0.2 % (0.0-1.5); Arterial Total Hemglobin 8.2 g/dl (12.0-18.0); Arterial pCO2 31.8 mmhg (35-45); MODE ROOM AIR; Site Right Radial
[2017-09-11] MEDS: CLOTRIMAZOLE 1% 30 GM CR TOP ×2 (15:31→22:38)
[2017-09-11] MEDS: DAPTOMYCIN 420 MG in SOD CHLORIDE 0.9% 100 ML IVPB (17:35)
[2017-09-11] MEDS: CITRIC ACID/SODIUM CITRATE 15 ML CUP PO ×2 (17:35→21:26)
[2017-09-12] MEDS: morphine 2 MG INJ IV ×2 (03:59→10:03)
[2017-09-12] MEDS: LACTULOSE 30ML CUP PO ×3 (05:49→22:23)
[2017-09-12] MEDS: LEVOTHYROXINE 50 MCG TAB PO (06:19)
[2017-09-12 07:19] LABS: ADD UMIC YES; UR ASCORBIC ACID NEGATIVE (NEGATIVE); UR BACTERIA FEW /HPF (NONE SEEN); UR BILIRUBIN (Dip) NEGATIVE (NEGATIVE); UR BLOOD (Dip) 3+ mg/dL (NEGATIVE); UR BUDDING YEAST FEW /HPF (NONE SEEN); UR CLARITY CLOUDY (CLEAR); UR COLOR AMBER (YELLOW); UR GLUCOSE (Dip) NEGATIVE (NEGATIVE); UR KETONES (Dip) NEGATIVE (NEGATIVE); UR LEUKOCYTE ESTERASE (Dip) 3+ Leu/ul (NEGATIVE); UR MUCUS MODERATE /HPF (NONE SEEN); UR NITRITE (Dip) NEGATIVE (NEGATIVE); UR NONSQUAMOUS EPITHELIAL CELL 5 /HPF (NONE SEEN); UR RBC 15 /HPF (0-5); UR SPECIFIC GRAVITY (Dip) 1.019 (1.003-1.030); UR SQUAMOUS EPITHELIAL CELL MODERATE /HPF (FEW); UR TOTAL PROTEIN (Dip) 1+ mg/dl (NEGATIVE); UR UROBILINOGEN (Dip) NEGATIVE (NEGATIVE); UR WBC 35 /HPF (0-5)
[2017-09-12 08:02] LABS: AMPHETAMINE/METHAMPHETAMINE Negative (NEGATIVE)
[2017-09-12 08:04] LABS: BARBITURATES Negative (NEGATIVE); BENZODIAZEPINES Negative (NEGATIVE); CANNABINOIDS Negative (NEGATIVE); COCAINE Negative (NEGATIVE); OPIATES Positive (NEGATIVE)
[2017-09-12] MEDS: RIFAXIMIN 550 MG TAB PO ×2 (08:54→21:40)
[2017-09-12] MEDS: CITRIC ACID/SODIUM CITRATE 15 ML CUP PO ×3 (08:54→22:23)
[2017-09-12] MEDS: CLOTRIMAZOLE 1% 30 GM CR TOP ×2 (08:54→21:41)
[2017-09-12] MEDS: FLUCONAZOLE 200 MG TAB PO (08:55)
[2017-09-12] MEDS: DAPTOMYCIN 420 MG in SOD CHLORIDE 0.9% 100 ML IVPB (17:32)
[2017-09-12] MEDS: MUPIROCIN 2% 22 GM OINT TOP (21:40)
[2017-09-12] MEDS: ACETAMINOPHEN 500 MG TAB PO (22:23)
[2017-09-13] MEDS: LEVOTHYROXINE 50 MCG TAB PO (06:13)
[2017-09-13] MEDS: LACTULOSE 30ML CUP PO ×3 (06:13→22:27)
[2017-09-13 08:41] LABS: ABNORMAL IP MESSAGE 1; HEMATOCRIT 18.9 % (37.0-47.0); MEAN CORPUSCULAR HEMOGLOBIN 31.7 pg (29.0-33.0); MEAN CORPUSCULAR HGB CONC 34.9 g/dl (32.0-37.0); MEAN CORPUSCULAR VOLUME 90.9 fl (82.0-101.0); PLATELET COUNT 99 10^3/UL (140-415); RED BLOOD COUNT 2.08 10^6/ul (4.20-5.40); RED CELL DISTRIBUTION WIDTH 15.9 % (11.5-14.5)
[2017-09-13 08:41] LABS: WHITE BLOOD COUNT 3.8 10^3/ul (4.8-10.8)
[2017-09-13 08:42] LABS: POSITIVE DIFF @See below
[2017-09-13 08:46] LABS: ADD MAN DIFF? YES; HEMOGLOBIN 6.6 g/dl (12.0-16.0)
[2017-09-13] MEDS: RIFAXIMIN 550 MG TAB PO ×2 (08:56→21:43)
[2017-09-13] MEDS: FLUCONAZOLE 200 MG TAB PO (08:56)
[2017-09-13] MEDS: CITRIC ACID/SODIUM CITRATE 15 ML CUP PO ×3 (08:57→21:43)
[2017-09-13] MEDS: MUPIROCIN 2% 22 GM OINT TOP ×2 (08:59→21:44)
[2017-09-13] MEDS: CLOTRIMAZOLE 1% 30 GM CR TOP ×2 (09:00→21:44)
[2017-09-13 09:01] LABS: IRON 48 ug/dl (35-150)
[2017-09-13 09:06] LABS: ALANINE AMINOTRANSFERASE 52 IU/L (13-69); ALBUMIN 2.4 g/dl (3.3-4.9); ALKALINE PHOSPHATASE 133 IU/L (42-121); ANION GAP 15 (8-16); ASPARTATE AMINO TRANSFERASE 181 IU/L (15-46); BILIRUBIN,TOTAL 1.8 mg/dl (0.2-1.3); BLOOD UREA NITROGEN 11 mg/dl (7-20); CALCIUM 8.6 mg/dl (8.4-10.2); CARBON DIOXIDE 16 mmol/L (21-31); CHLORIDE 109 mmol/L (97-110); CREATININE 1.28 mg/dl (0.44-1.00); GLUCOSE 141 mg/dl (70-220); POTASSIUM 3.6 mmol/L (3.5-5.1); SODIUM 136 mmol/L (135-144); TOTAL PROTEIN 5.8 g/dl (6.1-8.1)
[2017-09-13 09:10] LABS: % IRON SATURATION 46 % SAT (22-52); TOTAL IRON BINDING CAPACITY 105 ug/dl (241-421)
[2017-09-13 10:24] LABS: ANISOCYTOSIS 2+ (0-0); BASOPHILS % (M) 1 % (0-2); EOSINOPHILS % (M) 3 % (0-7); HYPOCHROMASIA 1+ (0-0); LYMPHOCYTES % (M) 28 % (15-51); METAMYELOCYTES %M 1 % (0-0); MONOCYTE #M 0.1 10^3/ul (0.3-0.9); MONOCYTES % (M) 4 % (0-11); PLATELET ESTIMATE DECREASED; POIKILOCYTOSIS 3+ (0-0); SEGMENTED NEUTROPHILS (M) % 63 % (39-77); SMUDGE%M 7 % (0-0)
[2017-09-13] MEDS ORDERED: PERMETHRIN 5% 60 GM CR TOP (10:30)
[2017-09-13 11:06] LABS: AMMONIA 102 umol/l (9-30)
[2017-09-13 13:58] LABS: SODIUM,URINE RANDOM 22 mmol/L (30-90)
[2017-09-13 13:58] LABS: CREATININE,URINE RANDOM 116.03 mg/dl (20-320)
[2017-09-13] MEDS: morphine 2 MG INJ IV (14:12)
[2017-09-13 14:13] LABS: OCCULT BLOOD STOOL NEGATIVE (NEGATIVE)
[2017-09-13 14:15] LABS: IMMEDIATE SPIN CROSSMATCH 1 1
[2017-09-13] MEDS: SOD CHLORIDE 0.9% 250 ML IV* (14:15)
[2017-09-13 14:17] LABS: ALPHA 1 ANTITRYPSIN 71 mg/dL (83-199); CERULOPLASMIN 16 mg/dL (18-53)
[2017-09-13] MEDS: LORATADINE 10 MG TAB PO (14:40)
[2017-09-13] MEDS: CIPROFLOXACIN 500 MG TAB PO (14:40)
[2017-09-13 14:57] LABS: INR 2.67; PROTIME 29.2 Sec (11.9-14.9); PT RATIO 2.3
[2017-09-13] MEDS: DAPTOMYCIN 420 MG in SOD CHLORIDE 0.9% 100 ML IVPB (17:58)
[2017-09-13] MEDS: ACETAMINOPHEN 500 MG TAB PO (21:43)
[2017-09-14 01:36] LABS: PROTEIN, TOTAL 5.1 g/dL (6.1-8.1)
[2017-09-14] MEDS: morphine 2 MG INJ IV ×3 (03:39→21:59)
[2017-09-14] MEDS: CIPROFLOXACIN 500 MG TAB PO ×2 (06:09→17:48)
[2017-09-14] MEDS: LEVOTHYROXINE 50 MCG TAB PO (06:09)
[2017-09-14] MEDS: LACTULOSE 30ML CUP PO ×3 (06:09→21:59)
[2017-09-14 06:34] LABS: ADD MAN DIFF? NO
[2017-09-14 06:38] LABS: ABNORMAL IP MESSAGE 1; EOSINOPHILS # 0.1 10^3/ul (0.0-0.5); EOSINOPHILS % 2.7 % (0.0-7.0); HEMATOCRIT 22.2 % (37.0-47.0); HEMOGLOBIN 7.9 g/dl (12.0-16.0); LYMPHOCYTES # 1.4 10^3/ul (0.8-2.9); LYMPHOCYTES % 33.8 % (15.0-51.0); MEAN CORPUSCULAR HEMOGLOBIN 31.9 pg (29.0-33.0); MEAN CORPUSCULAR HGB CONC 35.6 g/dl (32.0-37.0); MEAN CORPUSCULAR VOLUME 89.5 fl (82.0-101.0); MONOCYTE # 0.4 10^3/ul (0.3-0.9); MONOCYTES % 9.9 % (0.0-11.0); NEUTROPHIL # 2.2 10^3/ul (1.6-7.5); NEUTROPHILS % 53.4 % (39.0-77.0); PLATELET COUNT 93 10^3/UL (140-415); RED BLOOD COUNT 2.48 10^6/ul (4.20-5.40); RED CELL DISTRIBUTION WIDTH 16.6 % (11.5-14.5)
[2017-09-14 06:38] LABS: WHITE BLOOD COUNT 4.1 10^3/ul (4.8-10.8)
[2017-09-14 06:40] LABS: POSITIVE DIFF @See below
[2017-09-14 07:15] LABS: ANION GAP 12 (8-16); BLOOD UREA NITROGEN 10 mg/dl (7-20); CALCIUM 8.6 mg/dl (8.4-10.2); CARBON DIOXIDE 21 mmol/L (21-31); CHLORIDE 110 mmol/L (97-110); CREATININE 1.14 mg/dl (0.44-1.00); GLUCOSE 147 mg/dl (70-220); POTASSIUM 3.6 mmol/L (3.5-5.1); SODIUM 139 mmol/L (135-144)
[2017-09-14] MEDS: LORATADINE 10 MG TAB PO (09:26)
[2017-09-14] MEDS: MUPIROCIN 2% 22 GM OINT TOP ×2 (09:26→22:05)
[2017-09-14] MEDS: CITRIC ACID/SODIUM CITRATE 15 ML CUP PO ×3 (09:26→21:59)
[2017-09-14] MEDS: FLUCONAZOLE 200 MG TAB PO (09:26)
[2017-09-14] MEDS: RIFAXIMIN 550 MG TAB PO ×2 (09:26→21:59)
[2017-09-14] MEDS: CLOTRIMAZOLE 1% 30 GM CR TOP ×2 (09:26→22:05)
[2017-09-14] MEDS: INFLUENZA VIRUS VACCINE 0.5 ML SYG IM* (13:03)
[2017-09-14] MEDS: METHYLPREDNISOLONE 40 MG INJ IV ×2 (13:04→21:59)
[2017-09-14] MEDS: DAPTOMYCIN 420 MG in SOD CHLORIDE 0.9% 100 ML IVPB (17:48)
[2017-09-14 23:09] LABS: ALBUMIN 2.8 g/dL (3.8-4.8); ALPHA-1-GLOBULINS 0.2 g/dL (0.2-0.3); ALPHA-2-GLOBULINS 0.3 g/dL (0.5-0.9); BETA 2 GLOBULINS 0.2 g/dL (0.2-0.5); BETA GLOBULINS 0.1 g/dL (0.4-0.6); GAMMA GLOBULINS 1.6 g/dL (0.8-1.7)
[2017-09-15 06:09] LABS: ADD MAN DIFF? NO
[2017-09-15 06:13] LABS: WHITE BLOOD COUNT 4.1 10^3/ul (4.8-10.8)
[2017-09-15 06:13] LABS: HEMATOCRIT 22.3 % (37.0-47.0); HEMOGLOBIN 7.7 g/dl (12.0-16.0); LYMPHOCYTES # 0.6 10^3/ul (0.8-2.9); LYMPHOCYTES % 15.2 % (15.0-51.0); MEAN CORPUSCULAR HEMOGLOBIN 30.9 pg (29.0-33.0); MEAN CORPUSCULAR HGB CONC 34.5 g/dl (32.0-37.0); MEAN CORPUSCULAR VOLUME 89.6 fl (82.0-101.0); MEAN PLATELET VOLUME 11.5 fl (7.4-10.4); MONOCYTE # 0.1 10^3/ul (0.3-0.9); MONOCYTES % 2.7 % (0.0-11.0); NEUTROPHIL # 3.3 10^3/ul (1.6-7.5); NEUTROPHILS % 81.4 % (39.0-77.0); PLATELET COUNT 101 10^3/UL (140-415); RED BLOOD COUNT 2.49 10^6/ul (4.20-5.40); RED CELL DISTRIBUTION WIDTH 16.6 % (11.5-14.5)
[2017-09-15] MEDS: CIPROFLOXACIN 500 MG TAB PO ×2 (06:14→17:08)
[2017-09-15] MEDS: LACTULOSE 30ML CUP PO ×3 (06:14→21:31)
[2017-09-15] MEDS: morphine 2 MG INJ IV ×4 (06:14→22:19)
[2017-09-15] MEDS: LEVOTHYROXINE 50 MCG TAB PO (06:16)
[2017-09-15 06:46] LABS: ANION GAP 18 (8-16); BLOOD UREA NITROGEN 9 mg/dl (7-20); CALCIUM 8.2 mg/dl (8.4-10.2); CARBON DIOXIDE 18 mmol/L (21-31); CHLORIDE 107 mmol/L (97-110); CREATININE 1.02 mg/dl (0.44-1.00); GLUCOSE 226 mg/dl (70-220); SODIUM 139 mmol/L (135-144)
[2017-09-15] MEDS: CLOTRIMAZOLE 1% 30 GM CR TOP ×2 (09:00→21:34)
[2017-09-15] MEDS: LORATADINE 10 MG TAB PO (09:18)
[2017-09-15] MEDS: METHYLPREDNISOLONE 40 MG INJ IV ×2 (09:18→21:32)
[2017-09-15] MEDS: FLUCONAZOLE 200 MG TAB PO (09:18)
[2017-09-15] MEDS: RIFAXIMIN 550 MG TAB PO ×2 (09:18→21:34)
[2017-09-15] MEDS: MUPIROCIN 2% 22 GM OINT TOP ×2 (09:19→21:35)
[2017-09-15] MEDS: CITRIC ACID/SODIUM CITRATE 15 ML CUP PO ×3 (09:19→21:31)
[2017-09-15 14:26] LABS: CREATININE, RANDOM URINE 129 mg/dL (20-320); PROCALCITONIN 0.16 ng/mL (<0.10); PROTEIN/CREATININE RATIO 504 mg/g creat (21-161)
[2017-09-15 16:36] LABS: CHLORIDE, RANDOM URINE <20 mmol/L (32-290)
[2017-09-16] MEDS: CIPROFLOXACIN 500 MG TAB PO ×2 (06:19→18:08)
[2017-09-16] MEDS: LACTULOSE 30ML CUP PO ×3 (06:19→21:18)
[2017-09-16] MEDS: morphine 2 MG INJ IV ×3 (06:20→22:19)
[2017-09-16] MEDS: LEVOTHYROXINE 50 MCG TAB PO (07:30)
[2017-09-16 07:57] LABS: ADD MAN DIFF? NO
[2017-09-16 08:08] LABS: WHITE BLOOD COUNT 6.5 10^3/ul (4.8-10.8)
[2017-09-16 08:08] LABS: BASOPHILS % 0.2 % (0.0-2.0); HEMATOCRIT 22.9 % (37.0-47.0); HEMOGLOBIN 7.9 g/dl (12.0-16.0); LYMPHOCYTES # 0.7 10^3/ul (0.8-2.9); LYMPHOCYTES % 11.3 % (15.0-51.0); MEAN CORPUSCULAR HEMOGLOBIN 31.3 pg (29.0-33.0); MEAN CORPUSCULAR HGB CONC 34.5 g/dl (32.0-37.0); MEAN CORPUSCULAR VOLUME 90.9 fl (82.0-101.0); MEAN PLATELET VOLUME 11.6 fl (7.4-10.4); MONOCYTE # 0.4 10^3/ul (0.3-0.9); MONOCYTES % 6.6 % (0.0-11.0); NEUTROPHIL # 5.3 10^3/ul (1.6-7.5); NEUTROPHILS % 80.8 % (39.0-77.0); RED BLOOD COUNT 2.52 10^6/ul (4.20-5.40)
[2017-09-16 08:09] LABS: PLATELET COUNT 133 10^3/UL (140-415); POSITIVE DIFF @See below
[2017-09-16 08:29] LABS: ANION GAP 19 (8-16); BLOOD UREA NITROGEN 10 mg/dl (7-20); CALCIUM 8.4 mg/dl (8.4-10.2); CARBON DIOXIDE 19 mmol/L (21-31); CHLORIDE 106 mmol/L (97-110); CREATININE 1.12 mg/dl (0.44-1.00); GLUCOSE 338 mg/dl (70-220); SODIUM 140 mmol/L (135-144)
[2017-09-16] MEDS: MUPIROCIN 2% 22 GM OINT TOP ×2 (09:20→21:04)
[2017-09-16] MEDS: CLOTRIMAZOLE 1% 30 GM CR TOP ×2 (09:20→21:04)
[2017-09-16] MEDS: METHYLPREDNISOLONE 40 MG INJ IV (09:20)
[2017-09-16] MEDS: FLUCONAZOLE 200 MG TAB PO (09:20)
[2017-09-16] MEDS: LORATADINE 10 MG TAB PO (09:20)
[2017-09-16] MEDS: CITRIC ACID/SODIUM CITRATE 15 ML CUP PO ×3 (09:20→21:03)
[2017-09-16] MEDS: RIFAXIMIN 550 MG TAB PO ×2 (09:20→21:03)
[2017-09-16 09:53] LABS: C-REACTIVE PROTEIN 1.4 mg/dl (0.0-0.9)
[2017-09-16 10:24] LABS: COMPLEMENT C3 40 mg/dl (88-165)
[2017-09-16 10:25] LABS: COMPLEMENT C4 < 8 mg/dl (14-44)
[2017-09-16 14:42] LABS: RHEUMATOID FACTOR NEGATIVE (NEGATIVE)
[2017-09-17 05:35] LABS: ADD MAN DIFF? NO
[2017-09-17 05:59] LABS: LYMPHOCYTES # 0.8 10^3/ul (0.8-2.9); LYMPHOCYTES % 15.5 % (15.0-51.0); MEAN CORPUSCULAR HEMOGLOBIN 31.1 pg (29.0-33.0); MEAN CORPUSCULAR VOLUME 88.9 fl (82.0-101.0); MEAN PLATELET VOLUME 11.4 fl (7.4-10.4); MONOCYTE # 0.5 10^3/ul (0.3-0.9); MONOCYTES % 9.7 % (0.0-11.0); NEUTROPHIL # 3.6 10^3/ul (1.6-7.5); PLATELET COUNT 116 10^3/UL (140-415); RED BLOOD COUNT 2.25 10^6/ul (4.20-5.40); RED CELL DISTRIBUTION WIDTH 17.2 % (11.5-14.5)
[2017-09-17] MEDS: LEVOTHYROXINE 50 MCG TAB PO (06:33)
[2017-09-17 06:34] LABS: ANION GAP 16 (8-16); BLOOD UREA NITROGEN 13 mg/dl (7-20); CALCIUM 8.3 mg/dl (8.4-10.2); CARBON DIOXIDE 22 mmol/L (21-31); CHLORIDE 106 mmol/L (97-110); CREATININE 1.31 mg/dl (0.44-1.00); GLUCOSE 340 mg/dl (70-220); POTASSIUM 3.8 mmol/L (3.5-5.1); SODIUM 140 mmol/L (135-144)
[2017-09-17] MEDS: CIPROFLOXACIN 500 MG TAB PO ×2 (06:34→17:51)
[2017-09-17] MEDS: LACTULOSE 30ML CUP PO ×3 (06:34→22:01)
[2017-09-17] MEDS: morphine 2 MG INJ IV ×3 (09:22→18:13)
[2017-09-17] MEDS: CITRIC ACID/SODIUM CITRATE 15 ML CUP PO ×3 (09:22→22:01)
[2017-09-17] MEDS: MUPIROCIN 2% 22 GM OINT TOP ×2 (09:23→22:03)
[2017-09-17] MEDS: FLUCONAZOLE 200 MG TAB PO (09:23)
[2017-09-17] MEDS: CLOTRIMAZOLE 1% 30 GM CR TOP ×2 (09:23→22:04)
[2017-09-17] MEDS: RIFAXIMIN 550 MG TAB PO ×2 (09:23→22:01)
[2017-09-17] MEDS: predniSONE 20 MG TAB PO (09:23)
[2017-09-17] MEDS: LORATADINE 10 MG TAB PO (09:24)
[2017-09-17] MEDS: IVERMECTIN 3 MG TAB PO (17:51)
[2017-09-17] MEDS: PERMETHRIN 5% 60 GM CR TOP (17:56)
[2017-09-18] MEDS: morphine 2 MG INJ IV ×4 (01:45→17:36)
[2017-09-18 06:09] LABS: ADD MAN DIFF? NO
[2017-09-18 06:15] LABS: HEMATOCRIT 21.1 % (37.0-47.0); HEMOGLOBIN 7.1 g/dl (12.0-16.0); LYMPHOCYTES # 0.7 10^3/ul (0.8-2.9); LYMPHOCYTES % 13.3 % (15.0-51.0); MEAN CORPUSCULAR HEMOGLOBIN 30.5 pg (29.0-33.0); MEAN CORPUSCULAR HGB CONC 33.6 g/dl (32.0-37.0); MEAN CORPUSCULAR VOLUME 90.6 fl (82.0-101.0); MONOCYTE # 0.6 10^3/ul (0.3-0.9); MONOCYTES % 11.5 % (0.0-11.0); NEUTROPHIL # 3.9 10^3/ul (1.6-7.5); NEUTROPHILS % 71.5 % (39.0-77.0); NUCLEATED RED BLOOD CELLS% 0.6 /100WBC (0.0-0.0); PLATELET COUNT 119 10^3/UL (140-415); RED BLOOD COUNT 2.33 10^6/ul (4.20-5.40); RED CELL DISTRIBUTION WIDTH 17.8 % (11.5-14.5)
[2017-09-18 06:15] LABS: WHITE BLOOD COUNT 5.4 10^3/ul (4.8-10.8)
[2017-09-18] MEDS: LACTULOSE 30ML CUP PO ×3 (06:47→22:04)
[2017-09-18] MEDS: CIPROFLOXACIN 500 MG TAB PO ×2 (06:47→17:35)
[2017-09-18] MEDS: LEVOTHYROXINE 50 MCG TAB PO (06:47)
[2017-09-18 07:47] LABS: ANION GAP 15 (8-16); BLOOD UREA NITROGEN 15 mg/dl (7-20); CALCIUM 8.4 mg/dl (8.4-10.2); CARBON DIOXIDE 21 mmol/L (21-31); CHLORIDE 105 mmol/L (97-110); CREATININE 1.47 mg/dl (0.44-1.00); POTASSIUM 3.7 mmol/L (3.5-5.1); SODIUM 137 mmol/L (135-144)
[2017-09-18 07:49] LABS: GLUCOSE 448 mg/dl (70-220); MAGNESIUM 1.7 mg/dl (1.7-2.5)
[2017-09-18 08:49] LABS: HEMOGLOBIN A1C 6.8 % (0-5.9)
[2017-09-18] MEDS ORDERED: GLUCOSE GEL 15 GRAM TUBE BUCCAL (09:00)
[2017-09-18] MEDS ORDERED: GLUCOSE GEL 15 GRAM TUBE PO ×2 (09:00)
[2017-09-18] MEDS ORDERED: DEXTROSE 50% 50 ML SYRINGE IV ×2 (09:00)
[2017-09-18] MEDS ORDERED: GLUCAGON 1 MG INJ IM (09:00)
[2017-09-18] MEDS: INSULIN GLARGINE [LANtus] 3 ML PEN SC (09:43)
[2017-09-18] MEDS: INSULIN ASPART [NOVOLOG] 3 ML PEN SC ×7 (09:44→20:44)
[2017-09-18] MEDS: ENOXAPARIN 30 MG/0.3 ML SYG SC (09:45)
[2017-09-18] MEDS: FLUCONAZOLE 200 MG TAB PO (09:46)
[2017-09-18] MEDS: predniSONE 20 MG TAB PO (09:46)
[2017-09-18] MEDS: RIFAXIMIN 550 MG TAB PO ×2 (09:46→20:38)
[2017-09-18] MEDS: LORATADINE 10 MG TAB PO (09:46)
[2017-09-18] MEDS: CITRIC ACID/SODIUM CITRATE 15 ML CUP PO ×3 (09:46→20:38)
[2017-09-18] MEDS: CLOTRIMAZOLE 1% 30 GM CR TOP ×2 (09:47→20:38)
[2017-09-18] MEDS: MUPIROCIN 2% 22 GM OINT TOP ×2 (09:47→20:38)
[2017-09-18] MEDS ORDERED: INSULIN GLARGINE [LANtus] 3 ML PEN SC (10:00)
[2017-09-18] MEDS ORDERED: INSULIN ASPART [NOVOLOG] 3 ML PEN SC ×2 (11:30→12:00)
[2017-09-18] MEDS ORDERED: SOD CHLORIDE 0.9% 1,000 ML IV (15:00)
[2017-09-19] MEDS: morphine 2 MG INJ IV ×3 (00:46→13:21)
[2017-09-19] MEDS: ACCU-CHEK XX (02:00)
[2017-09-19] MEDS: LEVOTHYROXINE 50 MCG TAB PO (06:29)
[2017-09-19] MEDS: LACTULOSE 30ML CUP PO ×3 (06:29→22:16)
[2017-09-19] MEDS: CIPROFLOXACIN 500 MG TAB PO (06:29)
[2017-09-19 06:43] LABS: WHITE BLOOD COUNT 7.7 10^3/ul (4.8-10.8)
[2017-09-19 06:43] LABS: HEMATOCRIT 21.9 % (37.0-47.0); HEMOGLOBIN 7.6 g/dl (12.0-16.0); MEAN CORPUSCULAR HEMOGLOBIN 31.3 pg (29.0-33.0); MEAN CORPUSCULAR HGB CONC 34.7 g/dl (32.0-37.0); MEAN CORPUSCULAR VOLUME 90.1 fl (82.0-101.0); MEAN PLATELET VOLUME 10.6 fl (7.4-10.4); NUCLEATED RED BLOOD CELLS% 0.5 /100WBC (0.0-0.0); PLATELET COUNT 115 10^3/UL (140-415); RED BLOOD COUNT 2.43 10^6/ul (4.20-5.40); RED CELL DISTRIBUTION WIDTH 18.1 % (11.5-14.5)
[2017-09-19 06:53] LABS: ALANINE AMINOTRANSFERASE 74 IU/L (13-69); ALBUMIN 2.3 g/dl (3.3-4.9); ALBUMIN/GLOBULIN RATIO 0.71; ALKALINE PHOSPHATASE 127 IU/L (42-121); ANION GAP 12 (8-16); ASPARTATE AMINO TRANSFERASE 49 IU/L (15-46); BILIRUBIN,INDIRECT 0.8 mg/dl (0-1.1); BILIRUBIN,TOTAL 0.9 mg/dl (0.2-1.3); BLOOD UREA NITROGEN 16 mg/dl (7-20); CARBON DIOXIDE 27 mmol/L (21-31); CHLORIDE 104 mmol/L (97-110); CREATININE 1.58 mg/dl (0.44-1.00); GLUCOSE 245 mg/dl (70-220); MAGNESIUM 1.7 mg/dl (1.7-2.5); PHOSPHORUS 3.3 mg/dl (2.5-4.9); POTASSIUM 3.8 mmol/L (3.5-5.1); SODIUM 139 mmol/L (135-144); TOTAL PROTEIN 5.5 g/dl (6.1-8.1)
[2017-09-19 07:03] LABS: ADD MAN DIFF? YES; POSITIVE DIFF @See below
[2017-09-19] MEDS: FLUCONAZOLE 200 MG TAB PO (09:22)
[2017-09-19] MEDS: CITRIC ACID/SODIUM CITRATE 15 ML CUP PO ×3 (09:22→20:47)
[2017-09-19] MEDS: predniSONE 20 MG TAB PO (09:23)
[2017-09-19] MEDS: RIFAXIMIN 550 MG TAB PO ×2 (09:23→20:47)
[2017-09-19] MEDS: LORATADINE 10 MG TAB PO (09:23)
[2017-09-19] MEDS: MUPIROCIN 2% 22 GM OINT TOP ×2 (09:24→20:48)
[2017-09-19] MEDS: CLOTRIMAZOLE 1% 30 GM CR TOP ×2 (09:24→20:48)
[2017-09-19] MEDS: ENOXAPARIN 30 MG/0.3 ML SYG SC (09:30)
[2017-09-19] MEDS: INSULIN ASPART [NOVOLOG] 3 ML PEN SC ×7 (09:30→20:53)
[2017-09-19] MEDS: INSULIN GLARGINE [LANtus] 3 ML PEN SC (09:30)
[2017-09-19 10:15] LABS: ANISOCYTOSIS 2+ (0-0); BAND NEUTROPHILS #M 0.2 10^3/ul (0.0-0.6); BAND NEUTROPHILS % (M) 3 % (0-4); BURR CELLS 2+ (0-0); GIANT THROMBO% (M) 1 % (0-0); HYPOCHROMASIA 1+ (0-0); LYMPHOCYTES #M 1.3 10^3/ul (0.8-2.9); LYMPHOCYTES % (M) 17 % (15-51); MONOCYTE #M 0.2 10^3/ul (0.3-0.9); MONOCYTES % (M) 3 % (0-11); PLATELET ESTIMATE DECREASED; POIKILOCYTOSIS 2+ (0-0); SEG NEUT #M 5.9 10^3/ul (1.7-7.5); SEGMENTED NEUTROPHILS (M) % 77 % (39-77); TARGET CELLS 1+ (0-0)
[2017-09-19 11:04] LABS: AMMONIA 37 umol/l (9-30)
[2017-09-19 13:21] LABS: ANA SCREEN POSITIVE (NEGATIVE)
[2017-09-19 14:52] LABS: ANA PATTERN NUCLEOLAR
[2017-09-19] MEDS: traMADol 50 MG TAB PO (18:35)
[2017-09-20] MEDS: traMADol 50 MG TAB PO ×3 (00:07→20:18)
[2017-09-20] MEDS: ACCU-CHEK XX (02:00)
[2017-09-20] MEDS: INSULIN ASPART [NOVOLOG] 3 ML PEN SC ×8 (02:19→20:18)
[2017-09-20] MEDS: LACTULOSE 30ML CUP PO ×3 (06:44→22:37)
[2017-09-20] MEDS: LEVOTHYROXINE 50 MCG TAB PO (06:44)
[2017-09-20] MEDS: INSULIN GLARGINE [LANtus] 3 ML PEN SC (08:24)
[2017-09-20] MEDS: predniSONE 20 MG TAB PO (08:25)
[2017-09-20] MEDS: LORATADINE 10 MG TAB PO (08:25)
[2017-09-20] MEDS: CITRIC ACID/SODIUM CITRATE 15 ML CUP PO ×3 (08:25→20:17)
[2017-09-20] MEDS: ENOXAPARIN 30 MG/0.3 ML SYG SC (08:25)
[2017-09-20] MEDS: RIFAXIMIN 550 MG TAB PO ×2 (08:25→20:18)
[2017-09-20] MEDS: MUPIROCIN 2% 22 GM OINT TOP ×2 (08:26→20:20)
[2017-09-20] MEDS: CLOTRIMAZOLE 1% 30 GM CR TOP ×2 (08:26→20:20)
[2017-09-20] MEDS: HYDROCODONE/APAP (5/325) TAB PO (11:50)
[2017-09-20 13:27] LABS: ANCA SCREEN P-ANCA POS (NEGATIVE)
[2017-09-21] MEDS: ACCU-CHEK XX (02:00)
[2017-09-21] MEDS: traMADol 50 MG TAB PO ×2 (02:07→09:11)
[2017-09-21] MEDS: LEVOTHYROXINE 50 MCG TAB PO (06:51)
[2017-09-21] MEDS: LACTULOSE 30ML CUP PO ×2 (06:51→13:39)
[2017-09-21 07:14] LABS: ADD MAN DIFF? NO
[2017-09-21 07:20] LABS: BASOPHILS % 0.1 % (0.0-2.0); EOSINOPHILS # 0.2 10^3/ul (0.0-0.5); EOSINOPHILS % 1.5 % (0.0-7.0); HEMATOCRIT 23.3 % (37.0-47.0); LYMPHOCYTES # 1.8 10^3/ul (0.8-2.9); LYMPHOCYTES % 17.2 % (15.0-51.0); MEAN CORPUSCULAR HEMOGLOBIN 30.9 pg (29.0-33.0); MEAN CORPUSCULAR HGB CONC 34.3 g/dl (32.0-37.0); MEAN PLATELET VOLUME 11.3 fl (7.4-10.4); MONOCYTE # 0.3 10^3/ul (0.3-0.9); MONOCYTES % 2.5 % (0.0-11.0); NEUTROPHIL # 8.1 10^3/ul (1.6-7.5); NEUTROPHILS % 75.7 % (39.0-77.0); PLATELET COUNT 120 10^3/UL (140-415); RED BLOOD COUNT 2.59 10^6/ul (4.20-5.40); RED CELL DISTRIBUTION WIDTH 19.1 % (11.5-14.5)
[2017-09-21 07:20] LABS: WHITE BLOOD COUNT 10.7 10^3/ul (4.8-10.8)
[2017-09-21 07:40] LABS: ALANINE AMINOTRANSFERASE 63 IU/L (13-69); ALBUMIN 2.1 g/dl (3.3-4.9); ALBUMIN/GLOBULIN RATIO 0.65; ALKALINE PHOSPHATASE 121 IU/L (42-121); ANION GAP 10 (8-16); ASPARTATE AMINO TRANSFERASE 40 IU/L (15-46); BILIRUBIN,INDIRECT 1.2 mg/dl (0-1.1); BILIRUBIN,TOTAL 1.5 mg/dl (0.2-1.3); BLOOD UREA NITROGEN 18 mg/dl (7-20); CALCIUM 8.7 mg/dl (8.4-10.2); CARBON DIOXIDE 27 mmol/L (21-31); CHLORIDE 104 mmol/L (97-110); CREATININE 1.62 mg/dl (0.44-1.00); GLUCOSE 84 mg/dl (70-220); POTASSIUM 3.6 mmol/L (3.5-5.1); SODIUM 137 mmol/L (135-144); TOTAL PROTEIN 5.3 g/dl (6.1-8.1)
[2017-09-21] MEDS: INSULIN ASPART [NOVOLOG] 3 ML PEN SC ×3 (08:00→12:16)
[2017-09-21] MEDS: RIFAXIMIN 550 MG TAB PO (08:40)
[2017-09-21] MEDS: predniSONE 20 MG TAB PO (08:40)
[2017-09-21] MEDS: LORATADINE 10 MG TAB PO (08:40)
[2017-09-21] MEDS: MUPIROCIN 2% 22 GM OINT TOP (08:41)
[2017-09-21] MEDS: ENOXAPARIN 30 MG/0.3 ML SYG SC (08:43)
[2017-09-21] MEDS: CITRIC ACID/SODIUM CITRATE 15 ML CUP PO ×2 (09:10→12:15)
[2017-09-21] MEDS: INSULIN GLARGINE [LANtus] 3 ML PEN SC (09:14)
[2017-09-21 10:04] LABS: AMMONIA 27 umol/l (9-30)
[2017-09-21] MEDS: CLOTRIMAZOLE 1% 30 GM CR TOP (13:39)
[2017-09-22] MEDS ORDERED: INSULIN GLARGINE [LANtus] 3 ML PEN SC (08:00)
[2017-09-22] MEDS ORDERED: predniSONE 10 MG TAB PO (09:00)
== END 2017-09-21 16:55 | disposition home or self-care (01) | DRG 602 ==
LOC: E/R 11:59 → PP2 14:25
PROC: 30233N1 Transfusion of Nonautologous Red Blood Cells into Peripheral Vein, Percutaneous Approach (ICD-10-PCS; principal; 2017-09-13)
DX: L03.90 Cellulitis, unspecified (principal); K72.00 Acute and subacute hepatic failure without coma; D61.818 Other pancytopenia; I42.8 Other cardiomyopathies; E87.2 Acidosis; N17.9 Acute kidney failure, unspecified; N18.3 Chronic kidney disease, stage 3 (moderate); B35.3 Tinea pedis; N39.0 Urinary tract infection, site not specified; K70.30 Alcoholic cirrhosis of liver without ascites; B86 Scabies; B35.4 Tinea corporis; B95.2 Enterococcus as the cause of diseases classified elsewhere; D63.8 Anemia in other chronic diseases classified elsewhere; F10.20 Alcohol dependence, uncomplicated; R73.9 Hyperglycemia, unspecified; Z22.322 Carrier or suspected carrier of Methicillin resistant Staphylococcus aureus
CPT/HCPCS: 36415; 36430; 36600; 71045; 80048; 80053; 80307; 81001; 82103; 82140; 82270; 82310; 82390; 82436; 82550; 82570; 82728; 82803; 82962; 83036; 83540; 83690; 83735; 84100; 84133; 84145; 84155; 84156; 84165; 84166; 84300; 84484; 85025; 85610; 85651; 85730; 86021; 86038; 86140; 86160; 86320; 86325; 86430; 86704; 86709; 86803; 86850; 86900; 86901; 86920; 87040; 87081; 87086; 87340; 90686; 93005; 96365; 96366; 97163; 99291-25

== ENCOUNTER 2017-12-07 13:20 | Inpatient (IN) | payer OTHER ==
[2017-12-07] MEDS ORDERED: DOCUSATE SODIUM 100 MG CAP PO (15:30)
[2017-12-07] MEDS ORDERED: NACL 0.9% 3 ML SYG IV (15:30)
[2017-12-07 17:45] LABS: ADD MAN DIFF? NO
[2017-12-07 17:48] LABS: WHITE BLOOD COUNT 5.2 10^3/ul (4.8-10.8)
[2017-12-07 17:48] LABS: ABNORMAL IP MESSAGE 1; HEMATOCRIT 31.3 % (37.0-47.0); HEMOGLOBIN 10.2 g/dl (12.0-16.0); LYMPHOCYTES # 0.5 10^3/ul (0.8-2.9); LYMPHOCYTES % 9.4 % (15.0-51.0); MEAN CORPUSCULAR HEMOGLOBIN 30.3 pg (29.0-33.0); MEAN CORPUSCULAR HGB CONC 32.6 g/dl (32.0-37.0); MEAN CORPUSCULAR VOLUME 92.9 fl (82.0-101.0); MEAN PLATELET VOLUME 10.6 fl (7.4-10.4); MONOCYTE # 0.2 10^3/ul (0.3-0.9); MONOCYTES % 4.2 % (0.0-11.0); NEUTROPHIL # 4.4 10^3/ul (1.6-7.5); NEUTROPHILS % 85.2 % (39.0-77.0); PLATELET COUNT 84 10^3/UL (140-415); RED BLOOD COUNT 3.37 10^6/ul (4.20-5.40); RED CELL DISTRIBUTION WIDTH 18.4 % (11.5-14.5)
[2017-12-07 17:52] LABS: POSITIVE DIFF @See below
[2017-12-07 18:08] LABS: ALANINE AMINOTRANSFERASE 28 IU/L (13-69); ALBUMIN 2.4 g/dl (3.3-4.9); ALBUMIN/GLOBULIN RATIO 0.82; ALKALINE PHOSPHATASE 89 IU/L (42-121); ANION GAP 17 (8-16); ASPARTATE AMINO TRANSFERASE 40 IU/L (15-46); BILIRUBIN,INDIRECT 0.7 mg/dl (0-1.1); BILIRUBIN,TOTAL 1.1 mg/dl (0.2-1.3); BLOOD UREA NITROGEN 36 mg/dl (7-20); CALCIUM 8.8 mg/dl (8.4-10.2); CARBON DIOXIDE 19 mmol/L (21-31); CHLORIDE 101 mmol/L (97-110); POTASSIUM 3.6 mmol/L (3.5-5.1); SODIUM 133 mmol/L (135-144); TOTAL PROTEIN 5.3 g/dl (6.1-8.1)
[2017-12-07 18:15] LABS: GLUCOSE 492 mg/dl (70-220)
[2017-12-07] MEDS ORDERED: GLUCAGON 1 MG INJ IM (19:30)
[2017-12-07] MEDS ORDERED: DEXTROSE 50% 50 ML SYRINGE IV ×2 (19:30)
[2017-12-07] MEDS ORDERED: GLUCOSE GEL 15 GRAM TUBE PO ×2 (19:30)
[2017-12-07] MEDS ORDERED: GLUCOSE GEL 15 GRAM TUBE BUCCAL (19:30)
[2017-12-07] MEDS ORDERED: INSULIN GLARGINE [LANtus] 3 ML PEN SC (20:00)
[2017-12-07] MEDS: morphine LIQ (10 MG/5 ML) CUP PO (21:09)
[2017-12-07] MEDS: RIFAXIMIN 550 MG TAB PO (21:10)
[2017-12-07] MEDS: LACTULOSE 30ML CUP PO (21:10)
[2017-12-07] MEDS: INSULIN ASPART [NOVOLOG] 3 ML PEN SC (21:15)
[2017-12-07] MEDS: INSULIN GLARGINE [LANtus] 3 ML PEN SC (21:16)
[2017-12-08] MEDS: INSULIN ASPART [NOVOLOG] 3 ML PEN SC ×8 (00:37→22:06)
[2017-12-08] MEDS ORDERED: ACCU-CHEK XX (02:00)
[2017-12-08] MEDS: ACCU-CHEK XX (02:00)
[2017-12-08] MEDS: morphine LIQ (10 MG/5 ML) CUP PO ×6 (02:35→22:06)
[2017-12-08 06:54] LABS: ADD MAN DIFF? NO
[2017-12-08 06:59] LABS: WHITE BLOOD COUNT 7.7 10^3/ul (4.8-10.8)
[2017-12-08 06:59] LABS: ABNORMAL IP MESSAGE 1; BASOPHILS % 0.1 % (0.0-2.0); HEMATOCRIT 31.8 % (37.0-47.0); HEMOGLOBIN 10.4 g/dl (12.0-16.0); LYMPHOCYTES # 0.6 10^3/ul (0.8-2.9); LYMPHOCYTES % 8.2 % (15.0-51.0); MEAN CORPUSCULAR HEMOGLOBIN 29.8 pg (29.0-33.0); MEAN CORPUSCULAR HGB CONC 32.7 g/dl (32.0-37.0); MEAN CORPUSCULAR VOLUME 91.1 fl (82.0-101.0); MEAN PLATELET VOLUME 10.8 fl (7.4-10.4); MONOCYTE # 0.4 10^3/ul (0.3-0.9); MONOCYTES % 5.5 % (0.0-11.0); NEUTROPHIL # 6.5 10^3/ul (1.6-7.5); NEUTROPHILS % 84.6 % (39.0-77.0); NUCLEATED RED BLOOD CELLS% 0.3 /100WBC (0.0-0.0); RED BLOOD COUNT 3.49 10^6/ul (4.20-5.40); RED CELL DISTRIBUTION WIDTH 18.2 % (11.5-14.5)
[2017-12-08 07:07] LABS: POSITIVE DIFF @See below
[2017-12-08 07:08] LABS: PLATELET COUNT 94 10^3/UL (140-415)
[2017-12-08 07:15] LABS: AMMONIA 89 umol/l (9-30)
[2017-12-08 07:22] LABS: ALANINE AMINOTRANSFERASE 33 IU/L (13-69); ALBUMIN 2.6 g/dl (3.3-4.9); ALBUMIN/GLOBULIN RATIO 0.83; ALKALINE PHOSPHATASE 93 IU/L (42-121); ANION GAP 18 (8-16); ASPARTATE AMINO TRANSFERASE 47 IU/L (15-46); BILIRUBIN,INDIRECT 0.8 mg/dl (0-1.1); BILIRUBIN,TOTAL 1.2 mg/dl (0.2-1.3); BLOOD UREA NITROGEN 37 mg/dl (7-20); CALCIUM 9.3 mg/dl (8.4-10.2); CARBON DIOXIDE 20 mmol/L (21-31); CHLORIDE 99 mmol/L (97-110); CREATININE 3.02 mg/dl (0.44-1.00); GLUCOSE 261 mg/dl (70-220); MAGNESIUM 1.5 mg/dl (1.7-2.5); PHOSPHORUS 4.8 mg/dl (2.5-4.9); POTASSIUM 3.5 mmol/L (3.5-5.1); SODIUM 133 mmol/L (135-144); TOTAL PROTEIN 5.7 g/dl (6.1-8.1)
[2017-12-08 07:24] LABS: HEMOGLOBIN A1C 5.6 % (0-5.9)
[2017-12-08] MEDS: RIFAXIMIN 550 MG TAB PO ×2 (08:25→22:05)
[2017-12-08] MEDS: LACTULOSE 30ML CUP PO ×2 (08:25→22:05)
[2017-12-08] MEDS: ONDANSETRON 4 MG INJ IV ×2 (16:48→22:36)
[2017-12-08] MEDS ORDERED: INSULIN GLARGINE [LANtus] 3 ML PEN SC (20:00)
[2017-12-08] MEDS: INSULIN GLARGINE [LANtus] 3 ML PEN SC (22:03)
[2017-12-08] MEDS: MAGNESIUM OXIDE 400 MG TAB PO (22:05)
[2017-12-08] MEDS: ALBUMIN HUMAN 25% 100 ML IV (22:05)
[2017-12-09] MEDS: METOCLOPRAMIDE 10 MG INJ IV ×2 (00:43→16:14)
[2017-12-09] MEDS: ACCU-CHEK XX (00:46)
[2017-12-09] MEDS: ALBUMIN HUMAN 25% 100 ML IV ×2 (04:55→12:23)
[2017-12-09] MEDS: ONDANSETRON 4 MG INJ IV ×3 (05:46→21:04)
[2017-12-09] MEDS: morphine LIQ (10 MG/5 ML) CUP PO ×4 (05:46→21:01)
[2017-12-09 06:18] LABS: ADD MAN DIFF? NO
[2017-12-09 06:24] LABS: ABNORMAL IP MESSAGE 1; BASOPHILS % 0.1 % (0.0-2.0); EOSINOPHILS % 0.4 % (0.0-7.0); HEMATOCRIT 28.5 % (37.0-47.0); HEMOGLOBIN 9.4 g/dl (12.0-16.0); LYMPHOCYTES % 11.4 % (15.0-51.0); MEAN CORPUSCULAR VOLUME 91.1 fl (82.0-101.0); MEAN PLATELET VOLUME 10.1 fl (7.4-10.4); MONOCYTE # 0.5 10^3/ul (0.3-0.9); MONOCYTES % 5.7 % (0.0-11.0); NEUTROPHIL # 7.3 10^3/ul (1.6-7.5); NEUTROPHILS % 81.3 % (39.0-77.0); PLATELET COUNT 86 10^3/UL (140-415); RED BLOOD COUNT 3.13 10^6/ul (4.20-5.40)
[2017-12-09 06:25] LABS: POSITIVE DIFF @See below
[2017-12-09 06:43] LABS: INR 2.93; PROTIME 31.4 Sec (11.9-14.9); PT RATIO 2.5
[2017-12-09 06:50] LABS: PARTIAL THROMBOPLASTIN TIME 47.8 Sec (25.0-35.0)
[2017-12-09 06:53] LABS: ANION GAP 15 (8-16); BLOOD UREA NITROGEN 39 mg/dl (7-20); CALCIUM 9.1 mg/dl (8.4-10.2); CARBON DIOXIDE 22 mmol/L (21-31); CHLORIDE 102 mmol/L (97-110); GLUCOSE 115 mg/dl (70-220); MAGNESIUM 1.6 mg/dl (1.7-2.5); POTASSIUM 3.5 mmol/L (3.5-5.1); SODIUM 135 mmol/L (135-144)
[2017-12-09] MEDS: INSULIN ASPART [NOVOLOG] 3 ML PEN SC ×7 (08:00→21:00)
[2017-12-09] MEDS: LIDOCAINE 1% (MDV) 10 ML INJ (09:04)
[2017-12-09] MEDS: LACTULOSE 30ML CUP PO ×2 (09:16→20:57)
[2017-12-09] MEDS: MAGNESIUM OXIDE 400 MG TAB PO ×2 (09:16→21:00)
[2017-12-09] MEDS: RIFAXIMIN 550 MG TAB PO ×2 (09:16→20:59)
[2017-12-09 11:17] LABS: MITOCHONDRIAL TB NEGATIVE (NEGATIVE); SMOOTH MUSCLE AB SCREEN NEGATIVE (NEGATIVE)
[2017-12-09 19:36] LABS: ANA SCREEN POSITIVE (NEGATIVE)
[2017-12-09 20:16] LABS: ANA PATTERN HOMOGENEOUS
[2017-12-09] MEDS: MUPIROCIN 2% 22 GM OINT TOP (20:58)
[2017-12-09] MEDS: INSULIN GLARGINE [LANtus] 3 ML PEN SC (21:13)
[2017-12-10] MEDS: ACCU-CHEK XX (02:00)
[2017-12-10] MEDS: METOCLOPRAMIDE 10 MG INJ IV ×2 (02:20→12:18)
[2017-12-10] MEDS: morphine LIQ (10 MG/5 ML) CUP PO ×4 (02:20→16:28)
[2017-12-10 06:17] LABS: ADD MAN DIFF? NO
[2017-12-10 06:22] LABS: ABNORMAL IP MESSAGE 1; BASOPHILS % 0.1 % (0.0-2.0); EOSINOPHILS # 0.1 10^3/ul (0.0-0.5); EOSINOPHILS % 0.6 % (0.0-7.0); HEMATOCRIT 29.6 % (37.0-47.0); HEMOGLOBIN 9.8 g/dl (12.0-16.0); LYMPHOCYTES # 1.1 10^3/ul (0.8-2.9); LYMPHOCYTES % 9.2 % (15.0-51.0); MEAN CORPUSCULAR HEMOGLOBIN 30.3 pg (29.0-33.0); MEAN CORPUSCULAR HGB CONC 33.1 g/dl (32.0-37.0); MEAN CORPUSCULAR VOLUME 91.6 fl (82.0-101.0); MONOCYTE # 0.7 10^3/ul (0.3-0.9); NEUTROPHIL # 9.5 10^3/ul (1.6-7.5); NEUTROPHILS % 83.2 % (39.0-77.0); NUCLEATED RED BLOOD CELLS% 0.2 /100WBC (0.0-0.0); PLATELET COUNT 78 10^3/UL (140-415); RED BLOOD COUNT 3.23 10^6/ul (4.20-5.40); RED CELL DISTRIBUTION WIDTH 18.6 % (11.5-14.5)
[2017-12-10 06:22] LABS: WHITE BLOOD COUNT 11.4 10^3/ul (4.8-10.8)
[2017-12-10 06:49] LABS: POSITIVE DIFF @See below
[2017-12-10 06:51] LABS: ANION GAP 14 (8-16); BLOOD UREA NITROGEN 39 mg/dl (7-20); CALCIUM 8.9 mg/dl (8.4-10.2); CARBON DIOXIDE 23 mmol/L (21-31); CHLORIDE 103 mmol/L (97-110); CREATININE 2.35 mg/dl (0.44-1.00); GLUCOSE 109 mg/dl (70-220); POTASSIUM 3.3 mmol/L (3.5-5.1); SODIUM 137 mmol/L (135-144)
[2017-12-10 06:53] LABS: MAGNESIUM 1.6 mg/dl (1.7-2.5)
[2017-12-10] MEDS: ONDANSETRON 4 MG INJ IV ×2 (07:42→16:28)
[2017-12-10] MEDS: INSULIN ASPART [NOVOLOG] 3 ML PEN SC ×4 (08:00→12:17)
[2017-12-10] MEDS: RIFAXIMIN 550 MG TAB PO (08:23)
[2017-12-10] MEDS: MAGNESIUM OXIDE 400 MG TAB PO (08:24)
[2017-12-10] MEDS: MUPIROCIN 2% 22 GM OINT TOP (08:24)
[2017-12-10] MEDS: LACTULOSE 30ML CUP PO (08:24)
[2017-12-10] MEDS: MAGNESIUM SULFATE 1 GM/D5W 100 ML IVPB (11:50)
[2017-12-10] MEDS: SOD CHLORIDE 0.45% 1,000 ML IV (11:50)
[2017-12-10 11:59] LABS: MAGNESIUM 1.6 mg/dl (1.7-2.5)
[2017-12-10 11:59] LABS: AMMONIA 133 umol/l (9-30)
[2017-12-10] MEDS: POTASSIUM CHLORIDE 100 ML IVPB (13:00)
== END 2017-12-10 17:46 | disposition home or self-care (01) | DRG 432 ==
LOC: PP2 13:20
PROC: 0W9G3ZZ Drainage of Peritoneal Cavity, Percutaneous Approach (ICD-10-PCS; principal; 2017-12-09)
DX: K70.31 Alcoholic cirrhosis of liver with ascites (principal); K76.7 Hepatorenal syndrome; N17.9 Acute kidney failure, unspecified; K72.90 Hepatic failure, unspecified without coma; E78.5 Hyperlipidemia, unspecified; E11.65 Type 2 diabetes mellitus with hyperglycemia; I12.9 Hypertensive chronic kidney disease with stage 1 through stage 4 chronic kidney disease, or unspecified chronic kidney disease; E11.22 Type 2 diabetes mellitus with diabetic chronic kidney disease; N18.9 Chronic kidney disease, unspecified; R21 Rash and other nonspecific skin eruption; E87.6 Hypokalemia; E83.42 Hypomagnesemia
CPT/HCPCS: 76705; 80048; 80053; 82140; 82962; 83036; 83735; 84100; 85025; 85610; 85730; 86038; 86255; 87081

== ENCOUNTER 2017-12-22 13:17 | Inpatient (IN) | payer OTHER ==
[2017-12-22] MEDS ORDERED: HYDROCODONE/APAP (5/325) TAB PO (15:00)
[2017-12-22] MEDS ORDERED: hydrALAzine 20 MG INJ IV (15:00)
[2017-12-22] MEDS ORDERED: ALBUTEROL/IPRATROPIUM (NEB) 3 ML AMP HHN (15:00)
[2017-12-22] MEDS ORDERED: NA PHOSPHATE/BIPHOS 133 ML ENEMA PR (15:00)
[2017-12-22] MEDS ORDERED: NACL 0.9% 3 ML SYG IV (15:00)
[2017-12-22] MEDS ORDERED: DOCUSATE SODIUM 100 MG CAP PO (15:00)
[2017-12-22] MEDS ORDERED: NITROGLYCERIN (SL) 0.4 MG TAB SL (15:00)
[2017-12-22] MEDS ORDERED: MAGNESIUM HYDROXIDE 30ML CUP PO (15:00)
[2017-12-22] MEDS ORDERED: ACETAMINOPHEN 325 MG TAB PO (15:00)
[2017-12-22] MEDS: morphine 2 MG INJ IV ×2 (15:58→22:04)
[2017-12-22] MEDS: SOD CHLORIDE 0.45% 1,000 ML IV (15:59)
[2017-12-22 17:14] LABS: FREE T4 (FREE THYROXINE) 1.07 ng/dl (0.79-2.35)
[2017-12-22] MEDS ORDERED: GLUCAGON 1 MG INJ IM (20:00)
[2017-12-22] MEDS ORDERED: GLUCOSE GEL 15 GRAM TUBE BUCCAL (20:00)
[2017-12-22] MEDS ORDERED: DEXTROSE 50% 50 ML SYRINGE IV ×2 (20:00)
[2017-12-22] MEDS ORDERED: GLUCOSE GEL 15 GRAM TUBE PO ×2 (20:00)
[2017-12-22] MEDS ORDERED: MICONAZOLE 100 MG VAG SUPP VAG (21:00)
[2017-12-22] MEDS: LACTULOSE 30ML CUP PO (21:20)
[2017-12-22] MEDS: ERTAPENEM SODIUM 0.5 GM in SOD CHLORIDE 0.9% 100 ML IVPB (21:21)
[2017-12-22] MEDS: HEPARIN 5,000 UNIT/0.5 ML VIAL SC (21:23)
[2017-12-22] MEDS: INSULIN ASPART [NOVOLOG] 3 ML PEN SC (21:25)
[2017-12-22] MEDS: METHYLPRED. NA SUCC 1,000 MG in SOD CHLORIDE 0.9% 100 ML IV (22:06)
[2017-12-23] MEDS: ACCU-CHEK XX (02:31)
[2017-12-23] MEDS: morphine 2 MG INJ IV ×2 (02:32→09:45)
[2017-12-23 06:14] LABS: ADD MAN DIFF? NO
[2017-12-23 06:22] LABS: ABNORMAL IP MESSAGE 1; HEMATOCRIT 24.7 % (37.0-47.0); HEMOGLOBIN 8.2 g/dl (12.0-16.0); LYMPHOCYTES # 0.7 10^3/ul (0.8-2.9); LYMPHOCYTES % 13.9 % (15.0-51.0); MEAN CORPUSCULAR HEMOGLOBIN 29.7 pg (29.0-33.0); MEAN CORPUSCULAR HGB CONC 33.2 g/dl (32.0-37.0); MEAN CORPUSCULAR VOLUME 89.5 fl (82.0-101.0); MEAN PLATELET VOLUME 11.1 fl (7.4-10.4); MONOCYTE # 0.2 10^3/ul (0.3-0.9); MONOCYTES % 3.1 % (0.0-11.0); NEUTROPHIL # 4.2 10^3/ul (1.6-7.5); NEUTROPHILS % 82.4 % (39.0-77.0); PLATELET COUNT 79 10^3/UL (140-415); RED BLOOD COUNT 2.76 10^6/ul (4.20-5.40); RED CELL DISTRIBUTION WIDTH 19.6 % (11.5-14.5)
[2017-12-23 06:22] LABS: WHITE BLOOD COUNT 5.1 10^3/ul (4.8-10.8)
[2017-12-23] MEDS: PANTOPRAZOLE (EC) 40 MG TAB PO (06:23)
[2017-12-23] MEDS: SOD CHLORIDE 0.45% 1,000 ML IV ×2 (06:23→17:58)
[2017-12-23 06:28] LABS: POSITIVE DIFF @See below
[2017-12-23 06:47] LABS: AMMONIA 87 umol/l (9-30)
[2017-12-23 06:49] LABS: CHOL/HDL RATIO 4.2 RATIO; CHOLESTEROL 81 mg/dl (100-200); HDL CHOLESTEROL 19 mg/dl (33-83); LDL CHOLESTEROL,CALCULATED 48 mg/dl; MAGNESIUM 1.6 mg/dl (1.7-2.5); TRIGLYCERIDES 71 mg/dl (0-149)
[2017-12-23 06:49] LABS: PHOSPHORUS 5.7 mg/dl (2.5-4.9)
[2017-12-23 06:54] LABS: ALANINE AMINOTRANSFERASE 39 IU/L (13-69); ALBUMIN 2.3 g/dl (3.3-4.9); ALBUMIN/GLOBULIN RATIO 0.82; ALKALINE PHOSPHATASE 109 IU/L (42-121); ANION GAP 13 (8-16); ASPARTATE AMINO TRANSFERASE 38 IU/L (15-46); BILIRUBIN,INDIRECT 0.7 mg/dl (0-1.1); BLOOD UREA NITROGEN 56 mg/dl (7-20); CALCIUM 8.8 mg/dl (8.4-10.2); CARBON DIOXIDE 21 mmol/L (21-31); CHLORIDE 109 mmol/L (97-110); CREATININE 2.62 mg/dl (0.44-1.00); GLUCOSE 262 mg/dl (70-220); POTASSIUM 4.1 mmol/L (3.5-5.1); SODIUM 139 mmol/L (135-144); TOTAL PROTEIN 5.1 g/dl (6.1-8.1)
[2017-12-23 07:48] LABS: THYROID STIMULATING HORMONE 0.469 MIU/L (0.465-4.680)
[2017-12-23 07:59] LABS: HEMOGLOBIN A1C 5.7 % (0-5.9)
[2017-12-23] MEDS: SEVELAMER CARBONATE 0.8 GM PKT PO ×3 (08:31→17:58)
[2017-12-23] MEDS: LACTULOSE 30ML CUP PO ×3 (08:31→21:34)
[2017-12-23] MEDS: INSULIN ASPART [NOVOLOG] 3 ML PEN SC ×4 (08:35→21:35)
[2017-12-23] MEDS: HEPARIN 5,000 UNIT/0.5 ML VIAL SC (08:35)
[2017-12-23] MEDS: SILVER SULFADIAZINE 1% 25 GM CR TOP (09:00)
[2017-12-23] MEDS ORDERED: METHYLPREDNISOLONE (10 MG/ML) IV SYG IV (09:00)
[2017-12-23] MEDS ORDERED: ERTAPENEM SODIUM 1 GM VIAL IVPB (09:00)
[2017-12-23] MEDS: MAGNESIUM SULFATE 1 GM/D5W 100 ML IVPB (09:45)
[2017-12-23] MEDS ORDERED: MAGNESIUM SULFATE 2 GM/50 ML 50 ML IVPB (10:00)
[2017-12-23 11:41] LABS: INR 1.63; PROTIME 19.7 Sec (11.9-14.9); PT RATIO 1.5
[2017-12-23 11:42] LABS: PARTIAL THROMBOPLASTIN TIME 35.6 Sec (25.0-35.0)
[2017-12-23] MEDS ORDERED: morphine 2 MG INJ IV (14:00)
[2017-12-23] MEDS: HYDROmorphONE 0.5 MG/0.5 ML SYG IV ×2 (17:59→23:01)
[2017-12-23] MEDS: MICONAZOLE 100 MG VAG SUPP VAG (21:00)
[2017-12-23] MEDS: METHYLPRED. NA SUCC 500 MG in DEXTROSE 5% 50 ML IVPB (21:24)
[2017-12-23] MEDS: ERTAPENEM SODIUM 0.5 GM in SOD CHLORIDE 0.9% 100 ML IVPB (22:02)
[2017-12-23] MEDS: LORAZEPAM 2 MG INJ IV (23:14)
[2017-12-24] MEDS: ACCU-CHEK XX (02:45)
[2017-12-24 05:14] LABS: SODIUM,URINE RANDOM < 5 mmol/L (30-90)
[2017-12-24 05:22] LABS: ADD UMIC YES; UR ASCORBIC ACID NEGATIVE (NEGATIVE); UR BACTERIA FEW /HPF (NONE SEEN); UR BILIRUBIN (Dip) NEGATIVE (NEGATIVE); UR BLOOD (Dip) 3+ mg/dL (NEGATIVE); UR BUDDING YEAST FEW /HPF (NONE SEEN); UR CLARITY CLEAR (CLEAR); UR COLOR YELLOW (YELLOW); UR GLUCOSE (Dip) 1+ mg/dL (NEGATIVE); UR HYALINE CAST FEW /HPF (NONE SEEN); UR KETONES (Dip) TRACE mg/dL (NEGATIVE); UR LEUKOCYTE ESTERASE (Dip) TRACE Leu/ul (NEGATIVE); UR NITRITE (Dip) NEGATIVE (NEGATIVE); UR RBC > 182 /HPF (0-5); UR SPECIFIC GRAVITY (Dip) 1.014 (1.003-1.030); UR TOTAL PROTEIN (Dip) 1+ mg/dl (NEGATIVE); UR UROBILINOGEN (Dip) NEGATIVE (NEGATIVE); UR WBC 3 /HPF (0-5)
[2017-12-24] MEDS: SOD CHLORIDE 0.45% 1,000 ML IV ×2 (05:56→12:48)
[2017-12-24] MEDS: PANTOPRAZOLE (EC) 40 MG TAB PO (05:56)
[2017-12-24 06:19] LABS: ADD MAN DIFF? NO
[2017-12-24 06:32] LABS: WHITE BLOOD COUNT 6.8 10^3/ul (4.8-10.8)
[2017-12-24 06:32] LABS: ABNORMAL IP MESSAGE 1; BASOPHILS % 0.1 % (0.0-2.0); HEMOGLOBIN 8.2 g/dl (12.0-16.0); LYMPHOCYTES % 14.2 % (15.0-51.0); MEAN CORPUSCULAR HEMOGLOBIN 30.4 pg (29.0-33.0); MEAN CORPUSCULAR HGB CONC 34.2 g/dl (32.0-37.0); MEAN CORPUSCULAR VOLUME 88.9 fl (82.0-101.0); MEAN PLATELET VOLUME 10.9 fl (7.4-10.4); MONOCYTE # 0.3 10^3/ul (0.3-0.9); MONOCYTES % 3.9 % (0.0-11.0); NEUTROPHIL # 5.2 10^3/ul (1.6-7.5); NEUTROPHILS % 77.7 % (39.0-77.0); PLATELET COUNT 90 10^3/UL (140-415); RED CELL DISTRIBUTION WIDTH 19.3 % (11.5-14.5)
[2017-12-24 06:42] LABS: POSITIVE DIFF @See below
[2017-12-24 07:03] LABS: ANION GAP 14 (8-16); BLOOD UREA NITROGEN 57 mg/dl (7-20); CALCIUM 9.1 mg/dl (8.4-10.2); CARBON DIOXIDE 19 mmol/L (21-31); CHLORIDE 108 mmol/L (97-110); CREATININE 2.86 mg/dl (0.44-1.00); GLUCOSE 251 mg/dl (70-220); SODIUM 137 mmol/L (135-144)
[2017-12-24] MEDS: LACTULOSE 30ML CUP PO ×3 (08:31→20:19)
[2017-12-24] MEDS: SEVELAMER CARBONATE 0.8 GM PKT PO ×3 (08:32→17:56)
[2017-12-24] MEDS: SILVER SULFADIAZINE 1% 25 GM CR TOP (08:36)
[2017-12-24] MEDS: INSULIN ASPART [NOVOLOG] 3 ML PEN SC ×4 (08:38→20:28)
[2017-12-24] MEDS: HYDROmorphONE 0.5 MG/0.5 ML SYG IV ×3 (10:39→20:23)
[2017-12-24] MEDS: SOD CHLORIDE 0.9% 250 ML IV* (11:07)
[2017-12-24] MEDS: ONDANSETRON 4 MG INJ IV (12:54)
[2017-12-24] MEDS: INSULIN GLARGINE [LANtus] 3 ML PEN SC (12:57)
[2017-12-24 15:40] LABS: INR 1.69; PROTIME 20.2 Sec (11.9-14.9); PT RATIO 1.6
[2017-12-24] MEDS: ERTAPENEM SODIUM 0.5 GM in SOD CHLORIDE 0.9% 100 ML IVPB (20:20)
[2017-12-24] MEDS: MICONAZOLE 100 MG VAG SUPP VAG (21:00)
[2017-12-24] MEDS: METHYLPRED. NA SUCC 500 MG in DEXTROSE 5% 50 ML IVPB (21:45)
[2017-12-24] MEDS: traMADol 50 MG TAB PO (21:45)
[2017-12-24] MEDS: LORAZEPAM 2 MG INJ IV (22:36)
[2017-12-25] MEDS: ACCU-CHEK XX (01:41)
[2017-12-25] MEDS ORDERED: ACCU-CHEK XX (02:00)
[2017-12-25] MEDS: HYDROmorphONE 0.5 MG/0.5 ML SYG IV ×2 (02:39→20:24)
[2017-12-25] MEDS: ALBUMIN HUMAN 5% 250 ML IV ×2 (05:33→07:01)
[2017-12-25] MEDS: PANTOPRAZOLE (EC) 40 MG TAB PO (05:48)
[2017-12-25 06:26] LABS: ADD MAN DIFF? NO
[2017-12-25 06:32] LABS: BASOPHILS % 0.1 % (0.0-2.0); HEMATOCRIT 25.2 % (37.0-47.0); HEMOGLOBIN 8.3 g/dl (12.0-16.0); LYMPHOCYTES % 11.3 % (15.0-51.0); MEAN CORPUSCULAR HEMOGLOBIN 29.4 pg (29.0-33.0); MEAN CORPUSCULAR HGB CONC 32.9 g/dl (32.0-37.0); MEAN CORPUSCULAR VOLUME 89.4 fl (82.0-101.0); MEAN PLATELET VOLUME 10.8 fl (7.4-10.4); MONOCYTE # 0.3 10^3/ul (0.3-0.9); MONOCYTES % 3.3 % (0.0-11.0); NEUTROPHIL # 6.9 10^3/ul (1.6-7.5); NEUTROPHILS % 80.3 % (39.0-77.0); NUCLEATED RED BLOOD CELLS% 0.2 /100WBC (0.0-0.0); PLATELET COUNT 125 10^3/UL (140-415); RED BLOOD COUNT 2.82 10^6/ul (4.20-5.40); RED CELL DISTRIBUTION WIDTH 18.9 % (11.5-14.5)
[2017-12-25 06:32] LABS: WHITE BLOOD COUNT 8.6 10^3/ul (4.8-10.8)
[2017-12-25 07:02] LABS: ANION GAP 13 (8-16); BLOOD UREA NITROGEN 59 mg/dl (7-20); CALCIUM 9.4 mg/dl (8.4-10.2); CARBON DIOXIDE 19 mmol/L (21-31); CHLORIDE 108 mmol/L (97-110); GLUCOSE 195 mg/dl (70-220); SODIUM 136 mmol/L (135-144)
[2017-12-25 07:11] LABS: INR 1.55; PROTIME 18.9 Sec (11.9-14.9); PT RATIO 1.5
[2017-12-25] MEDS: SOD CHLORIDE 0.45% 1,000 ML IV ×2 (07:37→22:37)
[2017-12-25] MEDS: INSULIN GLARGINE [LANtus] 3 ML PEN SC (08:04)
[2017-12-25] MEDS: LACTULOSE 30ML CUP PO ×3 (08:13→20:20)
[2017-12-25] MEDS: SEVELAMER CARBONATE 0.8 GM PKT PO ×3 (08:13→17:31)
[2017-12-25] MEDS: INSULIN ASPART [NOVOLOG] 3 ML PEN SC ×4 (08:15→20:46)
[2017-12-25] MEDS: SILVER SULFADIAZINE 1% 25 GM CR TOP (08:32)
[2017-12-25 10:06] LABS: TYPE AND SCREEN 1 1
[2017-12-25] MEDS: LIDOCAINE 1% (MDV) 10 ML INJ (15:48)
[2017-12-25] MEDS: ERTAPENEM SODIUM 0.5 GM in SOD CHLORIDE 0.9% 100 ML IVPB (20:20)
[2017-12-25] MEDS: MICONAZOLE 100 MG VAG SUPP VAG (21:00)
[2017-12-25] MEDS: METHYLPRED. NA SUCC 500 MG in DEXTROSE 5% 50 ML IVPB (21:47)
[2017-12-26] MEDS: ACCU-CHEK XX (02:54)
[2017-12-26] MEDS: HYDROmorphONE 0.5 MG/0.5 ML SYG IV ×4 (03:29→20:25)
[2017-12-26] MEDS: PANTOPRAZOLE (EC) 40 MG TAB PO (05:42)
[2017-12-26 06:10] LABS: ADD MAN DIFF? NO
[2017-12-26 06:13] LABS: BASOPHILS % 0.2 % (0.0-2.0); HEMATOCRIT 24.8 % (37.0-47.0); HEMOGLOBIN 8.4 g/dl (12.0-16.0); LYMPHOCYTES # 0.6 10^3/ul (0.8-2.9); LYMPHOCYTES % 9.8 % (15.0-51.0); MEAN CORPUSCULAR HEMOGLOBIN 29.7 pg (29.0-33.0); MEAN CORPUSCULAR HGB CONC 33.9 g/dl (32.0-37.0); MEAN CORPUSCULAR VOLUME 87.6 fl (82.0-101.0); MEAN PLATELET VOLUME 10.6 fl (7.4-10.4); MONOCYTE # 0.1 10^3/ul (0.3-0.9); MONOCYTES % 2.2 % (0.0-11.0); NEUTROPHIL # 5.3 10^3/ul (1.6-7.5); NEUTROPHILS % 83.7 % (39.0-77.0); NUCLEATED RED BLOOD CELLS% 0.3 /100WBC (0.0-0.0); PLATELET COUNT 118 10^3/UL (140-415); RED BLOOD COUNT 2.83 10^6/ul (4.20-5.40); RED CELL DISTRIBUTION WIDTH 18.7 % (11.5-14.5)
[2017-12-26 06:13] LABS: WHITE BLOOD COUNT 6.3 10^3/ul (4.8-10.8)
[2017-12-26 06:37] LABS: ANION GAP 13 (8-16); BLOOD UREA NITROGEN 57 mg/dl (7-20); CALCIUM 9.4 mg/dl (8.4-10.2); CARBON DIOXIDE 20 mmol/L (21-31); CHLORIDE 109 mmol/L (97-110); CREATININE 2.75 mg/dl (0.44-1.00); GLUCOSE 184 mg/dl (70-220); POTASSIUM 3.9 mmol/L (3.5-5.1); SODIUM 138 mmol/L (135-144)
[2017-12-26 06:53] LABS: POSITIVE DIFF @See below
[2017-12-26] MEDS: SEVELAMER CARBONATE 0.8 GM PKT PO ×3 (08:35→17:40)
[2017-12-26] MEDS: LACTULOSE 30ML CUP PO ×3 (08:35→20:23)
[2017-12-26] MEDS: INSULIN ASPART [NOVOLOG] 3 ML PEN SC ×4 (08:37→20:29)
[2017-12-26] MEDS: INSULIN GLARGINE [LANtus] 3 ML PEN SC (08:37)
[2017-12-26] MEDS: traMADol 50 MG TAB PO (08:38)
[2017-12-26] MEDS: SILVER SULFADIAZINE 1% 25 GM CR TOP (08:44)
[2017-12-26] MEDS: SOD CHLORIDE 0.45% 1,000 ML IV (11:56)
[2017-12-26 14:46] LABS: ADD UMIC YES; UR ASCORBIC ACID NEGATIVE (NEGATIVE); UR BACTERIA FEW /HPF (NONE SEEN); UR BILIRUBIN (Dip) NEGATIVE (NEGATIVE); UR BLOOD (Dip) 3+ mg/dL (NEGATIVE); UR BUDDING YEAST MANY /HPF (NONE SEEN); UR CLARITY SLIGHTLY CLOUDY (CLEAR); UR COLOR YELLOW (YELLOW); UR GLUCOSE (Dip) NEGATIVE (NEGATIVE); UR KETONES (Dip) NEGATIVE (NEGATIVE); UR LEUKOCYTE ESTERASE (Dip) 2+ Leu/ul (NEGATIVE); UR NITRITE (Dip) NEGATIVE (NEGATIVE); UR RBC 176 /HPF (0-5); UR SPECIFIC GRAVITY (Dip) 1.015 (1.003-1.030); UR TOTAL PROTEIN (Dip) 1+ mg/dl (NEGATIVE); UR UROBILINOGEN (Dip) NEGATIVE (NEGATIVE); UR WBC > 182 /HPF (0-5)
[2017-12-26 15:02] LABS: CREATININE, RANDOM URINE 125 mg/dL (20-320); MICROALBUMIN 7.4 mg/dL; MICROALBUMIN/CREATININE RATIO 59 (<30)
[2017-12-26] MEDS: ERTAPENEM SODIUM 0.5 GM in SOD CHLORIDE 0.9% 100 ML IVPB (20:23)
[2017-12-26] MEDS: ONDANSETRON 4 MG INJ IV (20:24)
[2017-12-26] MEDS: MICONAZOLE 100 MG VAG SUPP VAG (21:00)
[2017-12-26] MEDS: METHYLPRED. NA SUCC 500 MG in DEXTROSE 5% 50 ML IVPB (21:33)
[2017-12-27] MEDS: HYDROmorphONE 0.5 MG/0.5 ML SYG IV ×3 (01:27→11:44)
[2017-12-27] MEDS: ACCU-CHEK XX (01:29)
[2017-12-27] MEDS: PANTOPRAZOLE (EC) 40 MG TAB PO (05:51)
[2017-12-27 06:55] LABS: ABNORMAL IP MESSAGE 1; HEMATOCRIT 23.2 % (37.0-47.0); HEMOGLOBIN 7.9 g/dl (12.0-16.0); MEAN CORPUSCULAR HEMOGLOBIN 30.2 pg (29.0-33.0); MEAN CORPUSCULAR HGB CONC 34.1 g/dl (32.0-37.0); MEAN CORPUSCULAR VOLUME 88.5 fl (82.0-101.0); MEAN PLATELET VOLUME 10.8 fl (7.4-10.4); PLATELET COUNT 124 10^3/UL (140-415); RED BLOOD COUNT 2.62 10^6/ul (4.20-5.40); RED CELL DISTRIBUTION WIDTH 18.7 % (11.5-14.5)
[2017-12-27 06:55] LABS: WHITE BLOOD COUNT 7.1 10^3/ul (4.8-10.8)
[2017-12-27 07:07] LABS: AMMONIA 59 umol/l (9-30)
[2017-12-27 07:07] LABS: ADD MAN DIFF? YES; POSITIVE DIFF @See below
[2017-12-27 07:14] LABS: ALANINE AMINOTRANSFERASE 59 IU/L (13-69); ALBUMIN 2.3 g/dl (3.3-4.9); ALBUMIN/GLOBULIN RATIO 0.88; ALKALINE PHOSPHATASE 112 IU/L (42-121); ANION GAP 12 (8-16); ASPARTATE AMINO TRANSFERASE 75 IU/L (15-46); BILIRUBIN,INDIRECT 0.7 mg/dl (0-1.1); BLOOD UREA NITROGEN 55 mg/dl (7-20); CALCIUM 9.2 mg/dl (8.4-10.2); CARBON DIOXIDE 18 mmol/L (21-31); CHLORIDE 110 mmol/L (97-110); CREATININE 2.75 mg/dl (0.44-1.00); GLUCOSE 269 mg/dl (70-220); POTASSIUM 3.9 mmol/L (3.5-5.1); SODIUM 136 mmol/L (135-144); TOTAL PROTEIN 4.9 g/dl (6.1-8.1)
[2017-12-27 07:19] LABS: PHOSPHORUS 5.2 mg/dl (2.5-4.9)
[2017-12-27 07:23] LABS: INR 1.62; PROTIME 19.6 Sec (11.9-14.9); PT RATIO 1.5
[2017-12-27 07:24] LABS: PARTIAL THROMBOPLASTIN TIME 31.3 Sec (25.0-35.0)
[2017-12-27] MEDS: INSULIN GLARGINE [LANtus] 3 ML PEN SC (08:37)
[2017-12-27] MEDS: INSULIN ASPART [NOVOLOG] 3 ML PEN SC ×4 (08:37→21:41)
[2017-12-27] MEDS: SILVER SULFADIAZINE 1% 25 GM CR TOP (09:00)
[2017-12-27] MEDS: SEVELAMER CARBONATE 0.8 GM PKT PO ×3 (09:25→17:34)
[2017-12-27] MEDS: LACTULOSE 30ML CUP PO ×3 (09:25→21:35)
[2017-12-27 09:57] LABS: ANISOCYTOSIS 1+ (0-0); BAND NEUTROPHILS #M 0.7 10^3/ul (0.0-0.6); BAND NEUTROPHILS % (M) 11 % (0-4); LYMPHOCYTES #M 0.1 10^3/ul (0.8-2.9); LYMPHOCYTES % (M) 2 % (15-51); MICROCYTOSIS 1+ (0-0); PLATELET ESTIMATE DECREASED; POIKILOCYTOSIS 3+ (0-0); POLYCHROMASIA 3+ (0-0); SEG NEUT #M 6.2 10^3/ul (1.6-7.5); SEGMENTED NEUTROPHILS (M) % 87 % (39-77); SMUDGE%M 3 % (0-0)
[2017-12-27] MEDS: RIFAXIMIN 550 MG TAB PO ×3 (13:30→21:33)
[2017-12-27] MEDS: MICONAZOLE 2% 45 GM VAG CR VAG (15:59)
[2017-12-27] MEDS: FLUCONAZOLE 100 MG TAB PO (16:00)
[2017-12-27] MEDS: ONDANSETRON 4 MG INJ IV (16:00)
[2017-12-27] MEDS: morphine 2 MG INJ IV (17:35)
[2017-12-27] MEDS: MICONAZOLE 100 MG VAG SUPP VAG (21:00)
[2017-12-27] MEDS: traMADol 50 MG TAB PO (21:34)
[2017-12-28] MEDS: ACCU-CHEK XX (01:35)
[2017-12-28] MEDS: PANTOPRAZOLE (EC) 40 MG TAB PO (05:51)
[2017-12-28] MEDS: INSULIN GLARGINE [LANtus] 3 ML PEN SC (08:09)
[2017-12-28] MEDS: INSULIN ASPART [NOVOLOG] 3 ML PEN SC ×4 (08:10→20:59)
[2017-12-28] MEDS: morphine 2 MG INJ IV ×2 (08:43→17:45)
[2017-12-28] MEDS: SEVELAMER CARBONATE 0.8 GM PKT PO ×3 (08:47→17:51)
[2017-12-28] MEDS: RIFAXIMIN 550 MG TAB PO ×2 (08:48→20:54)
[2017-12-28] MEDS: FLUCONAZOLE 100 MG TAB PO (08:48)
[2017-12-28] MEDS: LACTULOSE 30ML CUP PO ×3 (08:53→20:55)
[2017-12-28 10:21] LABS: ADD MAN DIFF? NO
[2017-12-28 10:25] LABS: ABNORMAL IP MESSAGE 1; BASOPHILS % 0.1 % (0.0-2.0); HEMATOCRIT 23.8 % (37.0-47.0); HEMOGLOBIN 8.1 g/dl (12.0-16.0); LYMPHOCYTES # 0.4 10^3/ul (0.8-2.9); LYMPHOCYTES % 4.2 % (15.0-51.0); MEAN CORPUSCULAR HEMOGLOBIN 30.5 pg (29.0-33.0); MEAN CORPUSCULAR VOLUME 89.5 fl (82.0-101.0); MEAN PLATELET VOLUME 10.6 fl (7.4-10.4); MONOCYTE # 0.5 10^3/ul (0.3-0.9); MONOCYTES % 5.1 % (0.0-11.0); NEUTROPHIL # 7.9 10^3/ul (1.6-7.5); NEUTROPHILS % 88.3 % (39.0-77.0); PLATELET COUNT 137 10^3/UL (140-415); RED BLOOD COUNT 2.66 10^6/ul (4.20-5.40); RED CELL DISTRIBUTION WIDTH 19.2 % (11.5-14.5)
[2017-12-28 10:26] LABS: POSITIVE DIFF @See below
[2017-12-28 10:45] LABS: INR 1.63; PROTIME 19.7 Sec (11.9-14.9); PT RATIO 1.5
[2017-12-28 10:49] LABS: ALANINE AMINOTRANSFERASE 76 IU/L (13-69); ALBUMIN 2.6 g/dl (3.3-4.9); ALBUMIN/GLOBULIN RATIO 0.92; ALKALINE PHOSPHATASE 140 IU/L (42-121); ANION GAP 14 (8-16); ASPARTATE AMINO TRANSFERASE 108 IU/L (15-46); BILIRUBIN,INDIRECT 0.8 mg/dl (0-1.1); BILIRUBIN,TOTAL 1.1 mg/dl (0.2-1.3); BLOOD UREA NITROGEN 53 mg/dl (7-20); CALCIUM 9.2 mg/dl (8.4-10.2); CARBON DIOXIDE 17 mmol/L (21-31); CHLORIDE 108 mmol/L (97-110); CREATININE 2.79 mg/dl (0.44-1.00); GLUCOSE 155 mg/dl (70-220); POTASSIUM 3.4 mmol/L (3.5-5.1); SODIUM 136 mmol/L (135-144); TOTAL PROTEIN 5.4 g/dl (6.1-8.1)
[2017-12-28 10:55] LABS: ANION GAP 15 (8-16); BLOOD UREA NITROGEN 54 mg/dl (7-20); CALCIUM 9.3 mg/dl (8.4-10.2); CARBON DIOXIDE 16 mmol/L (21-31); CHLORIDE 108 mmol/L (97-110); CREATININE 2.72 mg/dl (0.44-1.00); GLUCOSE 154 mg/dl (70-220); POTASSIUM 3.4 mmol/L (3.5-5.1); SODIUM 136 mmol/L (135-144)
[2017-12-28] MEDS: SILVER SULFADIAZINE 1% 25 GM CR TOP (12:05)
[2017-12-28] MEDS ORDERED: NYSTATIN 30 GM POWDER BTL TOP (18:00)
[2017-12-28] MEDS: MICONAZOLE 100 MG VAG SUPP VAG (20:55)
[2017-12-29] MEDS: ONDANSETRON 4 MG INJ IV (01:51)
[2017-12-29] MEDS: morphine 2 MG INJ IV ×3 (01:51→21:00)
[2017-12-29] MEDS: ACCU-CHEK XX (02:00)
[2017-12-29] MEDS: HYDROCODONE/APAP (5/325) TAB PO (06:21)
[2017-12-29] MEDS: PANTOPRAZOLE (EC) 40 MG TAB PO (06:21)
[2017-12-29 06:39] LABS: WHITE BLOOD COUNT 11.8 10^3/ul (4.8-10.8)
[2017-12-29 06:39] LABS: HEMATOCRIT 22.4 % (37.0-47.0); HEMOGLOBIN 7.5 g/dl (12.0-16.0); MEAN CORPUSCULAR HEMOGLOBIN 30.4 pg (29.0-33.0); MEAN CORPUSCULAR HGB CONC 33.5 g/dl (32.0-37.0); MEAN CORPUSCULAR VOLUME 90.7 fl (82.0-101.0); MEAN PLATELET VOLUME 10.6 fl (7.4-10.4); NUCLEATED RED BLOOD CELLS% 0.4 /100WBC (0.0-0.0); PLATELET COUNT 135 10^3/UL (140-415); RED BLOOD COUNT 2.47 10^6/ul (4.20-5.40); RED CELL DISTRIBUTION WIDTH 20.2 % (11.5-14.5)
[2017-12-29 06:48] LABS: ADD MAN DIFF? YES; POSITIVE DIFF @See below
[2017-12-29 06:59] LABS: ALANINE AMINOTRANSFERASE 60 IU/L (13-69); ALKALINE PHOSPHATASE 114 IU/L (42-121); ANION GAP 10 (8-16); ASPARTATE AMINO TRANSFERASE 78 IU/L (15-46); BILIRUBIN,TOTAL 1.1 mg/dl (0.2-1.3); BLOOD UREA NITROGEN 53 mg/dl (7-20); CARBON DIOXIDE 19 mmol/L (21-31); CHLORIDE 110 mmol/L (97-110); CREATININE 2.47 mg/dl (0.44-1.00); GLUCOSE 124 mg/dl (70-220); POTASSIUM 3.6 mmol/L (3.5-5.1); SODIUM 135 mmol/L (135-144); TOTAL PROTEIN 4.5 g/dl (6.1-8.1)
[2017-12-29] MEDS: INSULIN ASPART [NOVOLOG] 3 ML PEN SC ×4 (08:15→21:00)
[2017-12-29] MEDS: INSULIN GLARGINE [LANtus] 3 ML PEN SC (08:43)
[2017-12-29] MEDS: FLUCONAZOLE 100 MG TAB PO (09:25)
[2017-12-29] MEDS: RIFAXIMIN 550 MG TAB PO ×2 (09:30→20:58)
[2017-12-29] MEDS: LACTULOSE 30ML CUP PO ×3 (09:31→20:59)
[2017-12-29] MEDS: SEVELAMER CARBONATE 0.8 GM PKT PO ×3 (09:32→17:27)
[2017-12-29 09:54] LABS: ANISOCYTOSIS 1+ (0-0); BAND NEUTROPHILS #M 0.2 10^3/ul (0.0-0.6); BAND NEUTROPHILS % (M) 2 % (0-4); BURR CELLS 3+ (0-0); ERYTHROBLAST% (NRBC) (M) 1 % (0-0); GIANT THROMBO% (M) 1 % (0-0); LYMPHOCYTES #M 1.2 10^3/ul (0.8-2.9); LYMPHOCYTES % (M) 11 % (15-51); METAMYELOCYTES #M 0.1 10^3/ul (0.0-0.0); METAMYELOCYTES %M 1 % (0-0); MICROCYTOSIS 1+ (0-0); MONOCYTE #M 0.5 10^3/ul (0.3-0.9); MONOCYTES % (M) 5 % (0-11); MYELOCYTES #M 0.1 10^3/ul (0.0-0.0); MYELOCYTES % (M) 1 % (0-0); PLATELET ESTIMATE NORMAL; POIKILOCYTOSIS 3+ (0-0); POLYCHROMASIA 3+ (0-0); SEG NEUT #M 9.5 10^3/ul (1.6-7.5); SEGMENTED NEUTROPHILS (M) % 80 % (39-77); SMUDGE%M 3 % (0-0)
[2017-12-29] MEDS: SILVER SULFADIAZINE 1% 25 GM CR TOP (12:40)
[2017-12-29] MEDS: MICONAZOLE 100 MG VAG SUPP VAG (21:00)
[2017-12-30] MEDS: HYDROCODONE/APAP (5/325) TAB PO ×4 (00:59→18:53)
[2017-12-30] MEDS: ACCU-CHEK XX (02:00)
[2017-12-30] MEDS: traMADol 50 MG TAB PO (03:14)
[2017-12-30] MEDS: PANTOPRAZOLE (EC) 40 MG TAB PO (05:20)
[2017-12-30] MEDS: morphine 2 MG INJ IV ×3 (05:20→23:58)
[2017-12-30 07:20] LABS: WHITE BLOOD COUNT 15.4 10^3/ul (4.8-10.8)
[2017-12-30 07:20] LABS: ABNORMAL IP MESSAGE 1; HEMATOCRIT 22.2 % (37.0-47.0); HEMOGLOBIN 7.5 g/dl (12.0-16.0); MEAN CORPUSCULAR HEMOGLOBIN 30.6 pg (29.0-33.0); MEAN CORPUSCULAR HGB CONC 33.8 g/dl (32.0-37.0); MEAN CORPUSCULAR VOLUME 90.6 fl (82.0-101.0); MEAN PLATELET VOLUME 10.7 fl (7.4-10.4); PLATELET COUNT 115 10^3/UL (140-415); RED BLOOD COUNT 2.45 10^6/ul (4.20-5.40); RED CELL DISTRIBUTION WIDTH 20.5 % (11.5-14.5)
[2017-12-30 07:35] LABS: ADD MAN DIFF? YES; POSITIVE DIFF @See below
[2017-12-30 08:01] LABS: ANION GAP 11 (8-16); BLOOD UREA NITROGEN 54 mg/dl (7-20); CALCIUM 8.6 mg/dl (8.4-10.2); CARBON DIOXIDE 16 mmol/L (21-31); CHLORIDE 105 mmol/L (97-110); CREATININE 2.28 mg/dl (0.44-1.00); GLUCOSE 145 mg/dl (70-220); POTASSIUM 3.4 mmol/L (3.5-5.1); SODIUM 129 mmol/L (135-144)
[2017-12-30 08:10] LABS: ANISOCYTOSIS 1+ (0-0); BAND NEUTROPHILS #M 0.9 10^3/ul (0.0-0.6); BAND NEUTROPHILS % (M) 6 % (0-4); EOSINOPHILS % (M) 2 % (0-7); LYMPHOCYTES % (M) 7 % (15-51); METAMYELOCYTES #M 0.1 10^3/ul (0.0-0.0); METAMYELOCYTES %M 1 % (0-0); MICROCYTOSIS 1+ (0-0); MONOCYTE #M 0.3 10^3/ul (0.3-0.9); MONOCYTES % (M) 2 % (0-11); MYELOCYTES #M 0.1 10^3/ul (0.0-0.0); MYELOCYTES % (M) 1 % (0-0); PLATELET ESTIMATE DECREASED; POLYCHROMASIA 3+ (0-0); SEG NEUT #M 12.6 10^3/ul (1.6-7.5); SEGMENTED NEUTROPHILS (M) % 81 % (39-77); SMUDGE%M 4 % (0-0)
[2017-12-30] MEDS: INSULIN GLARGINE [LANtus] 3 ML PEN SC (08:27)
[2017-12-30] MEDS: INSULIN ASPART [NOVOLOG] 3 ML PEN SC ×4 (08:29→20:40)
[2017-12-30] MEDS: FLUCONAZOLE 100 MG TAB PO (08:38)
[2017-12-30] MEDS: RIFAXIMIN 550 MG TAB PO ×2 (08:38→20:40)
[2017-12-30] MEDS: SEVELAMER CARBONATE 0.8 GM PKT PO ×3 (08:39→17:26)
[2017-12-30] MEDS: LACTULOSE 30ML CUP PO ×3 (08:40→20:40)
[2017-12-30] MEDS: SILVER SULFADIAZINE 1% 25 GM CR TOP ×2 (09:00→16:10)
[2017-12-30] MEDS: POTASSIUM CHLORIDE (SR) 20 MEQ TAB PO (17:26)
[2017-12-31] MEDS: ONDANSETRON 4 MG INJ IV (01:46)
[2017-12-31] MEDS: HYDROCODONE/APAP (5/325) TAB PO ×3 (01:46→21:53)
[2017-12-31] MEDS: ACCU-CHEK XX (02:00)
[2017-12-31] MEDS: PANTOPRAZOLE (EC) 40 MG TAB PO (06:12)
[2017-12-31 06:53] LABS: ANION GAP 9 (8-16); BLOOD UREA NITROGEN 54 mg/dl (7-20); CALCIUM 8.4 mg/dl (8.4-10.2); CARBON DIOXIDE 18 mmol/L (21-31); CHLORIDE 107 mmol/L (97-110); CREATININE 2.54 mg/dl (0.44-1.00); GLUCOSE 179 mg/dl (70-220); MAGNESIUM 1.9 mg/dl (1.7-2.5); PHOSPHORUS 3.9 mg/dl (2.5-4.9); POTASSIUM 3.9 mmol/L (3.5-5.1); SODIUM 130 mmol/L (135-144)
[2017-12-31] MEDS: INSULIN GLARGINE [LANtus] 3 ML PEN SC (07:57)
[2017-12-31] MEDS: INSULIN ASPART [NOVOLOG] 3 ML PEN SC ×4 (07:57→20:25)
[2017-12-31] MEDS: SEVELAMER CARBONATE 0.8 GM PKT PO ×3 (08:26→18:30)
[2017-12-31] MEDS: LACTULOSE 30ML CUP PO ×3 (08:26→20:25)
[2017-12-31] MEDS: RIFAXIMIN 550 MG TAB PO ×2 (08:26→20:25)
[2017-12-31] MEDS: FLUCONAZOLE 100 MG TAB PO (08:26)
[2017-12-31] MEDS: morphine 2 MG INJ IV ×2 (08:27→17:18)
[2017-12-31] MEDS: traMADol 50 MG TAB PO (13:57)
[2017-12-31] MEDS: LIDOCAINE 1% (MDV) 10 ML INJ (16:51)
[2017-12-31 17:16] LABS: FLUID TOTAL PROTEIN < 2.0 g/dl
[2017-12-31 17:19] LABS: FLD MN% 33.4 %; FLD PMN% 66.6 %; FLD RBC 0 /uL; FLD WBC 1537 /cmm
[2017-12-31 17:37] LABS: FLD TYPE PARACENTHESIS
[2017-12-31 17:37] LABS: FLD CLARITY HAZY; FLD COLOR YELLOW
[2018-01-01] MEDS: traMADol 50 MG TAB PO (00:22)
[2018-01-01] MEDS: morphine 2 MG INJ IV (01:45)
[2018-01-01] MEDS: ACCU-CHEK XX (02:00)
[2018-01-01] MEDS: HYDROCODONE/APAP (5/325) TAB PO (03:54)
[2018-01-01] MEDS: PANTOPRAZOLE (EC) 40 MG TAB PO (06:16)
== END 2018-01-01 07:59 | disposition left against medical advice (07) | DRG 595 ==
LOC: MS2 13:17
PROVIDERS: Hospitalist
PROC: 0W9G3ZX Drainage of Peritoneal Cavity, Percutaneous Approach, Diagnostic (ICD-10-PCS; principal; 2017-12-25)
PROC: 30233K1 Transfusion of Nonautologous Frozen Plasma into Peripheral Vein, Percutaneous Approach (ICD-10-PCS; 2017-12-25)
DX: L51.1 Stevens-Johnson syndrome (principal); K76.7 Hepatorenal syndrome; A41.9 Sepsis, unspecified organism; N17.9 Acute kidney failure, unspecified; E87.1 Hypo-osmolality and hyponatremia; I42.9 Cardiomyopathy, unspecified; D68.9 Coagulation defect, unspecified; K70.31 Alcoholic cirrhosis of liver with ascites; K72.90 Hepatic failure, unspecified without coma; N18.3 Chronic kidney disease, stage 3 (moderate); L51.2 Toxic epidermal necrolysis [Lyell]; N76.0 Acute vaginitis; D64.9 Anemia, unspecified; R73.9 Hyperglycemia, unspecified; E83.39 Other disorders of phosphorus metabolism; E83.42 Hypomagnesemia; F10.20 Alcohol dependence, uncomplicated; R53.81 Other malaise; E66.3 Overweight; Z68.32 Body mass index [BMI] 32.0-32.9, adult
CPT/HCPCS: 36430; 71045; 76705; 80048; 80053; 80061; 81001; 81003; 82043; 82140; 82962; 83036; 83735; 84100; 84155; 84157; 84300; 84439; 84443; 85025; 85610; 85730; 86850; 86900; 86901; 87070; 87081; 87086; 87102; 87116; 89051; 92610; 93306